=== PATIENT | female | born 1975 | race Asian ===

== ENCOUNTER 2024-10-13 15:16 | Inpatient (IN) | payer OTHER, SELFPAY ==
[2024-10-13] VITALS (9 sets, daily range): BP systolic 80–142; BP diastolic 70–114; BMI 26.6
[2024-10-13 14:15] LABS: Glucose - Point of Care 514 mg/dl (70-99)
--- NOTE | 2024-10-13 14:20 | PTCARENOTE ---
Patient arrived to [facility] recovery area with transport from [facility]. [facility] and placed on bed and tele monitor. Accu chek drawn and ORH, labs sent per order and protocol. Pt. AAO x 3 and tachypnic. Pt. on RA, POX
100%. Patient denies chest pain. Dr. Stevenson and hospitalist at bedside assessing patient and obtaining consent. Dr. Stevenson speaking to patient and about intubating patient prior to procedure and vocalized understanding. Patient to be
transferred to labor commissioner.
[2024-10-13 14:29] LABS: Venous Blood Gas B.E. -27.3 mmol/L (-4 to +4); Venous Blood Gas HCO3 5.2 mmol/L (22-27); Venous Blood Gas O2 Sat % 98.9 %; Venous Blood Gas pCO2 29 mmHg (35-48); Venous Blood Gas pO2 119 mmHg (30-50)
[2024-10-13 14:34] LABS: Venous Blood Gas pH 6.86 (7.32-7.43)
--- NOTE | 2024-10-13 14:37 | HPS.HSE ---
Addendum entered and electronically signed by MALIHA Noonan 10/13/24 22:48:
Consult for GI for severe microcytic anemia work up
Iron, B12 and Folate labs entered for morning
Original Note:
Family Physician
-
Family Physician: Elana Valadez
Chief Complaint
-
flu like symptoms
History of Present Illness
Patient is a 49-year-old female with no significant past medical history. She presented to [facility] ED for evaluation of flu like symptoms since Thursday. She reported that she had some chest pain on Thursday which resolved. She presented
short of breath, complaint of body aches and 2 episodes of bloody emesis. Has been utilizing Tylenol for pain, last dose at 0400. Reports having taken some aspirin. Patient does report drinking red Gatorade prior to emesis, but feels the second
episode of emesis contained clots and that episode she did not ingest any red Gatorade. Patient transferred from [facility] to [facility] for ACS requiring catheterization and DKA management. Patient denies any fever, chills, cough,
constipation, diarrhea or urinary symptoms.
Medical History
Past Medical History
Past Medical History: Reports None
Past Surgical History: Reports Other
Additional Past Surgical History:
x2
Social History
Tobacco: Non-smoker
Alcohol: Occasional
Personal:
Living: With Family
Family History
Family History: Other (Mother: DM)
Allergies / Home Medications
Allergies reflects when Allergies were last updated in [facility].
Home Medications with original date entered in [facility]
Allergy/Medication List:
Allergies
Allergy/AdvReac Type Severity Reaction Status Date / Time
No Known Allergies Allergy Unverified 10/13/24 15:08
Review of Systems
-
History Source: Patient
Constitutional: Reports Fever
EENT: Reports No Symptoms
Respiratory: Reports Cough and Trouble Breathing (shortness of breath)
Cardiac: Reports Chest Pain
Abdomen/GI: Reports Nausea, Vomiting and Other (bloody emesis )
: Reports No Symptoms
Musculoskeletal: Reports No Symptoms
Skin: Reports No Symptoms
Neurological: Reports No Symptoms
Endocrine: Reports No Symptoms
Hematologic/Lymphatic: Reports No Symptoms
Psych: Reports No Symptoms
Physical Exam
Vital Signs
Vital Signs
Temp Pulse Resp BP Pulse Ox
97.7 F 103 26 103/82 99
10/13/24 14:11 10/13/24 14:34 10/13/24 14:34 10/13/24 14:34 10/13/24 14:34
Physical Exam
General: Well Developed, Well Nourished and Appears in Distress
HEENT: NormoCephalic, Moist mucous membranes, Atraumatic, [place]ley Conjunctivae, Nose Appears Normal and Ears Appear Normal
Respiratory: Clear and Accessory Resp Muscle Use
Cardiac: S1/S2, Regular Rhythm and Tachycardia; No Murmur or Rub
Breast: Deferred by me
GI: Soft, Non Tender, Non Distended and Normal Bowel Sounds; No Organomegaly
Rectal: Deferred by Provider
Genito-urinary: Deferred by me
Musculoskeletal: No Clubbing, No Cyanosis and No Edema
Skin: Warm and IV/Catheter Site; No Rash
Neuro: Awake, Alert, AO x 3 and Nonfocal/grossly intact
Psych: Intact Judgment/Insight and Anxious
Data Reviewed
-
Medical Tests (Nuc Med, Echo, EKG etc): Report Reviewed by me
Lab Data: Labs Reviewed by me
Impression/Plan
-
IMPRESSION/PLAN:
#STEMI
EKG: Critical Test Result: STEMI
SINUS TACHYCARDIA
MINIMAL VOLTAGE CRITERIA FOR LVH, MAY BE NORMAL VARIANT ( [place] product )
INFERIOR INFARCT , POSSIBLY ACUTE
ANTEROSEPTAL INFARCT , POSSIBLY ACUTE
LATERAL INJURY PATTERN
PROLONGED QT
ACUTE AK / STEMI
Trop 38.600
- Admit to ICU
- consult cardiology
- consult molder fitting
- NPO
- IVF
- intubation planned prior to cardiac catheterization
#DKA
VBG pH: 6.86; pCO2: 29, pO2: 119, HCO3 5.2
Glucose 508
K+ 4.7
- insulin gtt protocol for DKA
- monitor BMP
- IVF
#acute kidney injury
BUN 28, Creat 1.2
- IVF
#mallor-mishra tear?
hematemesis possible
- Protonix IV BID
- monitor h/h as patient on heparin gtt
Code status: Full code
DVT Prophylaxis: Heparin gtt
--- NOTE | 2024-10-13 14:39 | W.PN.CARDCBS ---
Addendum entered and electronically signed by Beatriz Stevenson MD 10/13/24 18:07:
I saw and examined the patient.
The Etiologist's note was reviewed and I agree with the note.
Comment: Briefly, patient is a 49-year-old female with no known past medical history, last outpatient evaluation more than 11 years ago who presented to [facility] with generalized bodyaches, nausea and vomiting with 1 episode of possible
hematemesis after experiencing a full day of chest pain on Thursday, October 10, 2024 found to have significant in EKG changes concerning for an anterolateral ST elevation MD with Q waves throughout consistent with late presenting MD with presentation
complicated by severe metabolic acidosis secondary to DKA from new type 2 diabetes mellitus, HANNA, microcytic anemia. Of note, bedside urgent echocardiogram was completed at [facility] prior to transfer which showed estimated LVEF of 30 to
35% with wall motion abnormalities in the LAD territory and presence of left ventricular thrombus.
.
Upon presentation to the [facility] patient was immediately evaluated at bedside. She was found to be extremely tachypneic with significant work of breathing. Given concern that with her significant metabolic acidosis, with sedation she
may not be able to maintain her ventilation, we discussed urgent intubation especially in the light of repeat venous blood gas showing a pH of 6.86 (previously 7.03 at [facility] prior to transfer), pCO2 of 29 (20 previously at [place] [facility] prior to transfer) suggesting that she may be tiring out.
Prior to intubation informed consent was obtained reviewing the risk and benefits with patient, her as well as her aunt and uncle for urgent left and right heart catheterization.
Urgent lab work were sent and discussions were also had with admitting hospitalist team as well as ICU team who would be receiving the patient after heart catheterization.
See further recommendations based on heart catheterization report.
Beatriz Stevenson MD, [facility], [facility]
Total critical care time: 72mins
Original Note:
Today's Communication / Plan
-
Admit ICU post cath for DKA treatment
Intubate prior to cath with acute acidosis
[facility] +/- PCI
Impression / Plan
-
This is a summary, see scanned H&P
49 YOF with no known medical hx has not seen MD since her last in 2013, she presented with several days of dyspnea, nausea, fatigue, and body pains. She experienced significant chest pain on Thursday but thought it was gas and it eventually
subsided. After that she continued to feel short of breath and nauseous.
She vomited several times and today noticed some small clots in her emesis.
She came to the ED and EKG showed anterolateral ST elevations with Q waves.
There were also some ST elevations in the inferior leads with WI depression.
Given somewhat atypical presentation and EKG findings, patient was sent for stat CT chest to rule out esophageal tear leading to pericarditis. This was negative.
Labs then returned and showed troponin elevated to 2400, with leukocytosis to 33, thrombocytosis to 700. Then, chemistry results returned and showed DKA with severe hyperglycemia and acidosis to 7.0 on VBG.
Currently patient denies any active chest pain and remains hemodynamically stable aside from mild sinus tachycardia to 100.
She does admit to polyuria and polydipsia for at least the past 2 weeks. No prior known diagnosis of diabetes. But does have family members with diabetes.
Stat echo performed in the emergency department shows moderately depressed LV function with EF around 35%. Anteroseptum, anterior, apical segments appear severely hypokinetic. Contrast echo views show mural apical LV thrombus.
10/13/24: CTA chest
1. No definite CT evidence for esophageal rupture. No evidence of pneumomediastinum.
2. 1.4 cm ovoid structure interposed between the distal esophagus and aorta. This likely represents a paraesophageal lymph node. A small extraluminal collection from the distal esophagus cannot be entirely excluded. If clinical symptoms persist
consider barium swallow /esophagram, as a follow-up
3. Fatty infiltration of the liver
4. Cholelithiasis
Impression:
Late presentation MD
Acute systolic HFrEF 30-35%
Apical mural thrombus of LV
Acute DKA, newly diagnosed diabetes
Lactic acidosis
HANNA Cr 1.6 pre CTA chest
Acute Transaminitis
Plan:
Transferred today for [facility] with EKG showing large anterolateral ST elevations with Q waves.
Tachycardic and tachypneic, VBG acidotic 6.86
denies cp currently
Plan to intubate pre cath with her worsening acidosis
serial troponin to peak
ASA 325mg given at [facility]
DKA start insulin drip now, hospitalist to manage
LV thrombus - will need anticoagulation, will resume heparin drip after cath
Trend LFT's - ALT 64, AST 478, Alk phos 163
WBC 33 and PLT 700. Hemoglobin nearly normal at 10.8.
VB.03/20. Lactic acid 2.7
BMP: Sodium 126, potassium 5.8, chloride 88, CO2 5.7, anion gap 32, BUN 33, creatinine 1.6. Glucose 713.
Troponin 2494. CPK 1591
Progress Note - Creative Services Producer
Subjective
Date of Service: October 13, 2024
denies cp, working to breath, very dry mouth, polyuria
Objective
Labs:
Laboratory Last Values
WBC 33.7 10^3/uL (4.5-11.0) H* 10/13/24 11:54
RBC 5.96 10^6/uL (4.20-5.40) H 10/13/24 11:54
Hgb 10.8 gm/dL (11.3-15.0) L 10/13/24 11:54
Hct 38.7 % (34.0-44.0) 10/13/24 11:54
MCV 65 fl (82-98) L 10/13/24 11:54
RDW 20.9 % (11.0-15.0) H 10/13/24 11:54
Plt Count 701 10^3/uL (150-400) H 10/13/24 11:54
Neut % (Auto) Not Reportable 10/13/24 11:54
Lymph % (Auto) Not Reportable 10/13/24 11:54
[place] % (Auto) Not Reportable 10/13/24 11:54
Eos % (Auto) Not Reportable 10/13/24 11:54
Baso % (Auto) Not Reportable 10/13/24 11:54
Neut # (Auto) 31.5 10^3/uL (2.2-8.0) H 10/13/24 11:54
Lymph # (Auto) 0.7 10^3/uL (1.0-4.0) L 10/13/24 11:54
[place] # (Auto) 1.1 10^3/uL (0.0-1.0) H 10/13/24 11:54
Eos # (Auto) 0.0 10^3/uL (0.0-0.4) 10/13/24 11:54
Baso # (Auto) 0.1 10^3/uL (0.0-0.1) 10/13/24 11:54
Neutrophils % (Manual) 87 % (40-78) H 10/13/24 11:54
Band Neuts % (Manual) 8 % (0-12) 10/13/24 11:54
Lymphocytes % (Manual) 2 % (21-49) L 10/13/24 11:54
Monocytes % (Manual) 3 % (0-10) 10/13/24 11:54
Eosinophils % (Manual) 0 % (0-4) 10/13/24 11:54
Basophils % (Manual) 0 % (0-1) 10/13/24 11:54
Giant Platelets Noted 10/13/24 11:54
Polychromasia Noted 10/13/24 11:54
Poikilocytosis Noted 10/13/24 11:54
Anisocytosis Noted 10/13/24 11:54
PT 16.3 SECONDS (11.5-14.4) H 10/13/24 11:54
INR 1.29 INR 10/13/24 11:54
APTT 27 SECONDS (23-37) 10/13/24 11:54
Specimen Type Venous 10/13/24 12:54
Puncture Site Venous 10/13/24 12:54
Patient Temperature 37.0 C 10/13/24 12:54
Horace Test Venous 10/13/24 12:54
VBG pH at Pat Temp 7.03 (7.32 - 7.42) L* 10/13/24 12:54
VBG pCO2 at Pat Temp 20.0 mmHg (41.0 - 51.0) L 10/13/24 12:54
VBG pO2 at Pat Temp 38.0 mmHg (25.0 - 40.0) 10/13/24 12:54
VBG HCO3 5.3 c)mmol/L (22.0 - 29.0) L 10/13/24 12:54
VBG O2 Saturation 49 % (60.0 - 80.0) L 10/13/24 12:54
VBG O2 Content 7.0 ml/dl 10/13/24 12:54
VBG Base Excess -23.8 (B) mmol (-4.0 - 5.0) L 10/13/24 12:54
VBG Hgb O2 Saturation 48.0 % (60.0 - 80.0) L 10/13/24 12:54
VBG Total Hgb 11.0 g/dL (12.1-17.0) 10/13/24 12:54
VBG Carboxyhemoglobin 1.3 % (0.0 - 9.0) 10/13/24 12:54
VBG Methemoglobin 0.7 % (0.0 - 2.0) 10/13/24 12:54
VBG Sodium 124 mmol/L (136.0 - 145.0) L 10/13/24 12:54
VBG Potassium 5.6 mmol/L (3.5 - 5.1) H 10/13/24 12:54
VBG Chloride 95.00 mmol/L (98.0 - 107.0) L 10/13/24 12:54
VBG Ionized Calcium 5.18 mg/dL (4.6 - 5.32) 10/13/24 12:54
VBG Lactate 2.70 mmol/L (0.5 - 1.4) H 10/13/24 12:54
Sodium 126 mmol/L (136-145) L 10/13/24 11:54
Potassium 5.8 mmol/L (3.5-5.1) H 10/13/24 11:54
Chloride 88 mmol/L (98-107) L 10/13/24 11:54
Carbon Dioxide 5.7 mmol/L (22.0-29.0) L* 10/13/24 11:54
Anion Gap 32 (7-16) H* 10/13/24 11:54
BUN 33 mg/dL (6-20) H 10/13/24 11:54
Creatinine 1.61 mg/dL (0.50-0.90) H 10/13/24 11:54
GFR Calculation 39 (Over 90) L 10/13/24 11:54
BUN/Creatinine Ratio 20.3 (7.0-25.0) 10/13/24 11:54
Random Glucose 715 mg/dL (50-200) H* 10/13/24 11:54
Calcium 9.8 mg/dL (8.6-10.0) 10/13/24 11:54
Total Bilirubin 0.4 mg/dL (0.1-1.2) 10/13/24 11:54
AST 478 U/L (0-32) H 10/13/24 11:54
ALT 64 U/L (0-33) H 10/13/24 11:54
Alkaline Phosphatase 163 U/L (35-105) H 10/13/24 11:54
Total Creatine Kinase 1591 U/L (20-180) H 10/13/24 11:54
CK-MB (CK-2) 78.1 ng/mL (0.0-5.0) H 10/13/24 11:54
CK-MB (CK-2) Rel Index 4.9 ng/100IU (0-2.8) H 10/13/24 11:54
Troponin T 5th Gen ng/L 2494 ng/L (0-14) H* 10/13/24 11:54
Total Protein 8.5 g/dL (6.5-8.3) H 10/13/24 11:54
Albumin 4.5 g/dL (3.5-5.2) 10/13/24 11:54
Globulin 4.0 g/dL (2.3-3.5) H 10/13/24 11:54
Albumin/Globulin Ratio 1.1 (1.1-1.7) 10/13/24 11:54
Influenza A (PCR) Negative (NEGATIVE) 10/13/24 11:42
Influenza B (RT-PCR) Negative (NEGATIVE) 10/13/24 11:42
POC RSV (DOREEN) Negative (NEGATIVE) 10/13/24 11:42
SARS-CoV-2 (PCR) Negative (NEGATIVE) 10/13/24 11:42
Vital Signs and I&O:
Vital Signs
Temp Pulse Resp BP Pulse Ox
97.7 F 103 26 103/82 99
10/13/24 14:11 10/13/24 14:34 10/13/24 14:34 10/13/24 14:34 10/13/24 14:34
Vital Signs
Temp Pulse Resp BP Pulse Ox
97.7 F 103 26 103/82 99
10/13/24 14:11 10/13/24 14:34 10/13/24 14:34 10/13/24 14:34 10/13/24 14:34
Physical Exam
Physical Exam
Mildly distressed with increased WOB, AOx3
S1, S2, RRR
CTAB, labored breathing, no wheeze
SNTND bsx4
No LE edema
--- NOTE | 2024-10-13 14:46 | HPS.HSE ---
Addendum entered and electronically signed by David Pride MD 10/13/24 14:51:
NOTE ENTERED IN WRONG PATIENT. DISREGARD.
Original Note:
Family Physician
-
Family Physician: Elana Valadez
Chief Complaint
-
shortness of breath
History of Present Illness
shortness of breath
Medical History
Past Medical History
Past Medical History: Reports Other (hypertension, Raynaud's)
Past Surgical History: Reports None
Social History
Tobacco: Non-smoker
Alcohol: Occasional
Drug: None
Family History
Family History: Other (His father had esophageal cancer.)
Allergies / Home Medications
Allergies reflects when Allergies were last updated in [facility].
Home Medications with original date entered in [facility]
Allergy/Medication List:
None
Review of Systems
-
History Source: Patient
A 12 point ROS was completed and negative except as noted: Yes
Constitutional: Reports No Symptoms
EENT: Reports No Symptoms
Respiratory: Reports No Symptoms
Cardiac: Reports No Symptoms
Abdomen/GI: Reports No Symptoms
: Reports No Symptoms
Musculoskeletal: Reports No Symptoms
Skin: Reports No Symptoms
Neurological: Reports No Symptoms
Endocrine: Reports No Symptoms
Hematologic/Lymphatic: Reports No Symptoms
Psych: Reports No Symptoms
Physical Exam
Vital Signs
Vital Signs
Temp Pulse Resp BP Pulse Ox
97.7 F 103 26 103/82 99
10/13/24 14:11 10/13/24 14:34 10/13/24 14:34 10/13/24 14:34 10/13/24 14:34
Physical Exam
General: Well Developed, Well Nourished and No Apparent Distress
HEENT: NormoCephalic, Moist mucous membranes and Atraumatic
Respiratory: Clear
Cardiac: S1/S2 and Regular Rhythm; No Murmur or Rub
GI: Soft, Non Tender, Non Distended and Normal Bowel Sounds; No Organomegaly
Rectal: Deferred by Provider
Musculoskeletal: No Clubbing, No Cyanosis and No Edema
Skin: No Rash
Neuro: Nonfocal/grossly intact
Data Reviewed
-
Lab Data: Labs Reviewed by me
Old Records: Reviewed
Impression/Plan
-
IMPRESSION:
PLAN:
# Symptomatic acute blood loss anemia secondary to upper GI bleeding
-Hemoglobin of 8.1
-Type and screen
-Check iron studies, B12 and folate
-Protonix drip
-GI consulted
-Clear liquids, n.p.o. past midnight for EGD tomorrow
Essential hypertension
-Continue losartan
Raynaud's disease
Full code
DVT prophylaxis�SCDs
N.p.o. past midnight
--- NOTE | 2024-10-13 15:08 | W.PN.ANESINT ---
Anesthesia Intubation Note
- Intubation Note
Intubation Note:
Diagnosis: [place], DKA, respiratory insufficiency
Blade: mac 4
Tube Size: 7.0
Depth: 21
Side Taped: right
Drugs Used: propofol 80mg, versed 2mg, fentanyl 100mcg, phenylephrine 400mcg, rocuronium 30mg
Grade View: 1
EtCO2 Present: yes
Atraumatic: yes
Attempts: 1
Insertion Start and Stop Time: 9554-0046
SaO2 Pre: 98
SaO2 Post: 98
Glidescope Used: yes
Other Airway Adjustments:
Pre-Oxygenated: yes
Portable Chest X-Ray: pending
RSI:
Suctioned:
Bilateral Breath Sounds Confirmed: yes
Vent Settings:
Settings per __x_Attending Physician
[2024-10-13 15:18] LABS: ALT (SGPT) 54 U/L (0-35); AST (SGOT) 437 U/L (14-36); Albumin 4.4 g/dl (3.5-5.0); Alkaline Phosphatase 160 U/L (38-126); Blood Urea Nitrogen 28 mg/dl (7-17); Calcium 9.1 mg/dl (8.4-10.2); Carbon Dioxide < 5 mmol/L (22-30); Chloride 103 mmol/L (98-107); Estimated Creatinine Clearance 50 ml/min; Glucose 508 mg/dl (70-99); Potassium 4.7 mmol/L (3.5-5.1); Sodium 133 mmol/L (135-145); Total Bilirubin 0.4 mg/dl (0.2-1.3); Total Protein 7.9 g/dl (6.3-8.2); eGFR 56.19
--- NOTE | 2024-10-13 15:28 | W.PN.UPDATE ---
Update Note
Progress Note Update
This is an addendum to the H&P written by Shania Zambrano on 10/13/2024. Patient seen and examined independently with KENO DEALER.
49-year-old female without past medical history presenting as transfer from [facility] for concern of myocardial infarction.
She started having chest pain 3 days ago which did resolve. She has also been having daily vomiting with blood noticed in the vomit however this was preceded by drinking red Gatorade. She has also been having increased urinary frequency.
She was noted to have blood sugar greater than 500, tachypnea. VBG showed pH of 7. Presentation was consistent with DKA.
EKG showed ST elevations in anterior lateral leads. Troponin of 38. Labs show HANNA with severe anion gap metabolic acidosis. Mild transaminitis.
Echocardiogram reportedly showed EF of 30 to 35% as well as LV thrombus.
NPO. IV fluids with normal saline with 20 of potassium. Insulin drip. Check urinalysis. Check hemoglobin A1c.
Trend troponins. Aspirin, heparin drip. Patient to be intubated prior to cardiac catheterization.
Unclear whether hematemesis is true hematemesis or secondary to Amanda-Meyer tear. 40 IV twice daily Protonix. Carefully monitor as patient will be on heparin drip and continue to monitor hemoglobin.
[2024-10-13 15:57] LABS: ACT-LR - POC 219 Seconds (116-155)
[2024-10-13 16:08] LABS: PCO2 21 mmHg (32-35); PO2 179 mmHg (83-108)
--- NOTE | 2024-10-13 16:10 | CON.INTV ---
Consultation
Consultation Request
Date/Time Consultation Requested: 10/13/2024 - 1539
Date/Time Consultation Performed: 10/13/2024 - 1600
Requesting Provider: MALIHA Noonan
Performing Provider: Dr. Nunez
Reason for Consultation: DKA/STEMI
Medical History
-
Chief Complaint: chest pain
History of Present Illness:
49-year-old F with no known PMHx who presented to OSH at [facility] on 10/13/2024 with several days of SOB, nausea, fatigue and body aches. HPI obtained from medical records as pt is intubated. She had chest pain this past Thursday, but thought it was gas
and it subsided. Her SOB and nausea persisted though. She came to the ER and EKG showed anterolateral ST elevations with Q-waves, with ST elevations in inferior leads with RI-depressions. Ct chest ruled out esophageal tear. Labs showed an
elevated troponin to 2400, WBC 33, platelet 700 and chemistry showed evidence of DKA with acidosis (pH 7 on VBG). She's been having polyuria and polydipsia x 2 weeks as well. She denies a personal or family Hx of diabetes. Of note, she vomited
blood clots on day of ER arrival as well. Stat echo in the ER at [facility] showed depressed LVEF around 35% with severely hypokinetic anteroseptal, anterior, apical segments. Contrast echo showed a mural apical thrombus. She was Dx with a late
presentation anterior ND, and was TRX here to [place] for cardiac intervention. Prior to TRX she was given 325mg ASA and started on heparin gtt. Given a NS bolus and insulin gtt also started.
When I saw the patient she had just returned from the [facility]. There was 100% thrombotic occlusion in the mid LAD we then organized nonocclusive thrombus in the proximal LAD with 95% stenosis. No significant improvement in flow despite multiple
passes of mechanical aspiration thrombectomy balloon angioplasty and vasodilators. The wedge pressure was 25 with a mPAP of 25 mmHg. Also normal left-sided filling pressures with normal cardiac output/index of 4.7/2.9, respectively. PVR was 2.72
Wood units. Patient currently intubated on AC/CMV at: 24/400/5/40%, with PIP: 27 cmH2O, VTe 493 mL and breathing at 24-30 breaths/min. She is sedated on fentanyl gtt at 50mcg/hr and currently on insulin drip at 6 units/hr. Her aunt had come to
bedside and I answered all of her questions.
PMHx: no known PMHx
PSHX: No known
Past Medical History
Past Medical History: Other (above as per HPI)
Past Surgical History: Other (above as per HPI)
Social History
Tobacco: Non-smoker
Alcohol: Other (unable to obtain)
Drug: Other (unable to obtain)
Family History
Family History: CAD (Father), Cancer (Aunt - breast cancer), Diabetes (Mother) and Hypertension (Mother)
Allergies / Home Medications
Allergies
Allergy/AdvReac Type Severity Reaction Status Date / Time
No Known Allergies Allergy Unverified 10/13/24 15:08
Review of Systems
-
Unable to Obtain full review of systems at this time due to: Patient Intubation
Vitals / Labs / Diagnostic Testing
Vital Signs
Temp Pulse Resp BP Pulse Ox
97.7 F 103 26 103/82 99
10/13/24 14:11 10/13/24 14:34 10/13/24 14:34 10/13/24 14:34 10/13/24 14:34
Lab Data
10/13/24 15:55
Laboratory Results
10/13/24
15:55
pH 7.01 L*
pCO2 21 L
pO2 179 H
HCO3 5.3 L*
O2 Delivery Level
Diagnostic Testing:
Physical Exam
-
HEENT: Normocephalic, Anicteric and Other (ETT in place)
Cardiovascular: S1/S2, Rub (n) and Peripheral Edema (n)
Respiratory: Wheeze (n), Rales (n), Rhonchi (n), Non-Labored Respirations and Other (Mechanical breath sounds bilaterally)
GI: Soft, Non Distended, Non Tender and Normal Bowel Sounds
Neurology: Tremors (n) and Other (Sedated)
Skin: Warm and Dry
General: Respiratory Distress (n), Fever (n) and Chills (n)
Assessment
-
Assessment: 49-year-old F with no known PMHx who presented to OSH at [facility] on 10/13/2024 with several days of SOB, nausea, fatigue and body aches. HPI obtained from medical records as pt is intubated. She had chest pain this past Thursday, but thought
it was gas and it subsided. Her SOB and nausea persisted though. She came to the ER and EKG showed anterolateral ST elevations with Q-waves, with ST elevations in inferior leads with RI-depressions. Ct chest ruled out esophageal tear. Labs
showed an elevated troponin to 2400, WBC 33, platelet 700 and chemistry showed evidence of DKA with acidosis (pH 7 on VBG). She's been having polyuria and polydipsia x 2 weeks as well. She denies a personal or family Hx of diabetes. Of note, she
vomited blood clots on day of ER arrival as well. Stat echo in the ER at [facility] showed depressed LVEF around 35% with severely hypokinetic anteroseptal, anterior, apical segments. Contrast echo showed a mural apical thrombus. She was Dx with a late
presentation anterior ND, and was TRX here to [place] for cardiac intervention. Prior to TRX she was given 325mg ASA and started on heparin gtt. Given a NS bolus and insulin gtt also started.
Chronic conditions STEVEDORE HOLD: Non-contributory
Impression:
#ACS with late presentation anterolateral STEMI
#DKA without history of diabetes
#Pseudohyponatremia due to DKA with hyperglycemia
#Severe metabolic acidosis due to above
#Acute respiratory failure with hypercapnia (undercompensation in the setting of metabolic acidosis)
#Apical LV mural thrombus (reported from outside hospital echo)
#Leukocytosis
#Anemia with reported bloody emesis at [facility]
#Thrombocytosis (likely reactive)
#Transaminitis
#Elevated troponin due to ACS as above in the setting of HANNA
#ICM with LVEF: 30-35% without current evidence of left-sided heart failure (PCWP: 12mmHg per [facility] today)
Plan:
- Patient going to [facility] today and I spoke with the pharmacy teacher, Dr. Stevenson, and recommended to intubate the patient prior to performing left heart catheterization given the patient's extremely low pH with risk of worsening respiratory acidosis
if anesthesia is given, which would put her at risk of cardiac arrest
- Patient now returned from the [facility] to the ICU; there was 100% thrombotic occlusion in the mid LAD we then organized nonocclusive thrombus in the proximal LAD with 95% stenosis. No significant improvement in flow despite multiple passes of
mechanical aspiration thrombectomy balloon angioplasty and vasodilators. The wedge pressure was 25 with an mPAP of 25 mmHg. Also normal left-sided filling pressures with normal cardiac output/index of 4.7/2.9, respectively. PVR was 2.72 Wood
units. Her PVR was 2.72, CO/CI: 4.78/2.94 (Franny), RA: 11/9, RV: 41/8
- Follow-up cath report and continue with heparin drip for now (defer antiplatelet medications + statin to cardiology
- Lightly sedate with goal RASS 0 to -2
- Continue to trend blood gas now that she is intubated to assure pH is improving
- Continue with mechanical ventilation with daily SAT/SBT if clinically indicated
- Titrate FiO2 + PEEP to maintain SpO2 >94%
- Maintain plateau pressure <30
- Frequent oropharyngeal + deep ETT suctioning as needed
- Given her leukocytosis, would start empiric antibiotics with Unasyn after cultures obtained (see below)
- Also check CXR as no imaging done since admitted here today
- Check blood and respiratory Cx; check UA with reflex to Cx
- Continue insulin gtt
- Start 1/2-NS with 20mEq KCl at 250cc/hr; add supplemental dextrose once BG <250mg/dL
- Trend electrolytes with q4hr BMP, Mg and PO4; trend VBG q12hr
- Avoid hypokalemia and avoid hypoglycemia
- Check q1hr FS while on insulin gtt
- Start bicarb gtt given the severe acidosis; once pH >7.25 then would stop bicarb gtt at that time
- Check A1C
- Check lipid profile with goal LDL<70
- Maintain MAP>65
- Replete electrolytes with K>4, Mg>2
- Maintain euglycemia with goal BG 140-180
- Trend H/H and transfuse if needed to keep Hb>8g/dL; keep plt>50k
- prn nebulized bronchodilators - not currently bronchospastic
- Stress ulcer ppx: On PPI IV BID currently given reports of UGIB at [facility]
- Consult GI
- Maintain large bore IV x2
- DVT ppx: heparin gtt given her LV thrombus
Critical care statement: A total of 43 minutes of critical care time was provided for this patient today. This includes management of unstable vital signs, evaluation of the patient at bedside, reviewing the patient's pertinent medical records
including radiographs, microbiology, laboratory evaluations, and discussion with primary team, consultants, pharmacy, nutrition, physical therapy, case management, charge nurse, critical care nursing, and respiratory therapy.
Data:
Outside Hospital TTE 10/13/2024:
LVEF: 30-35%; Multiple segmental abnormalities exist. Mild eccentric LVH; moderately decreased LV systolic function; grade II diastolic dysfunction, pseudonormal pattern; Laminated mural thrombus of the LV apex suggested on contrast images; normal
RV size and function; Normal LA by volume index and normal RA by area; Mild MR; RAP is 3mmHg with estimated RVSP: 17mmHg. No prior studies available for comparison.
[2024-10-13 16:12] LABS: HCO3 5.3 mmol/L (21-28); pH 7.01 (7.35-7.45)
[2024-10-13 16:15] LABS: ACT-LR - POC 266 Seconds (116-155)
[2024-10-13 16:16] LABS: Lactic Acid 0.8 mmol/L (0.7-2.0)
[2024-10-13 16:17] LABS: Potassium 3.9 mmol/L (3.5-5.1)
[2024-10-13 16:27] LABS: ACT-LR - POC 250 Seconds (116-155)
[2024-10-13 16:36] LABS: Glucose - Point of Care 411 mg/dl (70-99)
[2024-10-13 16:37] LABS: Hematocrit 31.2 % (37.0-47.0); Hemoglobin 9.1 g/dL (12.0-16.0); Mean Corp Hgb Conc. 29.2 g/dL (33.0-37.0); Mean Platelet Volume 9.8 fL (7.4-10.4); Platelet Count 639 10^3/uL (130-400); Red Cell Dist. Width 20.4 % (11.5-14.5); White Blood Cell Count 37.1 10^3/uL (4.8-10.8)
--- NOTE | 2024-10-13 17:00 | ITS.CL.CATH ---
Director Al[employer] Relations - Catheterization
Cardiac Catheterization
Procedure Report:
LEFT AND RIGHT HEART CATHETERIZATION
Date of Procedure: October 13, 2024
Referring: Hossein Aguirre MD
PROCEDURES:
1. Coronary angiogram.
2. Right heart catheterization.
3. Mechanical aspiration thrombectomy using penumbra CAT RX
4. Plain old balloon angioplasty
5. Ultrasound-guided access
6. Placement of a single-lumen catheter for right radial arterial line
INDICATION: Patient is a 49-year-old female with no known past medical history, last outpatient evaluation more than 11 years ago who presented to [facility] with generalized bodyaches, nausea and vomiting with 1 episode of possible
hematemesis after experiencing a full day of chest pain on Thursday, October 10, 2024 found to have significant in EKG changes concerning for an anterolateral ST elevation CA with Q waves throughout consistent with late presenting CA with presentation
complicated by severe metabolic acidosis secondary to DKA from new type 2 diabetes mellitus, HANNA, microcytic anemia with significant increased work of breathing requiring intubation right upon transfer being referred for urgent left and right heart
catheterization. Of note, bedside urgent echocardiogram was completed at [facility] prior to transfer which showed estimated LVEF of 30 to 35% with wall motion abnormalities in the LAD territory and presence of left ventricular thrombus.
ACCESS: 1. Right radial artery, 6 Swazi sheath, under ultrasound guidance
2. Right common femoral vein, 6 Swazi sheath, under ultrasound guidance using a micropuncture kit
Ultrasound was utilized for vascular access. The radial artery and right femoral vein was visualized under ultrasound, and the vessel was patent. An image was stored permanently in the patient's medical record for each. Under direct ultrasound
guidance, a 6 Swazi sheath was inserted into the artery and vein, respectively, using a micropuncture kit through a modified Seldinger technique.
HEMODYNAMICS : (mmHg)
RA (m) : 8
RV (s/d,m) : 41/8, 11
PA (s/d, m) : 33/18, 25
PCWP (m) : 12
PA saturation: 73.2% on 40% FiO2
AO saturation: 99.5% on 40% FiO2
RA saturation: 75.1% on 40% FiO2
Cardiac Output : 4.70 L/min by Franny calculation
Cardiac Index : 2.94 L/min/m-2 by Franny calculation
Systemic vascular resistance: 1404 dsc^(-5)
Pulmonary vascular resistance: 2.72 burroughs unit
Heart rate: 109 bpm
AO (s/d) : 111/75
LV pressures were not measured with known left ventricular thrombus on echocardiogram at [facility].
CORONARY FINDINGS
DOMINANCE: Right
LEFT MAIN: The left main artery is a large-caliber vessel, short which gives rise to the left anterior descending artery and the left circumflex artery. There is minimal luminal irregularities.
LEFT ANTERIOR DESCENDING: The left into descending artery is a large-caliber vessel which gives rise to multiple small caliber diagonal branches. There is 100% thrombotic occlusion in the mid LAD with PAUL 0 flow. Proximal LAD has a large burden
of what appears to be organized nonocclusive thrombus, with 95% stenosis.
CIRCUMFLEX: The left circumflex artery is a medium to large caliber vessel which gives rise to 2 major obtuse marginal branches, moderately tortuous, there is minimal luminal irregularities.
RIGHT CORONARY ARTERY: The right coronary artery is a large caliber, dominant, moderately tortuous vessel which is rise to the right posterior descending artery and the right posterolateral system. There is minimal luminal irregularities.
SEDATION: 103 minutes of procedural sedation was utilized. An independent medical surgical tech was present to assist with and help manage the patient's level of consciousness and physiologic status.
RADIATION SUMMARY: Fluoro Time (min): 12.1, Dose (mGy): 498.7, DAP (Gy.cm2) : 38.76
Closure Device: 1. Vascular band over right radial artery. Of note right radial arterial line was placed using the same access over a wire exchange using a single-lumen catheter.
2. Venous sheath was sutured in place for access.
CONCLUSIONS
1. Late presenting anterolateral ST elevation CA with There is 100% thrombotic occlusion in the mid LAD with PAUL 0 flow. Proximal LAD has a large burden of what appears to be organized nonocclusive thrombus, with 95% stenosis. No significant
improvement in flow despite multiple passes of mechanical aspiration thrombectomy, balloon angioplasty and vasodilators.
2. Normal right and left-sided filling pressures with normal cardiac output.
RECOMMENDATIONS
1. Wean radial band per protocol.
2. Daily baby aspirin. Hold off for now on adding second antiplatelet agent until microcytic anemia is worked up. IV unfractionated heparin drip in 4 hours if no issues at access sites given left ventricular thrombus.
3. Close monitoring in the ICU for management of DKA.
4. As hemodynamics allow, goal-directed medical therapy for ischemic cardiomyopathy. Continue to trend lab work given HANNA and abnormal LFTs.
5. Discussed with patient's family about her critically ill status.
Copy to: Hossein Aguirre MD and Lisandra García
Beatriz Stevenson MD, [facility], [facility]
[2024-10-13 17:06] LABS: Glucose 397 mg/dl (70-99)
[2024-10-13 17:36] LABS: Glucose - Point of Care 370 mg/dl (70-99)
[2024-10-13] MEDS: NSS 500 VEN SHEATH (17:49)
[2024-10-13] MEDS: NSS with KCL 20 MEQ 1000 IV (17:50)
[2024-10-13 18:22] LABS: PT 18.3 Sec (11.4-14.6)
[2024-10-13] MEDS: SODIUM BICARBONATE 1150 MEQ IV (18:24)
[2024-10-13] MEDS: 0.45% NACL with KCL 20 MEQ 1000 IV ×2 (18:25→22:20)
--- NOTE | 2024-10-13 18:30 | PTCARENOTE ---
#16 F belgica RAE insterted orally. Placement auscultated and brownish aspirated obtained, will get abd film to verify. Pt has her menses. May have been incont on arrival to ICU- but bladder scanned for [address] cathed for 450mls of yellow
urine. Repositioned.
[2024-10-13 18:37] LABS: Glucose - Point of Care 348 mg/dl (70-99)
[2024-10-13 18:43] LABS: APTT > 200 Sec (23.4-35.0)
[2024-10-13 19:00] LABS: Magnesium 2.6 mg/dl (1.6-2.3); Phosphorus 3.2 mg/dl (2.5-4.5); Potassium 4.2 mmol/L (3.5-5.1)
--- NOTE | 2024-10-13 19:32 | PTCARENOTE ---
Rec. patient from [facility] approx 1650.
Pt. Intubated/Sedated.
Sedation managed w/ Fentanyl gtt, see titration flowsheet for details.
Pt. has R radial TR band in place, Narcisa inserted into sheath site underneath TR band, Thumb of hand dusky, cool, ICU attending notified, no new orders.
Started on Bicarb, Insulin, 0.45/K.
Venous sheath intact.
Family bedside, all questions answered.
[2024-10-13] MEDS: PROTONIX IV 40 MG IV (19:34)
[2024-10-13] MEDS: NSS (PRESERVATIVE FREE) 10 ML IV (19:34)
[2024-10-13 19:52] LABS: B.E. -19.8 mmol/L; O2 Saturation % 99.8 % (94-98); PO2 209 mmHg (83-108)
[2024-10-13 19:54] LABS: HCO3 6.3 mmol/L (21-28); PCO2 16 mmHg (32-35)
[2024-10-13 19:56] LABS: Glucose - Point of Care 280 mg/dl (70-99)
[2024-10-13 20:07] LABS: Urine Albumin 1+ (Neg - Trace); Urine Bilirubin Negative (Negative); Urine Character Clear (Clear); Urine Color Yellow; Urine Glucose 3+ (Negative); Urine Ketone 3+ (Negative); Urine Leukocyte Negative (Negative); Urine Nitrite Negative (Negative); Urine Occult Blood 4+ (Negative); Urine Specific Gravity 1.015 (<1.030); Urine Urobilinogen Negative (Neg - 1+)
[2024-10-13 20:16] LABS: Potassium 4.7 mmol/L (3.5-5.1)
[2024-10-13 20:21] LABS: Blood Urea Nitrogen 26 mg/dl (7-17); Calcium 7.8 mg/dl (8.4-10.2); Carbon Dioxide < 5 mmol/L (22-30); Estimated Creatinine Clearance 66 ml/min; Glucose 266 mg/dl (70-99); Magnesium 2.5 mg/dl (1.6-2.3); Phosphorus 1.5 mg/dl (2.5-4.5); eGFR > 60.00
[2024-10-13 20:26] LABS: Chloride 112 mmol/L (98-107); Potassium 4.5 mmol/L (3.5-5.1); Sodium 134 mmol/L (135-145)
[2024-10-13 20:39] LABS: Urine Bacteria Few (Negative); Urine Granular Cast >15 /LPF (0); Urine Squamous Cell 0-2 /LPF (Few); Urine White Cell 0-2 /HPF (0-5)
[2024-10-13 20:44] LABS: Glucose - Point of Care 247 mg/dl (70-99)
--- NOTE | 2024-10-13 20:50 | PTCARENOTE ---
Received pt from previous RN. Pt opens eyes, nods her head appropriately, mouths words. NSR w/ prolonged QT on the monitor, + pedals. ETT #7 22 @ lip. AC 24/400/40%/5, O2 sat 100%. OG tube to low intermittent suction. Right thumb suzanna. TR band in
place, 3 mls removed @ 1949 site c/d/i, another 3 ml removed @ 2019, @ 2044 site was oozing additional 3 mls added (see worklist). Pt with a RASS score of 1, ICU BUTTER MELTER Sai notified Prop gtt added. Insulin, Bicarb, Fent and, 1/2 NS w/ K gtts (see
worklist). Heparin gtt on hold as per Dr. Hooker due to TR band oozing and PTT > 200, repeat PTT @ 0000. Safe environment maintained.
[2024-10-13] MEDS: DIPRIVAN 100 IV (20:52)
[2024-10-13 21:38] LABS: Glucose - Point of Care 230 mg/dl (70-99)
--- NOTE | 2024-10-13 22:36 | PTCARENOTE ---
Glucose of 75 is invalid, recheck was 233.
[2024-10-13 22:46] LABS: Glucose - Point of Care 75 mg/dl (70-99)
[2024-10-13 22:54] LABS: Triglycerides 183 mg/dl (10-149)
--- NOTE | 2024-10-13 23:30 | PTCARENOTE ---
2330 remaining air was removed from the TR band, site intact. Pt bladder scanned for 477 ml. Attempted to straight cath pt, pt voided while being straight cath, bladder scanned after for 0 ml. CHG bath provided. Safe environment maintained.
[2024-10-13 23:45] LABS: Glucose - Point of Care 161 mg/dl (70-99)
[2024-10-13] MEDS: D5/0.45%NSS with KCL 20 MEQ 1000 IV (23:51)
[2024-10-14] VITALS (45 sets, daily range): BP systolic 101–152; BP diastolic 60–100; BMI 27.6
[2024-10-14 00:35] LABS: Glucose - Point of Care 239 mg/dl (70-99)
[2024-10-14 00:48] LABS: APTT 29.8 Sec (23.4-35.0)
[2024-10-14 01:36] LABS: Blood Urea Nitrogen 23 mg/dl (7-17); Calcium 7.5 mg/dl (8.4-10.2); Carbon Dioxide 10 mmol/L (22-30); Chloride 110 mmol/L (98-107); Estimated Creatinine Clearance 74 ml/min; Glucose 215 mg/dl (70-99); Magnesium 2.3 mg/dl (1.6-2.3); Phosphorus 1.1 mg/dl (2.5-4.5); Potassium 4.1 mmol/L (3.5-5.1); Sodium 132 mmol/L (135-145); eGFR > 60.00
[2024-10-14] MEDS: HEPARIN 25000 UNITS/250 ML IV ×2 (01:39→18:11)
[2024-10-14 01:43] LABS: Glucose - Point of Care 280 mg/dl (70-99)
--- NOTE | 2024-10-14 01:57 | PTCARENOTE ---
Around midnight, with TR band removed, no longer able to obtain arterial line reading. No waveform, no blood return, oozing from insertion site with flush. ALEKS Randle at bedside, decision made to remove line. Labs sent and resulted. MD Hooker made
aware of recent PTT result and TR band now off. Order noted to restart Heparin gtt at 800units/hour. Pharmacy notified. Nathaniel joseph. Will repeat PTT at 0740am. Will monitor closely.
[2024-10-14 02:46] LABS: Glucose - Point of Care 284 mg/dl (70-99)
[2024-10-14] MEDS: SODIUM PHOSPHATE 255 MEQ IV (03:17)
[2024-10-14 03:45] LABS: Glucose - Point of Care 328 mg/dl (70-99)
[2024-10-14 03:55] LABS: Venous Blood Gas B.E. -12.4 mmol/L (-4 to +4); Venous Blood Gas HCO3 13.2 mmol/L (22-27); Venous Blood Gas O2 Sat % 98.8 %; Venous Blood Gas pCO2 28 mmHg (35-48); Venous Blood Gas pH 7.28 (7.32-7.43); Venous Blood Gas pO2 136 mmHg (30-50)
--- NOTE | 2024-10-14 04:03 | PTCARENOTE ---
Systems reviewed, no new changes in assessment. AM labs provided. Rate setting changed from 24 to 20. O2 sat 100%. Gtts maintained (see worklist). Safe environment maintained.
[2024-10-14 04:13] LABS: Venous Blood Gas O2 Therapy 50%
[2024-10-14 04:32] LABS: Hematocrit 22.9 % (37.0-47.0); Hemoglobin 6.9 g/dL (12.0-16.0); Mean Corp Hgb Conc. 30.1 g/dL (33.0-37.0); Mean Corpuscular Hgb 18.9 pg (27.0-31.0); Mean Corpuscular Volume 62.6 fL (81.0-99.0); Mean Platelet Volume 9.3 fL (7.4-10.4); Platelet Count 309 10^3/uL (130-400); Red Blood Cell Count 3.66 10^6/uL (4.20-5.40); Red Cell Dist. Width 19.6 % (11.5-14.5); White Blood Cell Count 22.3 10^3/uL (4.8-10.8)
[2024-10-14 04:38] LABS: Blood Urea Nitrogen 22 mg/dl (7-17); Calcium 7.8 mg/dl (8.4-10.2); Carbon Dioxide 11 mmol/L (22-30); Chloride 111 mmol/L (98-107); Estimated Creatinine Clearance 74 ml/min; Glucose 290 mg/dl (70-99); Magnesium 2.3 mg/dl (1.6-2.3); Phosphorus 1.3 mg/dl (2.5-4.5); Potassium 3.7 mmol/L (3.5-5.1); Sodium 133 mmol/L (135-145); eGFR > 60.00
[2024-10-14 04:51] LABS: Glucose - Point of Care 322 mg/dl (70-99)
[2024-10-14 05:01] LABS: Hematocrit 20.4 % (37.0-47.0); Hemoglobin 6.1 g/dL (12.0-16.0)
[2024-10-14] MEDS: NOVOLIN R INSULIN INFUSION 100 IV ×2 (05:27→18:25)
[2024-10-14 05:38] LABS: Glucose - Point of Care 349 mg/dl (70-99)
[2024-10-14] MEDS: D5/0.45%NSS with KCL 20 MEQ 1000 IV ×4 (06:16→23:55)
--- NOTE | 2024-10-14 06:23 | PTCARENOTE ---
1 unit PRBCs hanging, 15 min VS check complete. VSS.
[2024-10-14 06:33] LABS: Glucose - Point of Care 280 mg/dl (70-99)
--- NOTE | 2024-10-14 07:15 | PTCARENOTE ---
Bedside handoff. Intubated and sedated. Bilateral soft wrist restraints intact. Left AC#20g intima with Heparin, fentanyl, propofol, and IVF as charted in work list. Right Upper FA#20g intima with Insulin drip for DKA protocol. Right femoral venous
sheath sutured in place with 0.9nss @30ml/hr. PRBC's infusing via venous sheath. OGT secured 55cm to ETT. #7 ETT secured 22 cm centered, tolerating AC 20/400/.40/+5. Breath sounds CTA anteriorly, diminished posteriorly. Clear oral secretions. Scant
secretions from ETT. Hypoactive BSX4. Incontinent for a large amount of Clear yellow urine. +menses, Small amount of blood noted on sanitary napkin. Sadie care provided.
[2024-10-14 07:16] LABS: HDL Cholesterol 40 mg/dl; Iron < 20 ug/dl (37-170); LDL Cholesterol, Calculated 70 mg/dl; Total Cholesterol 147 mg/dl (50-199); Triglyceride 186 mg/dl (10-149); Very Low Density Lipoprotein 37 mg/dl (0-30)
[2024-10-14 07:56] LABS: Glucose - Point of Care 332 mg/dl (70-99)
[2024-10-14] MEDS: NSS (PRESERVATIVE FREE) IV (08:25)
--- NOTE | 2024-10-14 08:25 | W.PN.INTV ---
Today's Communication / Plan
Recommendations
Trend H&H and hold heparin drip for now, resume later this afternoon if Hb remains stable
EGD today shows esophageal ulcers with no evidence of acute GI bleed
Hold off on starting antiplatelet therapy at least until tomorrow, as per GI
Cardiology on board and recs appreciated
OGT removed and replaced with Dobbhoff tube for tube feeds at PO meds
Continue mechanical ventilation with daily SAT/SBT
Continue insulin drip
Trend [K] and serum HCO3
If bicarb level starts to drop <14 then resume bicarb drip
Patient remains critically ill, continue with ICU level of care
Assessment
-
Assessment: 49-year-old F with no known PMHx who presented to OSH at [facility] on 10/13/2024 with several days of SOB, nausea, fatigue and body aches. HPI obtained from medical records as pt is intubated. She had chest pain this past Thursday, but thought
it was gas and it subsided. Her SOB and nausea persisted though. She came to the ER and EKG showed anterolateral ST elevations with Q-waves, with ST elevations in inferior leads with NE-depressions. Ct chest ruled out esophageal tear. Labs
showed an elevated troponin to 2400, WBC 33, platelet 700 and chemistry showed evidence of DKA with acidosis (pH 7 on VBG). She's been having polyuria and polydipsia x 2 weeks as well. She denies a personal or family Hx of diabetes. Of note, she
vomited blood clots on day of ER arrival as well. Stat echo in the ER at [facility] showed depressed LVEF around 35% with severely hypokinetic anteroseptal, anterior, apical segments. Contrast echo showed a mural apical thrombus. She was Dx with a late
presentation anterior [place], and was TRX here to [place] for cardiac intervention. Prior to TRX she was given 325mg ASA and started on heparin gtt. Given a NS bolus and insulin gtt also started.
Chronic conditions CUPOLA CHARGER: Non-contributory
Impression:
#ACS with late presentation anterolateral STEMI
#DKA without history of diabetes
#Pseudohyponatremia due to DKA with hyperglycemia
#Severe metabolic acidosis due to above
#Acute respiratory failure with hypercapnia (undercompensation in the setting of metabolic acidosis)
#Apical LV mural thrombus (reported from outside hospital echo)
#Leukocytosis
#Anemia with reported bloody emesis at [facility]
#Thrombocytosis (likely reactive) - now resolved
#Transaminitis
#Elevated troponin due to ACS as above in the setting of HANNA � peaked at 38.6 on 10/13/2024
#ICM with LVEF: 30-35% without current evidence of left-sided heart failure (PCWP: 12mmHg per RHC today)
Plan:
- Patient went to [facility] on 10/13 and I spoke with the filament shaper, Dr. Stevenson, and recommended to intubate the patient prior to performing left heart catheterization given the patient's extremely low pH with risk of worsening respiratory acidosis
if anesthesia is given, which would put her at risk of cardiac arrest
- Patient returned from the [facility] to the ICU on 10/13; there was 100% thrombotic occlusion in the mid LAD we then organized nonocclusive thrombus in the proximal LAD with 95% stenosis. No significant in flow despite multiple passes of
mechanical aspiration thrombectomy balloon angioplasty and vasodilators. The wedge pressure was 25 with an mPAP of 25 mmHg. Also normal left-sided filling pressures with normal cardiac output/index of 4.7/2.9, respectively. PVR was 2.72 Wood
units. Her PVR was 2.72, CO/CI: 4.78/2.94 (Franny), RA: 11/9, RV: 41/8
- Hold heparin drip given her acute drop in Hb; resume once able to given her LV thrombus (defer antiplatelet medications + statin to cardiology); pending EGD today
- No benefit to try to reopen her LAD lesion - I discussed this case today with Dr. Weber
- Lightly sedate with goal RASS 0 to -2
- Continue to trend blood gas now that she is intubated to assure pH is improving
- Continue with mechanical ventilation with daily SAT/SBT if clinically indicated
- Titrate FiO2 + PEEP to maintain SpO2 >94%
- Maintain plateau pressure <30
- Frequent oropharyngeal + deep ETT suctioning as needed
- Trend her leukocytosis
- No signs of pneumonia on imaging and her urinalysis is clear with no signs of UTI
- Continue to observe off antibiotics
-Follow-up blood culture + sputum culture (collected 10/14/2024)
- Continue insulin gtt
- Continue D5-1/2NS with 20mEq KCl at 250cc/hr
- Trend electrolytes with q4hr BMP, Mg and PO4; trend VBG q12hr
- Avoid hypokalemia and avoid hypoglycemia
- Check q1hr FS while on insulin gtt
- A1C: 13.3 on 10/13/2024
- Goal LDL<70 (currently it is 70 oin 10/14/2024)
- Maintain MAP>65
- Replete electrolytes with K>4, Mg>2
- Maintain euglycemia with goal BG 140-180
- Trend H/H and transfuse if needed to keep Hb>8g/dL; keep plt>50k
- prn nebulized bronchodilators - not currently bronchospastic
- Stress ulcer ppx: On PPI IV BID currently given reports of UGIB at [facility]
- GI consulted and EGD performed today (10/14/2024) showing LA grade C esophagitis with esophageal ulcers with no bleeding or stigmata of recent bleeding normal stomach, and normal examined duodenum; recommend to remove OGT. We will replace with
Dobbhoff tube for tube feeds and PO medications
- Maintain large bore IV x2
- DVT ppx: heparin gtt currently held but will resume later today if H&H remained stable given her LV thrombus
Critical care statement: A total of 38 minutes of critical care time was provided for this patient today. This includes management of unstable vital signs, evaluation of the patient at bedside, reviewing the patient's pertinent medical records
including radiographs, microbiology, laboratory evaluations, and discussion with primary team, consultants, pharmacy, nutrition, physical therapy, case management, charge nurse, critical care nursing, and respiratory therapy.
Data:
Outside Hospital TTE 10/13/2024:
LVEF: 30-35%; Multiple segmental abnormalities exist. Mild eccentric LVH; moderately decreased LV systolic function; grade II diastolic dysfunction, pseudonormal pattern; Laminated mural thrombus of the LV apex suggested on contrast images; normal
RV size and function; Normal LA by volume index and normal RA by area; Mild MR; RAP is 3mmHg with estimated RVSP: 17mmHg. No prior studies available for comparison.
CXR 10/13/2024:
1. Endotracheal tube terminating 1.2 cm proximal to the ramin.
2. Nasogastric tube terminating in the stomach.
3. No radiographic evidence for acute pulmonary edema or pleural effusion.
Subjective Dataa
Subjective Data
Date of Service:
Date of Service: October 14, 2024
Chief Complaint: Coper Hand Follow Up
Subjective:
Patient was seen and evaluated today at bedside. Remains intubated on AC/CMV: 20/400/40/5 with PIP: 22 cmH2O, VTe 332mL and breathing at 20 breaths/minute.. No hematemesis seen this AM. Having pale red stool. She has an OGT. Being planned for
EGD today. Currently sedated on propofol at 10mcg/kg/min, fentanyl at 50mcg/hr, also on insulin drip at 4 units/h and PPI drip.
Review of Systems
General: Unobtainable - Sedation
Objective Data
Data Reviewed
Vital Signs / I&O / Oxygen:
Vital Signs
Temp Pulse Resp BP Pulse Ox
99.5 F 96 20 121/68 99
10/14/24 08:43 10/14/24 09:00 10/14/24 09:00 10/14/24 09:00 10/14/24 09:00
Intake and Output
10/13/24 10/14/24 10/15/24
06:59 06:59 06:59
Intake Total 4273.05 / 4442.95 793.5 / 793.5
Output Total 1450 / 1450
Balance 2823.05 / 2992.95 793.5 / 793.5
SaO2 [A/C] 100
SaO2 99
Physical Exam
General: Respiratory Distress (negative), Comfortable, Chills (negative) and Sweats (negative)
HEENT: Normocephalic and Anicteric
Cardiovascular: S1-S2 and Peripheral Edema (negative)
Respiratory: Wheeze (negative), Crackles (negative), Rhonchi (negative), Non-Labored Respirations, Stridor (negative) and ET Tube (Mechanical breath sounds heard bilaterally)
GI: Soft, Non Distended, Non Tender and Normal Bowel Sounds
Neurology: Tremors (negative) and Other (Sedated)
Skin: Warm, Dry, Cyanosis (negative) and Jaundice (negative)
Labs/Micro/Reports
Lab Data
10/14/24 04:39
10/14/24 08:23
Laboratory Results
10/13/24 10/13/24 10/13/24
15:55 17:53 19:37
PT 18.3 H
INR 1.50
APTT > 200 H*
pH 7.01 L* 7.20 L
pCO2 21 L 16 L*
pO2 179 H 209 H
HCO3 5.3 L* 6.3 L*
O2 Delivery Level
10/14/24 10/14/24 10/14/24
00:17 06:00 08:23
PT
INR
APTT 29.8 64.5 H
pH Cancelled
pCO2 Cancelled
pO2 Cancelled
HCO3 Cancelled
O2 Delivery Level Cancelled
[2024-10-14] MEDS: SUBLIMAZE 50 MCG IV ×3 (08:26→14:53)
[2024-10-14] MEDS: PROTONIX IV IV (08:26)
[2024-10-14] MEDS: MIRALAX TUBE (08:26)
[2024-10-14 08:28] LABS: Folate 6.5 ng/ml (2.76-20); Vitamin B12 856 pg/ml (239-931)
--- NOTE | 2024-10-14 08:31 | CON.GI ---
Addendum entered and electronically signed by David Huitron DO 10/14/24 14:34:
I saw and examined the patient.
The HEEL SCORER's note was reviewed and I agree with the note.
Comment: Agree with the detailed note as below. Given concern for reported hematemesis (reported blood clots) prior to arrival, will proceed with a diagnostic EGD for further evaluation. However, endoscopic therapy will be limited given her recent
anticoagulation for her LV thrombus. Suspect erosive esophagitis secondary to DKA and/or karla-mishra tear as likely source of her UGIB. No concern for variceal GIB. Has risk factors for PUD as well given previous reported NSAIDs. Doubt brisk UGIB
as without any melena or obvious blood from OG tubing since her admission. Has responded appropriately to recent blood transfusions as well. Given the need for ongoing anticoagulation and previous concern for hematemesis, will proceed with a
diagnostic EGD for further evaluation in ICU while patient is intubated/sedated. Again, endoscopic therapeutics will be limited but could potentially hemoclip and/or use hemospray if therapy were to be performed. Continue IV PPI gtt x 72 hrs. See
same day EGD report for additional findings and recommendations.
Addendum entered and electronically signed by MALIHA Khanna 10/14/24 09:27:
Discussed with Cardiology, Pulm Crit Care. Ok to hold Hep gtt for 4 hrs prior to EGD. They will place orders to hold.
Original Note:
Consultation
-
Date/Time Consultation Requested: 10/13/24 8961
Date/Time Consultation Performed: 10/14/24 3750
Requesting Provider: MALIHA Noonan
Performing Provider: Dr. Huitron/MALIHA Browne
Reason for Consultation: UGIB
Medical History
Chief Complaint / HPI
Chief Complaint: CP/TRF from [place] for ACS
History of Present Illness:
49-year-old female (currently intubated however, she was awake and able to communicate with me for some time. Also able to speak to her Jaiden [phone] who was able to provide past medical history and information gathered from the chart)
with no significant past medical history initially presented to [facility] emergency room for evaluation of flulike symptoms since Thursday. She was using Aleve 3 to 4 pills at home. She was having aches. She was drinking some red Gatorade
apparently. She did speak to her and called him because she started having vomiting. Initially she thought it was a Gatorade however then started vomiting red blood with some clots. She then proceeded to the emergency room at [place].
She was having chest discomfort. She was found to be in acute coronary syndrome and was transferred to [facility] for further management requiring cardiac catheterization and DKA management. The patient was given aspirin 325 mg and
started on heparin drip. She had 100% thrombotic occlusion of the mid LAD and nonocclusive thrombus in the proximal LAD with 95% stenosis. No significant improvement in flow despite multiple passes mechanical aspiration thrombectomy, balloon
angioplasty and vasodilators. We are asked to evaluate for upper GI bleed. Currently OG tube is in place with coffee-ground emesis which is approximately 50 to 60 cc. Hemoglobin is currently 6.1 down from 9.1. She is also having vaginal
bleeding. She remains on a heparin drip. She is receiving her first unit of packed red blood cells. She continues on a bicarb and insulin drip. She has had no rectal bleeding or melena from below. No bowel movement since arrival. I discussed
with pulmonary critical care as well as cardiology. Patient will need to remain on anticoagulation for at least 3 months. Discussed with patient was not having any prior abdominal discomfort. No history of upper or lower GI complaints
prior to this event. She does not smoke. She does not drink any alcohol.
Past Medical History
Past Medical History: None
Past Surgical History: (X 2)
Social History
Tobacco: Non-Smoker
Alcohol: None
Drug: None
Personal:
Living: With Family
Family History
Family History: Other (No family history gastrointestinal malignancy or IBD)
Allergies / Home Medications
Allergy/AdvReac Type Severity Reaction Status Date / Time
No Known Allergies Allergy Unverified 10/13/24 15:08
�Medication �Instructions �Recorded
cyclobenzaprine 10 mg tablet 10 mg PO HS 10/13/24
ibuprofen 600 mg tablet 600 mg PO TID PRN pain 10/13/24
norgestimate 0.18 mg/0.215 mg/0.25 1 tab PO DAILY 10/13/24
mg-ethinyl estradiol 25 mcg tablet
Review of Systems
-
Unable to obtain full review of systems at this time due to: Patient Intubation
Vital Signs
Temp Pulse Resp BP Pulse Ox
99.4 F 95 20 122/79 99
10/14/24 07:55 10/14/24 06:23 10/14/24 06:23 10/14/24 06:23 10/14/24 08:22
Physical Exam
Exam
General: Intubated
HEENT: Anicteric and Other (OG tube in place with approximately 60 cc of coffee-ground material removed)
Respiratory: Clear (Anterior)
Cardiac: Regular Rhythm (Tachycardic)
GI: Soft, Non Tender, Non Distended and Normal Bowel Sounds
Musculoskeletal: No Edema
Skin: Warm and Dry
Neuro: Sedated (There was a period of time that patient came up from a sedation vacation was able to communicate)
Results
WBC 22.3 10^3/uL (4.8-10.8) H 10/14/24 03:34
Hgb 6.1 g/dL (12.0-16.0) L* 10/14/24 04:39
Hct 20.4 % (37.0-47.0) L* 10/14/24 04:39
MCV 62.6 fL (81.0-99.0) L 10/14/24 03:34
Plt Count 309 10^3/uL (130-400) D 10/14/24 03:34
PT 18.3 Sec (11.4-14.6) H 10/13/24 17:53
INR 1.50 10/13/24 17:53
APTT 29.8 Sec (23.4-35.0) 10/14/24 00:17
Sodium 133 mmol/L (135-145) L 10/14/24 03:34
Potassium Cancelled 10/14/24 06:00
Chloride 111 mmol/L (98-107) H 10/14/24 03:34
Carbon Dioxide 11 mmol/L (22-30) L* 10/14/24 03:34
BUN 22 mg/dl (7-17) H 10/14/24 03:34
Creatinine 0.8 mg/dL (0.6-1.0) 10/14/24 03:34
Calcium 7.8 mg/dl (8.4-10.2) L 10/14/24 03:34
Total Bilirubin 0.4 mg/dl (0.2-1.3) 10/13/24 14:10
AST 437 U/L (14-36) H 10/13/24 14:10
ALT 54 U/L (0-35) H 10/13/24 14:10
Alkaline Phosphatase 160 U/L (38-126) H 10/13/24 14:10
Diagnostic Image Results:
Chest x-ray:
1. Endotracheal tube terminating 1.2 cm proximal to the ramin.
2. Nasogastric tube terminating in the stomach.
3. No radiographic evidence for acute pulmonary edema or pleural effusion.
Prior GI Procedures:
EGD: Never
Colonoscopy: Never
Assessment / Plan
-
She continues on a bicarb and insulin drip. 49-year-old female with no significant past medical history presented to [facility] with vomiting bright red blood, chest pain. Found to be in acute coronary syndrome. Transferred to [place]
hospital where she had cardiac catheterization The patient was given aspirin 325 mg and started on heparin drip. She had 100% thrombotic occlusion of the mid LAD and nonocclusive thrombus in the proximal LAD with 95% stenosis. No significant
improvement in flow despite multiple passes mechanical aspiration thrombectomy, balloon angioplasty and vasodilators. We are asked to evaluate for upper GI bleed. Currently OG tube is in place with coffee-ground emesis which is approximately 50 to
60 cc. Hemoglobin is currently 6.1 down from 9.1. She will receive her second unit of packed red blood cells at this time. She will need to remain on anticoagulation for her thrombus for at least 3 months after discussion with cardiology. After
discussion with cardiology, pulmonary critical care and with will proceed with diagnostic endoscopy on heparin in ICU at bedside.
Impression:
Hematemesis in the setting of DKA and anterior lateral ST [place]
Left ventricular thrombus requiring anticoagulation
Transaminitis-> likely secondary to shock
Microcytic anemia
Plan:
-Diagnostic EGD at bedside in ICU
-Continue pantoprazole drip
-Transfuse second unit of packed red blood cells
-Trend CBC, LFTs
-Will need further workup for microcytic anemia. Will require colonoscopy after off anticoagulation.
-Further recommendations to be forthcoming
-
-
Thank you for consultation and allowing me to participate in the patient's care. Please call the combination machine tool setter GI physician during the after hours with any questions or concerns.
[2024-10-14 08:32] LABS: Glucose - Point of Care 233 mg/dl (70-99)
[2024-10-14 08:48] LABS: Glucose - Point of Care 335 mg/dl (70-99)
[2024-10-14 08:48] LABS: APTT 64.5 Sec (23.4-35.0)
[2024-10-14 09:06] LABS: Blood Urea Nitrogen 17 mg/dl (7-17); Calcium 7.4 mg/dl (8.4-10.2); Carbon Dioxide 11 mmol/L (22-30); Chloride 109 mmol/L (98-107); Estimated Creatinine Clearance 76 ml/min; Glucose 328 mg/dl (70-99); Magnesium 2.1 mg/dl (1.6-2.3); Phosphorus 1.8 mg/dl (2.5-4.5); Potassium 3.6 mmol/L (3.5-5.1); Sodium 133 mmol/L (135-145); eGFR > 60.00
[2024-10-14 09:45] LABS: Glycohemoglobin (HgbA1c) 13.3 % (4.0-5.6)
[2024-10-14 09:48] LABS: Glucose - Point of Care 300 mg/dl (70-99)
[2024-10-14] MEDS: PROTONIX IV 80 MG IV (09:58)
[2024-10-14] MEDS: NSS (PRESERVATIVE FREE) 10 ML IV (09:58)
--- NOTE | 2024-10-14 10:07 | W.PN.CARDCBS ---
Today's Communication / Plan
-
Start ASA/statin/BB/ARB for STEMI/ICM
Heparin gtt for LV thrombus, ok to hold for EGD
Impression / Plan
-
Nursing Consultant: None, seen initially at [facility]
Impression:
Late presentation anterior [place]
Ischemic cardiomopathy LVEF 30-35%
Apical mural thrombus of LV
Acute DKA, newly diagnosed diabetes
Lactic acidosis
Acute on chronic microcytic anemia
HANNA
Acute Transaminitis
Stat echo performed in the emergency department showed moderately depressed LV function with EF around 35%. Anteroseptum, anterior, apical segments appear severely hypokinetic. Contrast echo views show mural apical LV thrombus.
10/13/24: CTA chest
1. No definite CT evidence for esophageal rupture. No evidence of pneumomediastinum.
2. 1.4 cm ovoid structure interposed between the distal esophagus and aorta. This likely represents a paraesophageal lymph node. A small extraluminal collection from the distal esophagus cannot be entirely excluded. If clinical symptoms persist
consider barium swallow /esophagram, as a follow-up
3. Fatty infiltration of the liver
4. Cholelithiasis
Plan:
-Transferred from [facility] as late presentation anterior STEMI, LVEF 30-35% with LAD territory wall motion abnormality and LV thrombus
-R/LHC 10/13/24 with 95% pLAD and 100% mLAD and attempts to restore coronary flow were unsuccessful
-Plan for medical management of CAD:
Start [id number] daily, hold on additional anti-platelet agent given transfusion dependent anemia
Start high intensity statin
Add BB and monitor for signs of acute HF
-Ischemic cardiomyopathy
Warm and well perfusion on exam, appears euvolemic
PCWP was 12 mmHg at time of R/LHC
Will likely require IV lasix in the event she receives additional blood products
Start BB as above
Start Low dose ARB with consideration to transition to Entresto
-LV apical thrombus:
Continue heparin gtt for now - ok to hold for EGD
Eventual transition to OAC when stable
-Transfusion depend anemia
Appreciate GI input, tentative plan for EGD today
Care coordinated with supervisor metalizing, interventionalist, GI and nursing
CC: 52 minutes
Progress Note - Nursing Consultant
Subjective
Date of Service: October 14, 2024
NAOE. Remains intubated and sedated in the MICU. Troponin is flat, ECG without significant changes.
Objective
Labs:
10/14/24 04:39
10/14/24 08:23
Labs
Hgb 6.1 g/dL (12.0-16.0) L* 10/14/24 04:39
Hct 20.4 % (37.0-47.0) L* 10/14/24 04:39
Plt Count 309 10^3/uL (130-400) D 10/14/24 03:34
PT 18.3 Sec (11.4-14.6) H 10/13/24 17:53
INR 1.50 10/13/24 17:53
APTT 64.5 Sec (23.4-35.0) H 10/14/24 08:23
Sodium 133 mmol/L (135-145) L 10/14/24 08:23
Potassium 3.6 mmol/L (3.5-5.1) 10/14/24 08:23
BUN 17 mg/dl (7-17) 10/14/24 08:23
Creatinine 0.8 mg/dL (0.6-1.0) 10/14/24 08:23
Glucose 328 mg/dl (70-99) H 10/14/24 08:23
Troponins
10/13/24 10/14/24
14:10 06:36
Troponin I 38.600 H* 37.800 H*
Vital Signs and I&O:
Vital Signs
Temp Pulse Resp BP Pulse Ox
100.3 F 99 20 123/76 100
10/14/24 09:58 10/14/24 09:58 10/14/24 09:58 10/14/24 09:58 10/14/24 09:58
Vital Signs
Temp Pulse Resp BP Pulse Ox
100.3 F 99 20 123/76 100
10/14/24 09:58 10/14/24 09:58 10/14/24 09:58 10/14/24 09:58 10/14/24 09:58
Intake & Output
10/12/24 10/13/24 10/14/24 10/15/24
06:59 06:59 06:59 06:59
Intake Total 4273.05 / 4442.95 793.5 / 793.5
Output Total 1450 / 1450
Balance 2823.05 / 2992.95 793.5 / 793.5
Physical Exam
Physical Exam
Gen: NAD
HEENT: NC/AT, sclera anicteric
Neck: No JVD
CV: RRR, NL s1/s2, no M/R/G
Lungs: Mechanically ventilated, clear lung cervantes
Abd: S/ND
Ext: No LE edema
Skin: Warm, dry.
Neuro: Sedated
[2024-10-14 10:45] LABS: Glucose - Point of Care 302 mg/dl (70-99)
[2024-10-14] MEDS: SUBLIMAZE 100 IV ×2 (10:46→18:03)
--- NOTE | 2024-10-14 11:49 | PTCARENOTE ---
Clarified with Automation And Controls Instructor to hold Heparin drip for EGD. Heparin drip now on hold as ordered.
--- NOTE | 2024-10-14 11:59 | CM ---
CM following re: discharge planning.
Reviewed pt's chart, met with pt and spoke to pt's Jaiden.
Pt is a 49 year old female, admitted with primary dx of ACS with late presentation anterolateral STEMI
Per Rounds meeting, pt remains intubated, continue supportive care.
Pt lives with and 3 children in a 2SH, 2 steps to enter. Pt's described the pt as independent in all areas [employer].
PCP: Elana Valadez
D/C plan: uncertain at this time and will depend on pt's progress.
CM will follow with discharge plan updates as hospitalization progresses
--- NOTE | 2024-10-14 11:59 | W.PN.HOSP.TC ---
Today's Communication/Plan
-
see plan
Assessment / Plan
Assessment / Plan
Gen: NAD, NCAT
CV: RRR, +S1/S2, no m/r/g.
Resp: CTAB, no rales, wheezes, or rhonchi.
Abd: +BS, soft, NT, ND
Skin: No rashes.
Neuro: sedated
Psych: calm
[facility] 10/13/24:
1. Late presenting anterolateral ST elevation GA with 100% thrombotic occlusion in the mid LAD with PAUL 0 flow. Proximal LAD has a large burden of what appears to be organized nonocclusive thrombus, with 95% stenosis. No significant improvement
in flow despite multiple passes of mechanical aspiration thrombectomy, balloon angioplasty and vasodilators.
2. Normal right and left-sided filling pressures with normal cardiac output.
Acute anterolateral STEMI:
-transfer from [facility]
-[facility] 10/13/24 as above, 95% prox LAD occlusion, 100% mid LAD occlusion, unable to restore flow
-cont heparin gtt
-cont ASA/statin/BB
-trop 38.6, trend
-cards following
-currently intubated/sedated with propofol
ICM/Acute HFrEF:
-Echo: LVEF 30-35% with LAD territory wall motion abnormality and LV thrombus
-cont BB/ARB
-may need lasix after pRBCs
Acute DKA:
-cont insulin gtt/IVFs
-trend AG until it closes
Acute blood loss anemia:
-GI following
-cont PPI gtt
-transfuse 2U pRBCs
-trend Hb
-bedside EGD
HANNA:
-resolved with IVFs
FULL/Heparin gtt
Total critical care time spent = 35 min
Anticipated Discharge: > 48 hours
Subjective/Interval History
-
Date of Service: October 14, 2024
Intubated/sedated.
Objective Data
-
Labs:
Laboratory Results
10/13/24 10/14/24 10/14/24
15:55 00:17 02:00
WBC
Hgb
Hct
Plt Count
APTT 29.8
HCO3 5.3 L*
Sodium 132 L
Potassium 4.1 Cancelled
Chloride 110 H
Carbon Dioxide 10 L*
BUN 23 H
Creatinine 0.8
Glucose 215 H
Calcium 7.5 L
10/14/24 10/14/24 10/14/24
03:34 04:39 06:00
WBC 22.3 H
Hgb 6.9 L* D 6.1 L*
Hct 22.9 L 20.4 L*
Plt Count 309 D
APTT
HCO3 Cancelled
Sodium 133 L
Potassium 3.7 Cancelled
Chloride 111 H
Carbon Dioxide 11 L*
BUN 22 H
Creatinine 0.8
Glucose 290 H
Calcium 7.8 L
10/14/24 10/14/24 10/14/24
08:23 12:30 16:30
WBC Pending
Hgb Pending
Hct Pending
Plt Count Pending
APTT 64.5 H Pending
HCO3
Sodium 133 L Pending
Potassium 3.6 Pending
Chloride 109 H Pending
Carbon Dioxide 11 L* Pending
BUN 17 Pending
Creatinine 0.8 Pending
Glucose 328 H Pending
Calcium 7.4 L Pending
10/14/24
18:30
WBC
Hgb
Hct
Plt Count
APTT
HCO3
Sodium Pending
Potassium Pending
Chloride Pending
Carbon Dioxide Pending
BUN Pending
Creatinine Pending
Glucose Pending
Calcium Pending
Vital Signs:
Vital Signs
Temp Pulse Resp BP Pulse Ox
100.3 F 95 20 123/76 100
10/14/24 10:00 10/14/24 10:00 10/14/24 09:58 10/14/24 10:00 10/14/24 11:12
I&O
10/13/24 10/14/24 10/15/24
06:59 06:59 06:59
Intake Total 4273.05 / 4442.95 986.1 / 986.1
Output Total 1450 / 1450
Balance 2823.05 / 2992.95 986.1 / 986.1
[2024-10-14] MEDS: PROTONIX 100 IV ×2 (12:10→18:24)
[2024-10-14] MEDS: NEUTRA-PHOS POWDER PACKET 500 MG PO (12:13)
[2024-10-14 12:37] LABS: COVID-19 Antigen Negative (Negative)
[2024-10-14 12:47] LABS: Glucose - Point of Care 250 mg/dl (70-99)
--- NOTE | 2024-10-14 12:52 | CARDSERVDEF ---
Echocardiogram with Definity completed after protocol screening completed. Allergies verified.
Patent IV site: left accessory 20 g PC
IV site flushed with 0.9% NaCl pre and post administration.
Diluted bolus method utilized to enhance visualization of ventricular short.
Total volume given: ___3_ mL
Patient tolerated all procedures well without complications.
[2024-10-14 13:10] LABS: Hematocrit 31.1 % (37.0-47.0); Hemoglobin 9.7 g/dL (12.0-16.0); Mean Corp Hgb Conc. 31.2 g/dL (33.0-37.0); Mean Corpuscular Volume 67.5 fL (81.0-99.0); Mean Platelet Volume 9.3 fL (7.4-10.4); Platelet Count 259 10^3/uL (130-400); Red Blood Cell Count 4.61 10^6/uL (4.20-5.40); White Blood Cell Count 19.8 10^3/uL (4.8-10.8)
[2024-10-14 13:17] LABS: Lactic Acid 1.1 mmol/L (0.7-2.0)
[2024-10-14 13:20] LABS: Venous Blood Gas HCO3 14.9 mmol/L (22-27); Venous Blood Gas O2 Sat % 99.1 %; Venous Blood Gas pCO2 29 mmHg (35-48); Venous Blood Gas pH 7.32 (7.32-7.43); Venous Blood Gas pO2 98 mmHg (30-50)
[2024-10-14 13:48] LABS: Blood Urea Nitrogen 15 mg/dl (7-17); Calcium 7.9 mg/dl (8.4-10.2); Carbon Dioxide 14 mmol/L (22-30); Chloride 110 mmol/L (98-107); Estimated Creatinine Clearance 76 ml/min; Glucose 270 mg/dl (70-99); Magnesium 2.2 mg/dl (1.6-2.3); Phosphorus 1.4 mg/dl (2.5-4.5); Potassium 3.4 mmol/L (3.5-5.1); Sodium 131 mmol/L (135-145); eGFR > 60.00
[2024-10-14 13:54] LABS: B-Hydroxybutyrate 0.32 mmol/L (0.02-0.27)
[2024-10-14] MEDS: LOW STRENGTH ASPIRIN 81 MG TUBE (14:15)
[2024-10-14 14:24] LABS: Glucose - Point of Care 294 mg/dl (70-99)
--- NOTE | 2024-10-14 14:30 | PTCARENOTE ---
GI laborer wrecking and salvaging's setting up for bedside EGD. Report given.
[2024-10-14] MEDS: NSS 500 VEN SHEATH (15:00)
[2024-10-14] MEDS: SUBLIMAZE 100 MCG IV (15:14)
[2024-10-14] MEDS: VERSED 4 MG IV (15:14)
--- NOTE | 2024-10-14 15:28 | PTCARENOTE ---
Dr. Nunez notified via TT that her OGT was removed for EGD. [place] kassiep no longer required from Dr. Arriaza's standpoint. Will insert DHT as ordered for medication administration and feedings when able.
[2024-10-14 15:41] LABS: Glucose - Point of Care 281 mg/dl (70-99)
--- NOTE | 2024-10-14 15:44 | PTCARENOTE ---
Dr. Arriaza removed oral [place] sump tube. He no longer needs it to wall suction. Dr. Nunez notified. Will place [facility] for medication administration and feedings.
--- NOTE | 2024-10-14 16:12 | PTCARENOTE ---
Pt with new pleural rub throughout on posteriorly. Also aware ASA was administered prior to EGD.
[2024-10-14 16:45] LABS: Glucose - Point of Care 280 mg/dl (70-99)
[2024-10-14 17:51] LABS: Glucose - Point of Care 277 mg/dl (70-99)
--- NOTE | 2024-10-14 18:00 | PTCARENOTE ---
Right TL PICC ok to use. All IV drips now infusing via PICC with new bags and tubing. Right #20g intima removed.
[2024-10-14] MEDS: DIPRIVAN 100 IV (18:10)
[2024-10-14] MEDS: CRESTOR 20 MG TUBE (18:16)
[2024-10-14] MEDS: POTASSIUM PHOSPHATE 259.0909 MEQ IV (18:24)
[2024-10-14 18:44] LABS: Glucose - Point of Care 221 mg/dl (70-99)
[2024-10-14 19:45] LABS: Glucose - Point of Care 239 mg/dl (70-99)
[2024-10-14] MEDS: LOPRESSOR 12.5 MG TUBE (19:48)
[2024-10-14] MEDS: DIOVAN 20 MG TUBE (19:48)
[2024-10-14 20:05] LABS: Blood Urea Nitrogen 11 mg/dl (7-17); Calcium 7.5 mg/dl (8.4-10.2); Carbon Dioxide 14 mmol/L (22-30); Chloride 110 mmol/L (98-107); Estimated Creatinine Clearance 87 ml/min; Glucose 235 mg/dl (70-99); Magnesium 2.2 mg/dl (1.6-2.3); Phosphorus 1.9 mg/dl (2.5-4.5); Potassium 3.6 mmol/L (3.5-5.1); Sodium 132 mmol/L (135-145); eGFR > 60.00
[2024-10-14 20:43] LABS: Glucose - Point of Care 264 mg/dl (70-99)
[2024-10-14 22:39] LABS: Glucose - Point of Care 281 mg/dl (70-99)
[2024-10-14 22:39] LABS: Glucose - Point of Care 237 mg/dl (70-99)
[2024-10-14 23:41] LABS: Glucose - Point of Care 241 mg/dl (70-99)
[2024-10-14] MEDS: TYLENOL ORAL SOLUTION 650 MG PO (23:54)
[2024-10-15] VITALS (24 sets, daily range): BP systolic 99–136; BP diastolic 53–87; BMI 30.4
[2024-10-15] LABS: Hematocrit 27.6 % (37.0-47.0); Hemoglobin 8.7 g/dL (12.0-16.0)
[2024-10-15 00:15] LABS: APTT 104.3 Sec (23.4-35.0)
--- NOTE | 2024-10-15 00:44 | PTCARENOTE ---
Temp 101, QUALITY CONTROL ANALYST Saundra made aware. Tylenol elixir given. Scheduled labs sent and resulted. No change in previous assessment. Will monitor closely.
[2024-10-15 00:50] LABS: Blood Urea Nitrogen 9 mg/dl (7-17); Calcium 7.4 mg/dl (8.4-10.2); Carbon Dioxide 14 mmol/L (22-30); Chloride 112 mmol/L (98-107); Estimated Creatinine Clearance 87 ml/min; Glucose 229 mg/dl (70-99); Potassium 3.6 mmol/L (3.5-5.1); Sodium 133 mmol/L (135-145); eGFR > 60.00
[2024-10-15 01:39] LABS: Glucose - Point of Care 330 mg/dl (70-99)
[2024-10-15 02:53] LABS: Glucose - Point of Care 249 mg/dl (70-99)
[2024-10-15 03:41] LABS: Glucose - Point of Care 223 mg/dl (70-99)
[2024-10-15] MEDS: PROTONIX 100 IV ×3 (03:41→21:41)
[2024-10-15] MEDS: DIPRIVAN 100 IV ×2 (03:42→15:44)
--- NOTE | 2024-10-15 04:00 | PTCARENOTE ---
No change in previous assessment. Pt remains intubated/sedated. AM labs sent and resulted. Will monitor.
[2024-10-15 04:45] LABS: Glucose - Point of Care 212 mg/dl (70-99)
[2024-10-15 05:38] LABS: APTT 118.7 Sec (23.4-35.0)
[2024-10-15 05:40] LABS: Hematocrit 28.8 % (37.0-47.0); Hemoglobin 8.9 g/dL (12.0-16.0); Mean Corp Hgb Conc. 30.9 g/dL (33.0-37.0); Mean Corpuscular Hgb 21.5 pg (27.0-31.0); Mean Corpuscular Volume 69.6 fL (81.0-99.0); Mean Platelet Volume 10.2 fL (7.4-10.4); Platelet Count 248 10^3/uL (130-400); Red Blood Cell Count 4.14 10^6/uL (4.20-5.40); Red Cell Dist. Width 23.9 % (11.5-14.5); White Blood Cell Count 15.3 10^3/uL (4.8-10.8)
[2024-10-15 05:53] LABS: ALT (SGPT) 29 U/L (0-35); AST (SGOT) 133 U/L (14-36); Albumin 2.5 g/dl (3.5-5.0); Alkaline Phosphatase 104 U/L (38-126); Direct Bilirubin 0.1 mg/dl (0.0-0.4); Phosphorus 1.9 mg/dl (2.5-4.5); Total Bilirubin 0.5 mg/dl (0.2-1.3); Total Protein 5.3 g/dl (6.3-8.2)
[2024-10-15 05:54] LABS: Glucose - Point of Care 252 mg/dl (70-99)
[2024-10-15 05:55] LABS: Blood Urea Nitrogen 8 mg/dl (7-17); Calcium 7.1 mg/dl (8.4-10.2); Carbon Dioxide 13 mmol/L (22-30); Chloride 114 mmol/L (98-107); Estimated Creatinine Clearance 87 ml/min; Glucose 219 mg/dl (70-99); Potassium 3.3 mmol/L (3.5-5.1); Sodium 135 mmol/L (135-145); eGFR > 60.00
--- NOTE | 2024-10-15 06:37 | W.PN.GI.CBS2 ---
Today's Communication / Plan
-
S/p recent EGD 10/14 with LA Grade C esophagitis and few shallow, small, well-healed esophageal ulcers (FC III). No signs to suggest recurrent GI bleeding and stable H/h while on a/c. Continue IV PPI gtt x 72 hrs. Monitor serial Hgb and transfuse for
goal Hgb > 8.0. No plans for repeat EGD or colonoscopy at this time. See rest of care as outlined below. GI will sign-off, please recontact with any questions or concerns.
Assessment / Plan
-
Ms Osborn is a 49 y.o female with was transferred from an OSH ([facility]) with an anterior STEMI, LVEF 30-35% along with LV thrombus. Eventual R/LHC on 10/13/24 with 5% pLAD and 100% mLAD and attempts to restore coronary flow were unsuccessful.
Underwent an EGD given her anemia and previous concern for hematemesis at her OSH. She was reportedly taking NSAIDs as well but was without any melena or maroon colored stools during her admission at . Although, had a scant amount of coffee ground
emesis within the OG tubing. Suspicious for esophagitis given her DKA and/or possible PUD but her presentation was not concern for a brisk UGIB and no other concern for portal-hypertensive mediated bleeding. She received a total of 2 uPRBCs for Hgb
6s with over-correction and fortunately her Hgb have remained stable while in the ICU.
#LA Grade C Esophagitis
#Well-healed, small, shallow linear Esophageal Ulcers (FC III)
#Acute Blood Loss Anemia #Microcytic Anemia
#STEMI #LV Apical Thrombus (requiring a/c)
#Ischemic Cardiomyopathy
S/p EGD on 10/14/24 with LA Grade C esophagitis in the mid/distal esophagus along with few, shallow linear clean-based esophageal ulcers in the distal esophagus; otherwise, no other bleeding lesions or old/fresh blood throughout the examined upper GI
tract with grossly unremarkable stomach and duodenum.
No signs to suggest recurrent GI bleeding along with stable H/h.
Recommendations:
- Okay to start CLD once extubated. Favor continuing CLD for 24 hrs, then may ADAT
- Trend Hgb with CBC q 12 hrs, transfuse for goal Hgb > 8.0
- Anemia w/u: folate 6.5, B12 wnl (856), iron low < 20. Ordered TIBC to calculate iron sat and ferritin
- IV PPI gtt x 72 hrs, then IV PPI 40 mg BiD while inpatient
- Will need Pantoprazole 40 mg BiD x 8 weeks and then once daily indefinitely given her severe esophagitis
- No signs to suggest recurrent GI bleeding and stable H/h
- Favor continuing IV heparin gtt (versus lovenox) for at least an additional 24-48 hrs prior to transitioning to a DOAC in case of rebleeding
- No plans to pursue a repeat EGD at this time. Patient would need a repeat EGD in 8-12 weeks to ensure healing of both esophagitis and esophageal ulcers
- She would benefit from a colonoscopy as well given her microcytic anemia and suspected ANGELES. However as without any overt bloody stools and overall clinical condition would defer this at this time. Again, would defer this to outpatient setting and
could be performed at the same time of her EGD
- Strict avoidance of all NSAIDs
- Monitor fever curve, defer to primary team
- Rest of ICU care as per primary medical / ICU teams
Discussed with primary medicine teams. GI will sign-off. Please recontact with any questions or concerns.
Subjective
Subjective
Date of Service: October 15, 2024
- S/p EGD on 10/14/24 with LA Grade C esophagitis in the mid/distal esophagus along with few, shallow linear clean-based esophageal ulcers in the distal esophagus; otherwise, no other bleeding lesions or old/fresh blood throughout the examined upper
GI tract with grossly unremarkable stomach and duodenum
- Hgb stable 6s s/p 2 uPRBCs (w/ over-correction) with Hgb 9.7 -> 8.7 -> 8.9
- No signs of recurrent GI bleeding
- Febrile of 101 overnight, otherwise no evidence of tachycardia
Remains intubated/sedated. No melena or maroon colored stools in discussing with nursing at bedside.
Objective
Data Reviewed
Laboratory Data:
Laboratory Results
10/15/24 04:56
Laboratory Results
PT 18.3 Sec (11.4-14.6) H 10/13/24 17:53
INR 1.50 10/13/24 17:53
APTT 118.7 Sec (23.4-35.0) H 10/15/24 04:56
Phosphorus 1.9 mg/dl (2.5-4.5) L 10/15/24 04:56
Magnesium Cancelled 10/15/24 00:30
Total Bilirubin 0.5 mg/dl (0.2-1.3) 10/15/24 04:56
AST 133 U/L (14-36) H 10/15/24 04:56
ALT 29 U/L (0-35) 10/15/24 04:56
Alkaline Phosphatase 104 U/L (38-126) 10/15/24 04:56
Vital Signs and I&O:
Vital Signs
Temp Pulse Resp BP Pulse Ox
99.7 F 90 20 124/72 100
10/15/24 03:26 10/15/24 06:00 10/15/24 06:00 10/15/24 06:00 10/15/24 06:00
I&O
10/13/24 10/14/24 10/15/24
06:59 06:59 06:59
Intake Total 4273.05 / 4442.95 5542.3 / 5542.3
Output Total 1450 / 1450 856 / 856
Balance 2823.05 / 2992.95 4686.3 / 4686.3
Physical Exam
Physical Exam
HEENT: Anicteric and Moist mucous membranes
Cardiology: Other (RR on tele)
Pulmonary: Other (Intubated on ventilator)
GI: Soft, Distended and Non Tender
Extremities: No Edema
Neuro: Other (Sedated)
[2024-10-15 06:58] LABS: Glucose - Point of Care 223 mg/dl (70-99)
[2024-10-15 07:42] LABS: Glucose - Point of Care 209 mg/dl (70-99)
--- NOTE | 2024-10-15 08:10 | W.PN.INTV ---
Today's Communication / Plan
Recommendations
Suspected new pneumonia with worsening rhonchorous breath sounds and febrile overnight
Broad-spectrum antibiotics started
Send off new sputum culture from ETT
Continue to trend H&H while on heparin drip
EGD on 10/14/2024 showed esophageal ulcers with no evidence of acute GI bleed
Continue ASA
Cardiology on board and recs appreciated
OGT removed and replaced with Dobbhoff tube for tube feeds at PO meds
Continue mechanical ventilation with daily SAT/SBT
Continue insulin drip changed to hyperglycemia protocol since I feel that DKA has been resolved given beta-hydroxybutyrate is now WNL
Start bicarb drip
Trend [K] and serum HCO3
Patient remains critically ill - continue ICU level of care
Assessment
-
Assessment: 49-year-old F with no known PMHx who presented to OSH at [facility] on 10/13/2024 with several days of SOB, nausea, fatigue and body aches. HPI obtained from medical records as pt is intubated. She had chest pain this past Thursday, but thought
it was gas and it subsided. Her SOB and nausea persisted though. She came to the ER and EKG showed anterolateral ST elevations with Q-waves, with ST elevations in inferior leads with UT-depressions. Ct chest ruled out esophageal tear. Labs
showed an elevated troponin to 2400, WBC 33, platelet 700 and chemistry showed evidence of DKA with acidosis (pH 7 on VBG). She's been having polyuria and polydipsia x 2 weeks as well. She denies a personal or family Hx of diabetes. Of note, she
vomited blood clots on day of ER arrival as well. Stat echo in the ER at [facility] showed depressed LVEF around 35% with severely hypokinetic anteroseptal, anterior, apical segments. Contrast echo showed a mural apical thrombus. She was Dx with a late
presentation anterior [place], and was TRX here to [place] for cardiac intervention. Prior to TRX she was given 325mg ASA and started on heparin gtt. Given a NS bolus and insulin gtt also started.
Chronic conditions VISUAL STYLIST: Non-contributory
Impression:
#ACS with late presentation anterolateral STEMI
#DKA without history of diabetes
#Pseudohyponatremia due to DKA with hyperglycemia
#Severe metabolic acidosis due to above
#Acute respiratory failure with hypercapnia (undercompensation in the setting of metabolic acidosis) now on mechanical ventilation (intubated for left heart cath on 10/13/2024)
#Apical LV mural thrombus (reported from outside hospital echo)
#Leukocytosis
#Anemia with reported bloody emesis at [facility]
#Thrombocytosis (likely reactive) - resolved
#Transaminitis
#Elevated troponin due to ACS as above in the setting of HANNA � peaked at 38.6 on 10/13/2024
#ICM with LVEF: 30-35% without current evidence of left-sided heart failure (PCWP: 12mmHg per RHC today)
Plan:
- Patient went to [facility] on 10/13 and I spoke with the accountant cost, Dr. Stevenson, and recommended to intubate the patient prior to performing left heart catheterization given the patient's extremely low pH with risk of worsening respiratory acidosis
if anesthesia is given, which would put her at risk of cardiac arrest
- Patient returned from the [facility] to the ICU on 10/13: there was 100% thrombotic occlusion in the mid LAD we then organized nonocclusive thrombus in the proximal LAD with 95% stenosis. No significant in flow despite multiple passes of
mechanical aspiration thrombectomy balloon angioplasty and vasodilators. The wedge pressure was 25 with an mPAP of 25 mmHg. Also normal left-sided filling pressures with normal cardiac output/index of 4.7/2.9, respectively. PVR was 2.72 Wood
units. Her PVR was 2.72, CO/CI: 4.78/2.94 (Franny), RA: 11/9, RV: 41/8
- Heparin drip initially held due to acute anemia, she underwent EGD on 10/14/2024 showing LA grade C erosive esophagitis with few, small linear and superficial well-healed esophageal ulcers.
- Heparin drip resumed on the evening of 10/10/2024 after the EGD
- No benefit to try to reopen her LAD lesion - I discussed this case with Dr. Weber on 10/14/2024
- Lightly sedate with goal RASS 0 to -2
- Continue to trend blood gas now that she is intubated to assure pH is improving/stable
- Continue with mechanical ventilation with daily SAT/SBT if clinically indicated
- Titrate FiO2 + PEEP to maintain SpO2 >94%
- Maintain plateau pressure <30
- Frequent oropharyngeal + deep ETT suctioning as needed
- Trend her leukocytosis
- As of today (10/15/2024), she has worsening retrocardiac opacification, and she sounds rhonchorous on exam and is febrile
- Start broad-spectrum antibiotics with IV vancomycin + cefepime
- Check a new set of sputum cultures
-Follow-up blood culture + sputum culture (collected 10/14/2024)
- Continue insulin gtt but changed to hyperglycemia protocol given her beta hydroxybutyrate is now normal as of this morning (0.26)
- Start bicarb drip and trend sHCO3
- Avoid hypokalemia and avoid hypoglycemia
- Check q1hr FS while on insulin gtt
- A1C: 13.3 on 10/13/2024
- Goal LDL<70 (was 70 on 10/14/2024)
- Maintain MAP>65
- Replete electrolytes with K>4, Mg>2
- Maintain euglycemia with goal BG 140-180
- Trend H/H and transfuse if needed to keep Hb>8g/dL; keep plt>50k
- prn nebulized bronchodilators - not currently bronchospastic
- Stress ulcer ppx: On PPI IV BID currently given reports of UGIB at [facility]
- GI consulted and EGD performed on 10/14/2024 showing LA grade C esophagitis with esophageal ulcer with no bleeding or stigmata of recent bleeding normal stomach, and normal examined duodenum; recommend to remove OGT. We replaced her OGT with
Dobbhoff tube for tube feeds and PO medications
- Maintain large bore IV x2
- Heparin gtt resumed 10/14/2024 s/p EGD - continue to monitor H/H as above
- DVT ppx: heparin gtt
Critical care statement: A total of 41 minutes of critical care time was provided for this patient today. This includes management of unstable vital signs, evaluation of the patient at bedside, reviewing the patient's pertinent medical records
including radiographs, microbiology, laboratory evaluations, and discussion with primary team, consultants, pharmacy, nutrition, physical therapy, case management, charge nurse, critical care nursing, and respiratory therapy.
Data:
Outside Hospital TTE 10/13/2024:
LVEF: 30-35%; Multiple segmental abnormalities exist. Mild eccentric LVH; moderately decreased LV systolic function; grade II diastolic dysfunction, pseudonormal pattern; Laminated mural thrombus of the LV apex suggested on contrast images; normal
RV size and function; Normal LA by volume index and normal RA by area; Mild MR; RAP is 3mmHg with estimated RVSP: 17mmHg. No prior studies available for comparison.
CXR 10/13/2024:
1. Endotracheal tube terminating 1.2 cm proximal to the ramin.
2. Nasogastric tube terminating in the stomach.
3. No radiographic evidence for acute pulmonary edema or pleural effusion.
CXR 10/15/2024: Cannot exclude some left basilar opacification such as subsegmental atelectasis and/or pneumonia.
Subjective Dataa
Subjective Data
Date of Service:
Date of Service: October 15, 2024
Chief Complaint: Rotoformer Backtender Follow Up
Subjective:
Patient seen and evaluated today at bedside. Having thick ibrahim secretions from ETT. Also sounds more rhonchorous today. Currently sedated on fentanyl at 25mcg/hr and propofol at 10mcg/kg/min. Remains on insulin drip currently at 9 units/h. Also
on PPI drip. Currently intubated on AC/CMV at 20/400/40%/5 with PIP: 33 cmH2O, VTe 285cc and breathing at 24 breaths/min. Current heart rate 100, saturating 100% and end-tidal CO2: 19. She is less responsive today when sedation is lowered.
Spiked a fever overnight to 101 �F.
Review of Systems
General: Unobtainable - Sedation
Objective Data
Data Reviewed
Vital Signs / I&O / Oxygen:
Vital Signs
Temp Pulse Resp BP Pulse Ox
100 F 97 22 124/65 100
10/15/24 13:42 10/15/24 16:00 10/15/24 16:00 10/15/24 16:00 10/15/24 16:00
Intake and Output
10/14/24 10/15/24 10/16/24
06:59 06:59 06:59
Intake Total 4273.05 / 4442.95 5542.3 / 5752.1 2109.0 / 2109.0
Output Total 1450 / 1450 856 / 856 1030 / 1030
Balance 2823.05 / 2992.95 4686.3 / 4896.1 1079.0 / 1079.0
SaO2 [A/C] 100
SaO2 100
Physical Exam
General: Respiratory Distress (negative), Comfortable, Chills (negative) and Sweats (negative)
HEENT: Normocephalic, Anicteric and Other (ETT in place)
Cardiovascular: S1-S2 and Peripheral Edema (negative)
Respiratory: Wheeze (negative), Crackles (Bilateral), Rhonchi (Bilateral), Non-Labored Respirations, Stridor (negative) and ET Tube (Mechanical breath sounds heard bilaterally)
GI: Soft, Non Distended, Non Tender and Normal Bowel Sounds
Neurology: Tremors (negative) and Unresponsive (Sedated)
Skin: Warm, Dry, Cyanosis (negative) and Jaundice (negative)
Labs/Micro/Reports
Lab Data
10/15/24 08:24
Laboratory Results
10/14/24 10/15/24 10/15/24
23:50 04:56 12:30
APTT 104.3 H 118.7 H Cancelled
Microbiology
10/14/24 13:22 Endotracheal Respiratory Culture - Preliminary
10/14/24 13:22 Endotracheal Gram Stain - Preliminary
10/14/24 00:17 Blood/Venous Blood Culture - Preliminary
No Growth in 24 hours- Final report to follow
10/14/24 12:07 Nasal Swab Influenza Types A & B (DOREEN) - Final
Negative for Influenza A & B, NAAT
Negative results must be combined with clinical observations
and patient history.
Nucleic Acid Amplification test (NAAT)performed on the
[employer] platform.
--- NOTE | 2024-10-15 08:14 | W.PN.CARDCBS ---
Today's Communication / Plan
-
-Plan for medical management of CAD:
Cont ASA 81mg daily, hold on additional anti-platelet agent given transfusion dependent anemia
Cont high intensity statin, Crestor
Cont Lopressor and monitor for signs of acute HF
Cont Diovan
-Ischemic cardiomyopathy
Appears euvolemic, monitor wts closely.
PCWP was 12 mmHg at time of R/LHC
Will likely require IV lasix in the event she receives additional blood products
Cont Lopressor and Diovan and eventual consideration to transition to Entresto
-LV apical thrombus:
Continue heparin gtt for now - ok to hold for femoral line removal
Eventual transition to OAC when stable
-Transfusion depend anemia
Appreciate GI input
Received 2 units since admit
Monitor H/H
Impression / Plan
-
.
Logistics Engineer: None, seen initially at [facility]
Impression:
Late presentation anterior LA
Ischemic cardiomopathy LVEF 30-35%
Apical mural thrombus of LV
Acute DKA, newly diagnosed diabetes
Gastritis
Lactic acidosis
Acute on chronic microcytic anemia
HANNA
Acute Transaminitis
Stat echo performed in the emergency department showed moderately depressed LV function with EF around 35-40%. Anteroseptum, anterior, apical segments appear severely hypokinetic. Contrast echo views show mural apical LV thrombus. Mild TR
10/13/24: CTA chest
1. No definite CT evidence for esophageal rupture. No evidence of pneumomediastinum.
2. 1.4 cm ovoid structure interposed between the distal esophagus and aorta. This likely represents a paraesophageal lymph node. A small extraluminal collection from the distal esophagus cannot be entirely excluded. If clinical symptoms persist
consider barium swallow /esophagram, as a follow-up
3. Fatty infiltration of the liver
4. Cholelithiasis
Plan:
-Transferred from [facility] as late presentation anterior STEMI, LVEF 30-35% with LAD territory wall motion abnormality and LV thrombus
-R/LHC 10/13/24 with 95% pLAD and 100% mLAD and attempts to restore coronary flow were unsuccessful
-Remains in sinus rhythm.
-BP stable, not on any pressors for support
-Plan for medical management of CAD:
Cont ASA 81mg daily, hold on additional anti-platelet agent given transfusion dependent anemia
Cont high intensity statin, Crestor
Cont Lopressor and monitor for signs of acute HF
Cont Diovan
-Ischemic cardiomyopathy
Appears euvolemic, monitor wts closely.
PCWP was 12 mmHg at time of R/LHC
Will likely require IV lasix in the event she receives additional blood products
Cont Lopressor and Diovan and eventual consideration to transition to Entresto
-LV apical thrombus:
Continue heparin gtt for now - ok to hold for femoral line removal
Eventual transition to OAC when stable
-Transfusion depend anemia
Appreciate GI input
Received 2 units since admit
Monitor H/H
-DKA
HbA1c elevated
Tx as per primary service
-VDRF
Wean vent as per photoradio operator
Cont pulm toilet
Discussed with nursing
CCT: 40 minutes
Progress Note - Logistics Engineer
Subjective
Date of Service: October 15, 2024
Patient seen and examined. Sedated on vent
Objective
Labs:
Labs
Hgb 8.9 g/dL (12.0-16.0) L 10/15/24 04:56
Hct 28.8 % (37.0-47.0) L 10/15/24 04:56
Plt Count 248 10^3/uL (130-400) 10/15/24 04:56
PT 18.3 Sec (11.4-14.6) H 10/13/24 17:53
INR 1.50 10/13/24 17:53
APTT 118.7 Sec (23.4-35.0) H 10/15/24 04:56
Sodium 135 mmol/L (135-145) 10/15/24 04:56
Potassium 3.3 mmol/L (3.5-5.1) L 10/15/24 04:56
BUN 8 mg/dl (7-17) 10/15/24 04:56
Creatinine 0.7 mg/dL (0.6-1.0) 10/15/24 04:56
Glucose 219 mg/dl (70-99) H 10/15/24 04:56
Troponins
10/13/24 10/14/24 10/14/24
14:10 06:36 12:45
Troponin I 38.600 H* 37.800 H* 32.700 H*
10/14/24
19:36
Troponin I 27.800 H*
Vital Signs and I&O:
Vital Signs
Temp Pulse Resp BP Pulse Ox
100.4 F H 90 20 124/72 100
10/15/24 07:00 10/15/24 06:00 10/15/24 06:00 10/15/24 06:00 10/15/24 06:00
Vital Signs
Temp Pulse Resp BP Pulse Ox
100.4 F H 90 20 124/72 100
10/15/24 07:00 10/15/24 06:00 10/15/24 06:00 10/15/24 06:00 10/15/24 06:00
Intake & Output
10/13/24 10/14/24 10/15/24 10/16/24
06:59 06:59 06:59 06:59
Intake Total 4273.05 / 4442.95 5542.3 / 5542.3
Output Total 1450 / 1450 856 / 856
Balance 2823.05 / 2992.95 4686.3 / 4686.3
Physical Exam
Physical Exam
General: Sedated on vent
Neck: Negative JVD
Heart: Regular, Negative S3 positive S1/S2, Negative S4, No murmur
Lungs: CTA b/l, negative wheezes/rales/rhonchi
Abd: Positive BS, NT/ND, neg rebound/rigidity/guarding
Ext: Negative cyanosis/clubbing/edema
Neuro: nonfocal
[2024-10-15 08:37] LABS: Glucose - Point of Care 253 mg/dl (70-99)
--- NOTE | 2024-10-15 08:40 | PTCARENOTE ---
Dr. Melendrez aware we now have a TL PICC. Right femoral venous sheath no longer necessary.CT PA notified by Dr. Melendrez via TT.
[2024-10-15 08:48] LABS: Lactic Acid 1.1 mmol/L (0.7-2.0)
[2024-10-15 09:21] LABS: B-Hydroxybutyrate 0.26 mmol/L (0.02-0.27); Blood Urea Nitrogen 7 mg/dl (7-17); Calcium 7.3 mg/dl (8.4-10.2); Carbon Dioxide 13 mmol/L (22-30); Chloride 111 mmol/L (98-107); Estimated Creatinine Clearance 91 ml/min; Glucose 240 mg/dl (70-99); Phosphorus 1.5 mg/dl (2.5-4.5); Potassium 3.4 mmol/L (3.5-5.1); Sodium 134 mmol/L (135-145); eGFR > 60.00
[2024-10-15 09:50] LABS: Glucose - Point of Care 255 mg/dl (70-99)
[2024-10-15] MEDS: SUBLIMAZE 100 IV (10:17)
[2024-10-15] MEDS: DIOVAN 20 MG TUBE ×2 (10:20→19:56)
[2024-10-15] MEDS: MIRALAX 17 GRAMS TUBE (10:20)
[2024-10-15] MEDS: LOW STRENGTH ASPIRIN 81 MG TUBE (10:22)
[2024-10-15] MEDS: LOPRESSOR 12.5 MG TUBE ×2 (10:22→20:01)
[2024-10-15] MEDS: SUBLIMAZE 50 MCG IV (10:33)
--- NOTE | 2024-10-15 10:37 | PHA.VAN.IN ---
Assessment
- Assessment
Renal Function: Appears similar to baseline
Renal Function may be Overestimated due to: bmi=30.4
Maximum Temperature: 101F
Concomitant Antimicrobials: cefepime
AUC Dosing Plan
- Dosing Variables
Dosing Weight (kg): 72.9
Dosing CrCl (ml/min): 91
Vd coefficient (L/kg): 0.6
- Empiric Dosing
Initial / Loading Dose: 750mg
Maintenance Regimen: 750mg q12h
Estimated AUC (mcg*h/mL): 446
Estimated Peak (mcg*h/mL): 27.8
Estimated Trough (mcg/ml): 11.5
Estimated Half Life (H): 8.7
- Monitoring
No levels ordered at this time: consider at steady state
Pharmacokinetics Vancomycin I
- -
Patient Age: 49
Patient Sex: Female
Vancomycin Day #: 1
Indication: Pulmonary/Respiratory
Requesting Provider: Dr. Nunez
Pertinent Antimicrobial Allergies:
nkda
Height / Weight:
Height 5 ft 1 in
Actual Weight 72.9 kg
IBW in k.8
- Vital Signs / Lab Results
Temp Pulse Resp BP Pulse Ox
100.4 F H 100 20 133/74 100
10/15/24 07:00 10/15/24 10:22 10/15/24 08:00 10/15/24 10:22 10/15/24 08:17
Lab Results - Hematology
10/13/24 10/14/24 10/14/24
15:55 03:34 12:45
WBC 37.1 H 22.3 H 19.8 H
10/15/24
04:56
WBC 15.3 H
Lab Results - Chemistry
10/13/24 10/13/24 10/14/24
14:10 19:37 00:17
BUN 28 H 26 H 23 H
Creatinine 1.2 H 0.9 0.8
Estimated Creat Clear 50 66 74
Albumin 4.4
10/14/24 10/14/24 10/14/24
03:34 04:00 08:00
BUN 22 H Cancelled Cancelled
Creatinine 0.8 Cancelled Cancelled
Estimated Creat Clear 74 Cancelled Cancelled
Albumin
10/14/24 10/14/24 10/14/24
08:23 12:00 12:45
BUN 17 Cancelled 15
Creatinine 0.8 Cancelled 0.8
Estimated Creat Clear 76 Cancelled 76
Albumin
10/14/24 10/14/24 10/14/24
16:00 19:36 20:00
BUN Cancelled 11 Cancelled
Creatinine Cancelled 0.7 Cancelled
Estimated Creat Clear Cancelled 87 Cancelled
Albumin
10/14/24 10/15/24 10/15/24
23:50 00:00 00:30
BUN 9 Cancelled Cancelled
Creatinine 0.7 Cancelled Cancelled
Estimated Creat Clear 87 Cancelled Cancelled
Albumin
10/15/24 10/15/24
04:56 08:24
BUN 8 7
Creatinine 0.7 0.7
Estimated Creat Clear 87 91
Albumin 2.5 L D
10/13/24 10/14/24 10/15/24
15:55 12:45 08:24
Lactic Acid 0.8 1.1 1.1
Lab Results - Urine
10/13/24 10/13/24
18:00 19:37
Urine Nitrite (Reflex) Cancelled Negative
Leukocyte Esterase Rfl Cancelled Negative
Urine WBC (Reflex) 0-2
Ur Squamous Epith Cells 0-2
Urine Bacteria (Reflex) Few A
Microbiology Results
10/14/24 00:17 Blood Culture - Preliminary
Blood/Venous No Growth in 24 hours- Final report to follow
10/14/24 13:22 Gram Stain - Preliminary
Endotracheal
10/14/24 12:07 Influenza Types A & B (DOREEN) - Final
Nasal Swab Negative for Influenza A & B, NAAT
Negative results must be combined with clinical observations
and patient history.
Nucleic Acid Amplification test (NAAT)performed on the
[employer] platform.
[2024-10-15 10:40] LABS: Glucose - Point of Care 250 mg/dl (70-99)
[2024-10-15] MEDS: NSS VEN SHEATH (11:08)
[2024-10-15] MEDS: D5/0.45%NSS with KCL 20 MEQ IV (11:09)
[2024-10-15] MEDS: SODIUM BICARBONATE 1150 MEQ IV ×2 (11:18→21:41)
[2024-10-15] MEDS: MAXIPIME 2000 MG IV ×2 (11:29→18:10)
[2024-10-15] MEDS: STERILE WATER FOR INJECTION 10 ML IV ×2 (11:30→18:10)
[2024-10-15] MEDS: VANCOCIN 150 IV ×2 (11:30→18:09)
[2024-10-15] MEDS: KCL ELIXIR 40 MEQ TUBE (11:30)
[2024-10-15] MEDS: NEUTRA-PHOS POWDER PACKET 500 MG PO ×2 (11:31→15:38)
[2024-10-15 11:45] LABS: Glucose - Point of Care 246 mg/dl (70-99)
[2024-10-15 12:52] LABS: Glucose - Point of Care 181 mg/dl (70-99)
--- NOTE | 2024-10-15 12:59 | PTCARENOTE ---
Dr. Nunez notified. Will insert indwelling bladder catheter as ordered.
[2024-10-15] MEDS: NOVOLIN R INSULIN INFUSION 100 IV (13:12)
[2024-10-15] MEDS: XOPENEX 1.25 MG INHALANT SOLUTION INH ×2 (13:32→21:33)
[2024-10-15] MEDS: ATROVENT NEBULES 0.5 MG INH ×2 (13:33→21:33)
[2024-10-15 13:44] LABS: Glucose - Point of Care 144 mg/dl (70-99)
--- NOTE | 2024-10-15 13:44 | W.PN.HOSP.TC ---
Today's Communication/Plan
-
Please see plan in it's entirety
Assessment / Plan
Assessment / Plan
Gen: NAD, NCAT
CV: remains RRR, +S1/S2, no m/r/g.
Resp: CTAB anteriorly, no rales, wheezes, or rhonchi.
Abd: remains +BS, soft, NT, ND
Skin: No rashes.
Neuro: sedated
Psych: calm
10/14/24 13:22 Endotracheal Respiratory Culture - Preliminary
10/14/24 13:22 Endotracheal Gram Stain - Preliminary
10/14/24 00:17 Blood/Venous Blood Culture - Preliminary
No Growth in 24 hours- Final report to follow
10/14/24 12:07 Nasal Swab Influenza Types A & B (DOREEN) - Final
Negative for Influenza A & B, NAAT
Negative results must be combined with clinical observations
and patient history.
Nucleic Acid Amplification test (NAAT)performed on the
[employer] [facility] [employer] platform.
RHC/C 10/13/24:
1. Late presenting anterolateral ST elevation [place] with 100% thrombotic occlusion in the mid LAD with PAUL 0 flow. Proximal LAD has a large burden of what appears to be organized nonocclusive thrombus, with 95% stenosis. No significant improvement
in flow despite multiple passes of mechanical aspiration thrombectomy, balloon angioplasty and vasodilators.
2. Normal right and left-sided filling pressures with normal cardiac output.
Bedside EGD 10/14/24: LA Grade C erosive esophagitis in the mid and distal
esophagus with no bleeding.
- Few, small linear and superficial, well-healed
esophageal ulcers with no bleeding and no stigmata of
recent bleeding found in the distal esophagus.
- Otherwise normal proximal esophagus.
- Mild amount of nasogastric tube trauma present in
stomach.
- Otherwise, normal stomach on direct and retroflexion
views
- Normal examined duodenum up to the third portion
- The examination was otherwise normal without any old
or fresh blood or other bleeding lesions throughout
the examined upper GI tract.
- No specimens collected.
Acute anterolateral STEMI:
-transfer from [facility]
-RHC/LHC 10/13/24 as above, 95% prox LAD occlusion, 100% mid LAD occlusion, unable to restore flow
-cont heparin gtt
-cont ASA/statin/BB
-trop 38.6, trending down
-cards following
-currently intubated/sedated with propofol
ICM/Acute HFrEF:
-Echo: LVEF 30-35% with LAD territory wall motion abnormality and LV thrombus
-cont BB/ARB
Fever:
-Cefepime started
-Flu/COVID NEG
-follow Cxs
-CXR pending
Acute DKA:
-cont insulin gtt/IVFs
-AG now closed
-note, lactic acid normal
-start bicarb infusion for non-AG met acidosis
Acute blood loss anemia:
-GI following
-cont PPI gtt x 72 hours
-s/p 2U pRBCs
-trend Hb
-bedside EGD above and notable for erosive esophagitis, well-healed esophageal ulcers without bleeding or stigmata of recent bleeding
-appreciate GI who has signed off
Other problems:
HANNA: resolved with IVFs
Hypokalemia, replete
Hypophosphatemia, replete
Obesity due to excess calories
FULL/Heparin gtt
Total critical care time spent = 35 min
Anticipated Discharge: > 48 hours
Subjective/Interval History
-
Date of Service: October 15, 2024
Intubated/sedated.
Objective Data
-
Labs:
Laboratory Results
10/15/24 10/15/24 10/15/24
00:00 00:30 04:56
WBC 15.3 H
Hgb 8.9 L
Hct 28.8 L
Plt Count 248
APTT 118.7 H
Sodium Cancelled Cancelled 135
Potassium Cancelled Cancelled 3.3 L
Chloride Cancelled Cancelled 114 H
Carbon Dioxide Cancelled Cancelled 13 L*
BUN Cancelled Cancelled 8
Creatinine Cancelled Cancelled 0.7
Glucose Cancelled Cancelled 219 H
Calcium Cancelled Cancelled 7.1 L
Total Bilirubin 0.5
AST 133 H
ALT 29
Alkaline Phosphatase 104
10/15/24 10/15/24 10/15/24
08:24 12:30 18:00
WBC
Hgb Pending
Hct Pending
Plt Count
APTT Cancelled
Sodium 134 L
Potassium 3.4 L
Chloride 111 H
Carbon Dioxide 13 L*
BUN 7
Creatinine 0.7
Glucose 240 H
Calcium 7.3 L
Total Bilirubin
AST
ALT
Alkaline Phosphatase
10/15/24
19:00
WBC
Hgb
Hct
Plt Count
APTT Pending
Sodium
Potassium
Chloride
Carbon Dioxide
BUN
Creatinine
Glucose
Calcium
Total Bilirubin
AST
ALT
Alkaline Phosphatase
Vital Signs:
Vital Signs
Temp Pulse Resp BP Pulse Ox
100 F 100 22 133/74 100
10/15/24 13:42 10/15/24 13:33 10/15/24 13:33 10/15/24 10:22 10/15/24 13:42
I&O
10/14/24 10/15/24 10/16/24
06:59 06:59 06:59
Intake Total 4273.05 / 4442.95 5542.3 / 5752.1 1323.6 / 1323.6
Output Total 1450 / 1450 856 / 856 675 / 675
Balance 2823.05 / 2992.95 4686.3 / 4896.1 648.6 / 648.6
--- NOTE | 2024-10-15 14:30 | PTCARENOTE ---
and 2 daughters at the bedside. He was informed she is having fevers, antibiotics started, will attempt SBT tomorrow. No other questions at this time. He retained all her belonging from the room.
[2024-10-15 15:40] LABS: Glucose - Point of Care 132 mg/dl (70-99)
[2024-10-15] MEDS: TYLENOL ORAL SOLUTION 650 MG PO ×2 (15:44→20:24)
--- NOTE | 2024-10-15 15:51 | PTCARENOTE ---
Core temp 102.5, tylenol administered. Continues to have copious ibrahim secretion from ETT. [employer] Roaster notified
[2024-10-15 17:42] LABS: Glucose - Point of Care 149 mg/dl (70-99)
[2024-10-15] MEDS: CRESTOR 20 MG TUBE (18:09)
[2024-10-15 18:45] LABS: Hematocrit 25.8 % (37.0-47.0); Hemoglobin 8.5 g/dL (12.0-16.0)
[2024-10-15 18:58] LABS: APTT 69.2 Sec (23.4-35.0)
[2024-10-15 19:54] LABS: Glucose - Point of Care 126 mg/dl (70-99)
--- NOTE | 2024-10-15 20:00 | PTCARENOTE ---
Received pt intubated and sedated on propofol and fentanyl gtts. Pt. fluttered eyes when RN doing cares but no sustained opening or tracking. No commands followed. + corneals, pupils 3mm sluggish B/L. Weak gag, + cough. Restraints in place for
safety. #7.0 ETT 22 cm in the center. Tolerating A/C 20/400/+5/40%. Spo2 100%. Lungs coarse with rhonchi. Suctioned for large amount thick ibrahim secretions via ETT. Hypoactive bowel sounds. R nare DH tube in place, no feeds at this time. Temp sensing
pradhan draining yellow urine. R radial dsg removed, R groin dsg c/d/i. R upper lip with scab after ETT was moved from that spot. Mouth care provided. R TL PICC with heparin gtt, fentanyl and propofol, bicarb gtt, insulin, and protonix gtts. See
worklist for all titrations. L H and L AC PIVs patent and capped. Turning q2
[2024-10-15 20:38] LABS: Glucose - Point of Care 121 mg/dl (70-99)
--- NOTE | 2024-10-15 20:44 | PTCARENOTE ---
Received pt intubated and sedated on propofol and fentanyl gtts. Pt. fluttered eyes when RN doing cares but no sustained opening or tracking. No commands followed. + corneals, pupils 3mm sluggish B/L. Weak gag, + cough. Restraints in place for
safety. #7.0 ETT 22 cm in the center. Tolerating A/C 20/400/+5/40%. Spo2 100%. Lungs coarse with rhonchi. Suctioned for large amount thick ibrahim secretions via ETT. NSR on tele, HR 80s. BP 100s/70s. +1 generalized anasarca. Temp 101.3 - tylenol given.
+ DP and radial pulses. Hypoactive bowel sounds. R nare DH tube in place, no feeds at this time. Temp sensing pradhan draining yellow urine. R radial dsg removed, R groin dsg c/d/i. R upper lip with scab after ETT was moved from that spot. Mouth care
provided. R TL PICC with heparin gtt, fentanyl and propofol, bicarb gtt, insulin, and protonix gtts. See worklist for all titrations. L H and L AC PIVs patent and capped. Turning q2
[2024-10-15 21:42] LABS: Glucose - Point of Care 105 mg/dl (70-99)
[2024-10-15 22:44] LABS: Glucose - Point of Care 100 mg/dl (70-99)
[2024-10-15] MEDS: HEPARIN 25000 UNITS/250 ML IV (23:26)
[2024-10-15 23:40] LABS: Glucose - Point of Care 123 mg/dl (70-99)
--- NOTE | 2024-10-15 23:46 | PTCARENOTE ---
Pt. reassessed. Continues with copious amounts thick ibrahim secretions, requiring frequent suctioning via ETT. Propofol turned off- will monitor. Remains on 25mcg/hr fentanyl. Restraints in place. Temp down to 100.4. Glycemic protocol ongoing. Next PTT
due 0100
[2024-10-16] VITALS (34 sets, daily range): BP systolic 104–139; BP diastolic 63–89; BMI 30.5
[2024-10-16 00:43] LABS: Glucose - Point of Care 112 mg/dl (70-99)
[2024-10-16] MEDS: SUBLIMAZE 50 MCG IV ×2 (00:50→17:07)
[2024-10-16 01:16] LABS: APTT 88.4 Sec (23.4-35.0)
[2024-10-16] MEDS: STERILE WATER FOR INJECTION 10 ML IV ×3 (01:57→17:07)
[2024-10-16] MEDS: MAXIPIME 2000 MG IV ×3 (01:57→17:07)
[2024-10-16] MEDS: DIPRIVAN 100 IV (02:39)
--- NOTE | 2024-10-16 02:43 | PTCARENOTE ---
Pt. more restless, gently pulling up at restraints, coughing, stacking breaths on vent. Was off propofol for about 5 hrs- Propofol restarted at 10mcg now. Pt. not following commands, opening eyes/tracking.
Bathed with CHG. Continues to need frequent suctioning. Occasional blood tinged sputum now.
[2024-10-16 02:52] LABS: Glucose - Point of Care 73 mg/dl (70-99)
[2024-10-16 03:53] LABS: Glucose - Point of Care 126 mg/dl (70-99)
[2024-10-16 04:31] LABS: Glucose - Point of Care 135 mg/dl (70-99)
[2024-10-16 04:32] LABS: Hematocrit 23.5 % (37.0-47.0); Hemoglobin 7.7 g/dL (12.0-16.0); Mean Corp Hgb Conc. 32.8 g/dL (33.0-37.0); Mean Corpuscular Hgb 21.6 pg (27.0-31.0); Mean Corpuscular Volume 65.8 fL (81.0-99.0); Mean Platelet Volume 9.6 fL (7.4-10.4); Platelet Count 219 10^3/uL (130-400); Red Blood Cell Count 3.57 10^6/uL (4.20-5.40); Red Cell Dist. Width 23.8 % (11.5-14.5)
[2024-10-16] MEDS: TYLENOL ORAL SOLUTION 650 MG PO ×3 (04:35→22:52)
--- NOTE | 2024-10-16 04:42 | PTCARENOTE ---
Hgb 7.7 this AM - GENERAL ROAD SUPERVISOR notified. 1 unit PRBCs ordered. No active s/s bleeding.
Temp back up to 101 - tylenol given.
[2024-10-16] MEDS: VANCOCIN 150 IV ×2 (05:03→17:07)
[2024-10-16 05:13] LABS: HCO3 20.3 mmol/L (21-28); O2 Saturation % 99.3 % (94-98); PCO2 26 mmHg (32-35); PO2 164 mmHg (83-108)
[2024-10-16 05:42] LABS: Blood Urea Nitrogen 6 mg/dl (7-17); Calcium 6.4 mg/dl (8.4-10.2); Carbon Dioxide 30 mmol/L (22-30); Chloride 96 mmol/L (98-107); Estimated Creatinine Clearance 106 ml/min; Glucose 120 mg/dl (70-99); Iron 37 ug/dl (37-170); Magnesium 1.6 mg/dl (1.6-2.3); Potassium 2.6 mmol/L (3.5-5.1); Sodium 133 mmol/L (135-145); Triglycerides 243 mg/dl (10-149); eGFR > 60.00
[2024-10-16 05:49] LABS: Percent Saturation 17 % (20-50); Total Iron Binding Capacity 207 ug/dl (265-497)
[2024-10-16 05:57] LABS: Glucose - Point of Care 181 mg/dl (70-99)
[2024-10-16 06:12] LABS: Ferritin 31.4 ng/ml (6.24-137)
[2024-10-16] MEDS: NSS 1000 IV (06:18)
[2024-10-16] MEDS: KCL ELIXIR 40 MEQ TUBE (06:18)
[2024-10-16] MEDS: KCL 270 MEQ IV (06:40)
[2024-10-16 06:53] LABS: Glucose - Point of Care 174 mg/dl (70-99)
--- NOTE | 2024-10-16 07:25 | W.PN.CARDCBS ---
Today's Communication / Plan
-
-Remains in sinus rhythm.
-BP remains stable, not on any pressors for support
-Plan for medical management of CAD:
Cont ASA 81mg daily, hold on additional anti-platelet agent given transfusion dependent anemia
Cont high intensity statin, Crestor
Cont Lopressor and monitor for signs of acute HF
Cont Diovan
-Ischemic cardiomyopathy
Appears euvolemic, monitor wts closely.
PCWP was 12 mmHg at time of R/LHC
Will likely require IV lasix in the event she receives additional blood products
Cont Lopressor and Diovan and eventual consideration to transition to Entresto
-LV apical thrombus:
Continue heparin gtt for now
Eventual transition to OAC when stable
Impression / Plan
-
.
Physician Asst: None, seen initially at [facility]
Impression:
Late presentation anterior [place]
Ischemic cardiomopathy LVEF 30-35%
Failed PCI attempt proximal LAD occlusion
Apical mural thrombus of LV
Acute DKA, newly diagnosed diabetes
Erosive esophagitis mid and distal esophagus
Acute on chronic microcytic anemia
HANNA
Acute Transaminitis
Stat echo performed in the emergency department showed moderately depressed LV function with EF around 35-40%. Anteroseptum, anterior, apical segments appear severely hypokinetic. Contrast echo views show mural apical LV thrombus. Mild TR
10/13/24: CTA chest
1. No definite CT evidence for esophageal rupture. No evidence of pneumomediastinum.
2. 1.4 cm ovoid structure interposed between the distal esophagus and aorta. This likely represents a paraesophageal lymph node. A small extraluminal collection from the distal esophagus cannot be entirely excluded. If clinical symptoms persist
consider barium swallow /esophagram, as a follow-up
3. Fatty infiltration of the liver
4. Cholelithiasis
Left and right Cath Oct 13 2024:
HEMODYNAMICS : (mmHg)
RA (m) : 8
RV (s/d,m) : 41/8, 11
PA (s/d, m) : 33/18, 25
PCWP (m) : 12
PA saturation: 73.2% on 40% FiO2
AO saturation: 99.5% on 40% FiO2
RA saturation: 75.1% on 40% FiO2
Cardiac Output : 4.70 L/min by Franny calculation
Cardiac Index : 2.94 L/min/m-2 by Franny calculation
Systemic vascular resistance: 1404 dsc^(-5)
Pulmonary vascular resistance: 2.72 burroughs unit
Heart rate: 109 bpm
AO (s/d) : 111/75
LV pressures were not measured with known left ventricular thrombus on echocardiogram at [facility].
CORONARY FINDINGS
DOMINANCE: Right
LEFT MAIN: The left main artery is a large-caliber vessel, short which gives rise to the left anterior descending artery and the left circumflex artery. There is minimal luminal irregularities.
LEFT ANTERIOR DESCENDING: The left into descending artery is a large-caliber vessel which gives rise to multiple small caliber diagonal branches. There is 100% thrombotic occlusion in the mid LAD with PAUL 0 flow. Proximal LAD has a large burden
of what appears to be organized nonocclusive thrombus, with 95% stenosis.
CIRCUMFLEX: The left circumflex artery is a medium to large caliber vessel which gives rise to 2 major obtuse marginal branches, moderately tortuous, there is minimal luminal irregularities.
RIGHT CORONARY ARTERY: The right coronary artery is a large caliber, dominant, moderately tortuous vessel which is rise to the right posterior descending artery and the right posterolateral system. There is minimal luminal irregularities.
CONCLUSIONS
1. Late presenting anterolateral ST elevation [place] with There is 100% thrombotic occlusion in the mid LAD with PAUL 0 flow. Proximal LAD has a large burden of what appears to be organized nonocclusive thrombus, with 95% stenosis. No significant
improvement in flow despite multiple passes of mechanical aspiration thrombectomy, balloon angioplasty and vasodilators.
2. Normal right and left-sided filling pressures with normal cardiac output.
Plan:
-Transferred from [facility] as late presentation anterior STEMI, LVEF 30-35% with LAD territory wall motion abnormality and LV thrombus
-R/LHC 10/13/24 with 95% pLAD and 100% mLAD and attempts to restore coronary flow were unsuccessful
-Remains in sinus rhythm.
-BP remains stable, not on any pressors for support
-Plan for medical management of CAD:
Cont ASA 81mg daily, hold on additional anti-platelet agent given transfusion dependent anemia
Cont high intensity statin, Crestor
Cont Lopressor and monitor for signs of acute HF
Cont Diovan
-Ischemic cardiomyopathy
Appears euvolemic, monitor wts closely.
PCWP was 12 mmHg at time of R/LHC
Will likely require IV lasix in the event she receives additional blood products
Cont Lopressor and Diovan and eventual consideration to transition to Entresto
-LV apical thrombus:
Continue heparin gtt for now
Eventual transition to OAC when stable
-Transfusion depend anemia
Appreciate GI input
Received 2 units since admit
Monitor H/H
-DKA
HbA1c elevated
Tx as per primary service
-VDRF
Wean vent as per welding manager
Cont pulm toilet
Discussed with nursing
CCT: 33 minutes
Progress Note - Physician Asst
Subjective
Date of Service: October 16, 2024
Patient seen and examined. Sedated on vent.
Objective
Labs:
Labs
Hgb 7.7 g/dL (12.0-16.0) L 10/16/24 03:56
Hct 23.5 % (37.0-47.0) L 10/16/24 03:56
Plt Count 219 10^3/uL (130-400) 10/16/24 03:56
PT 18.3 Sec (11.4-14.6) H 10/13/24 17:53
INR 1.50 10/13/24 17:53
APTT 88.4 Sec (23.4-35.0) H 10/16/24 00:53
Sodium 133 mmol/L (135-145) L 10/16/24 03:56
Potassium 2.6 mmol/L (3.5-5.1) L* 10/16/24 03:56
BUN 6 mg/dl (7-17) L 10/16/24 03:56
Creatinine 0.5 mg/dL (0.6-1.0) L 10/16/24 03:56
Glucose 120 mg/dl (70-99) H 10/16/24 03:56
Troponins
10/13/24 10/14/24 10/14/24
14:10 06:36 12:45
Troponin I 38.600 H* 37.800 H* 32.700 H*
10/14/24
19:36
Troponin I 27.800 H*
Vital Signs and I&O:
Vital Signs
Temp Pulse Resp BP Pulse Ox
100.0 F 91 14 104/71 100
10/16/24 07:00 10/16/24 07:00 10/16/24 07:00 10/16/24 07:00 10/16/24 07:00
Vital Signs
Temp Pulse Resp BP Pulse Ox
100.0 F 91 14 104/71 100
10/16/24 07:00 10/16/24 07:00 10/16/24 07:00 10/16/24 07:00 10/16/24 07:00
Intake & Output
10/14/24 10/15/24 10/16/24 10/17/24
06:59 06:59 06:59 06:59
Intake Total 4273.05 / 4442.95 5542.3 / 5752.1 3978.3 / 4088.7 110.4 / 110.4
Output Total 1450 / 1450 856 / 856 2470 / 2470 275 / 275
Balance 2823.05 / 2992.95 4686.3 / 4896.1 1508.3 / 1618.7 -164.6 / -164.6
Physical Exam
Physical Exam
General: No acute distress, sedated on vent
Neck: Negative JVD
Heart: Regular, Negative S3 positive S1/S2, Negative S4, No murmur
Lungs: CTA b/l, negative wheezes/rales/rhonchi
Abd: Positive BS, NT/ND, neg rebound/rigidity/guarding
Ext: Negative cyanosis/clubbing/edema
Neuro: nonfocal
[2024-10-16] MEDS: ATROVENT NEBULES 0.5 MG INH ×3 (07:54→20:41)
[2024-10-16] MEDS: XOPENEX 1.25 MG INHALANT SOLUTION INH ×3 (07:54→20:42)
--- NOTE | 2024-10-16 08:07 | W.PN.INTV ---
Today's Communication / Plan
Recommendations
Started ABx on 10/15 for LLL pneumonia with worsening rhonchorous breath sounds and febrile overnight
Follow up repeat sputum culture from ETT from 10/15
Continue to trend H&H while on heparin drip
EGD on 10/14/2024 showed esophageal ulcers with no evidence of acute GI bleed
Continue ASA
Cardiology on board and recs appreciated
OGT removed and replaced with Dobbhoff tube for tube feeds at PO meds
Continue mechanical ventilation with daily SAT/SBT --> hopefully can extubate today
Bridge off insulin drip today and then start ISS q6hr with lantus 20 units BID
DC bicarb drip now that she no longer acidotic
Trend [K] and serum HCO3
Patient remains critically ill - continue ICU level of care
Assessment
-
Assessment: 49-year-old F with no known PMHx who presented to OSH at [facility] on 10/13/2024 with several days of SOB, nausea, fatigue and body aches. HPI obtained from medical records as pt is intubated. She had chest pain this past Thursday, but thought
it was gas and it subsided. Her SOB and nausea persisted though. She came to the ER and EKG showed anterolateral ST elevations with Q-waves, with ST elevations in inferior leads with AK-depressions. Ct chest ruled out esophageal tear. Labs
showed an elevated troponin to 2400, WBC 33, platelet 700 and chemistry showed evidence of DKA with acidosis (pH 7 on VBG). She's been having polyuria and polydipsia x 2 weeks as well. She denies a personal or family Hx of diabetes. Of note, she
vomited blood clots on day of ER arrival as well. Stat echo in the ER at [facility] showed depressed LVEF around 35% with severely hypokinetic anteroseptal, anterior, apical segments. Contrast echo showed a mural apical thrombus. She was Dx with a late
presentation anterior AR, and was TRX here to [place] for cardiac intervention. Prior to TRX she was given 325mg ASA and started on heparin gtt. Given a NS bolus and insulin gtt also started.
Chronic conditions NETWORK SUPPORT: Non-contributory
Impression:
#ACS with late presentation anterolateral STEMI
#DKA without history of diabetes -DKA now resolved
#Pseudohyponatremia due to DKA with hyperglycemia - pseudohyponatremia now resolved
#Severe metabolic acidosis -now resolved s/p bicarb drip
#Acute respiratory failure with hypercapnia (undercompensation in the setting of metabolic acidosis) now on mechanical ventilation (intubated for left heart cath on 10/13/2024)
#Left lower lobe pneumonia
#Apical LV mural thrombus (reported from outside hospital echo)
#Leukocytosis
#Anemia with reported bloody emesis at [facility]
#Thrombocytosis (likely reactive) - resolved
#Transaminitis
#Elevated troponin due to ACS as above in the setting of HANNA � peaked at 38.6 on 10/13/2024
#ICM with LVEF: 30-35% without current evidence of left-sided heart failure (PCWP: 12mmHg per RHC today)
Plan:
- Patient went to [facility] on 10/13 and I spoke with the ground instructor advanced, Dr. Stevenson, and recommended to intubate the patient prior to performing left heart catheterization given the patient's extremely low pH with risk of worsening respiratory acidosis
if anesthesia is given, which would put her at risk of cardiac arrest
- Patient returned from the [facility] to the ICU on 10/13: there was 100% thrombotic occlusion in the mid LAD we then organized nonocclusive thrombus in the proximal LAD with 95% stenosis. No significant in flow despite multiple passes of
mechanical aspiration thrombectomy balloon angioplasty and vasodilators. The wedge pressure was 25 with an mPAP of 25 mmHg. Also normal left-sided filling pressures with normal cardiac output/index of 4.7/2.9, respectively. PVR was 2.72 Wood
units. Her PVR was 2.72, CO/CI: 4.78/2.94 (Franny), RA: 11/9, RV: 41/8
- Heparin drip initially held due to acute anemia, she underwent EGD on 10/14/2024 showing LA grade C erosive esophagitis with few, small linear and superficial well-healed esophageal ulcers.
- Heparin drip resumed on the evening of 10/10/2024 after the EGD
- No benefit to try to reopen her LAD lesion - I discussed this case with Dr. Weber on 10/14/2024
- Lightly sedate with goal RASS 0 to -2
- Continue to trend blood gas now that she is intubated to assure pH is improving/stable
- Continue with mechanical ventilation with daily SAT/SBT if clinically indicated
- Titrate FiO2 + PEEP to maintain SpO2 >94%
- Maintain plateau pressure <30
- Frequent oropharyngeal + deep ETT suctioning as needed
- Trend her leukocytosis
- As of 10/15/2024, she has worsening retrocardiac opacification, and she sounds rhonchorous on exam and is febrile
- Continue broad-spectrum antibiotics with IV vancomycin + cefepime (started 10/15/2024)
- Check a new set of sputum cultures
- Follow-up blood culture (collected 10/14/2024 - NGTD); sputum culture from 10/14/2024 grew MSSA; continue Vanco for now until MRSA swab returns as she worsened on 10/15
- Bridge off insulin gtt today --> she has been on 112 units last 24 hrs --> will give 40 units lantus now then start 20 units BID
- Once off insulin gtt then start ISS q6hr
- Turn off insulin gtt 2 hours after lantus 40 units is given
- DC bicarb gtt now that acidosis resolved
- Avoid hypokalemia and avoid hypoglycemia
- Check q1hr FS while on insulin gtt
- A1C: 13.3 on 10/13/2024
- Goal LDL<70 (was 70 on 10/14/2024)
- Maintain MAP>65
- Replete electrolytes with K>4, Mg>2
- Maintain euglycemia with goal BG 140-180
- Trend H/H and transfuse if needed to keep Hb>8g/dL; keep plt>50k
- prn nebulized bronchodilators - not currently bronchospastic
- Stress ulcer ppx: On PPI gtt s/p EGD; also there was reports of UGIB at [facility]
- GI consulted and EGD performed on 10/14/2024 showing LA grade C esophagitis with esophageal ulcer with no bleeding or stigmata of recent bleeding normal stomach, and normal examined duodenum; recommend to remove OGT. We replaced her OGT with
Dobbhoff tube for tube feeds and PO medications
- Maintain large bore IV x2
- Heparin gtt resumed 10/14/2024 s/p EGD - continue to monitor H/H as above
- DVT ppx: heparin gtt
Critical care statement: A total of 38 minutes of critical care time was provided for this patient today. This includes management of unstable vital signs, evaluation of the patient at bedside, reviewing the patient's pertinent medical records
including radiographs, microbiology, laboratory evaluations, and discussion with primary team, consultants, pharmacy, nutrition, physical therapy, case management, charge nurse, critical care nursing, and respiratory therapy.
Data:
Outside Hospital TTE 10/13/2024:
LVEF: 30-35%; Multiple segmental abnormalities exist. Mild eccentric LVH; moderately decreased LV systolic function; grade II diastolic dysfunction, pseudonormal pattern; Laminated mural thrombus of the LV apex suggested on contrast images; normal
RV size and function; Normal LA by volume index and normal RA by area; Mild MR; RAP is 3mmHg with estimated RVSP: 17mmHg. No prior studies available for comparison.
CXR 10/13/2024:
1. Endotracheal tube terminating 1.2 cm proximal to the ramin.
2. Nasogastric tube terminating in the stomach.
3. No radiographic evidence for acute pulmonary edema or pleural effusion.
CXR 10/15/2024: Cannot exclude some left basilar opacification such as subsegmental atelectasis and/or pneumonia.
CXR 10/16/2024: Worsening left basilar pneumonia
Subjective Dataa
Subjective Data
Date of Service:
Date of Service: October 16, 2024
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
Subjective:
Patient seen and evaluated today at bedside. Febrile overnight with Tmax 102.5 �F yesterday afternoon. This morning she is following commands. Currently intubated on AC/CMV at 18/400/35%/5, with PIP: 18unO3Y, VTe 541cc and breathing at 22
breaths/min. End-tidal CO2: 25. Heart rate 97, BP 108/76 and SpO2 100%. Currently sedated on fentanyl at 25mcg/hr and propofol at 10mcg/kg/min. Also on insulin at 0.4 units/h and PPI drip.
Review of Systems
General: Unobtainable - Sedation
Objective Data
Data Reviewed
Vital Signs / I&O / Oxygen:
Vital Signs
Temp Pulse Resp BP Pulse Ox
99.8 F 93 20 116/76 100
10/16/24 08:58 10/16/24 09:00 10/16/24 09:00 10/16/24 09:00 10/16/24 09:55
Intake and Output
10/15/24 10/16/24 10/17/24
06:59 06:59 06:59
Intake Total 5542.3 / 5752.1 3978.3 / 4088.7 887.1 / 887.1
Output Total 856 / 856 2470 / 2470 350 / 350
Balance 4686.3 / 4896.1 1508.3 / 1618.7 537.1 / 537.1
SaO2 [A/C] 100
SaO2 100
Physical Exam
General: Respiratory Distress (negative), Comfortable, Chills (negative) and Sweats (negative)
HEENT: Normocephalic, Anicteric and Other (ETT in place)
Cardiovascular: S1-S2 and Peripheral Edema (negative)
Respiratory: Wheeze (negative), Crackles (Bilateral), Rhonchi (Bilateral), Non-Labored Respirations, Stridor (negative) and ET Tube (Mechanical breath sounds heard bilaterally)
GI: Soft, Non Distended, Non Tender and Normal Bowel Sounds
Neurology: Tremors (negative) and Other (Sedated but easily arousable and following all commands)
Skin: Warm, Dry, Cyanosis (negative) and Jaundice (negative)
Labs/Micro/Reports
Laboratory Results
10/13/24 10/15/24 10/15/24
15:55 12:30 18:35
APTT Cancelled 69.2 H
pH 7.01 L*
pCO2 21 L
pO2 179 H
HCO3 5.3 L*
O2 Delivery Level
10/16/24 10/16/24 10/16/24
00:53 04:41 06:44
APTT 88.4 H 171.6 H*
pH 7.50 H
pCO2 26 L
pO2 164 H
HCO3 20.3 L
O2 Delivery Level
Microbiology
10/14/24 13:22 Endotracheal Respiratory Culture - Final
S aureus-Methicillin Sensitive
10/14/24 13:22 Endotracheal Gram Stain - Final
10/14/24 00:17 Blood/Venous Blood Culture - Preliminary
No Growth in 48 hours- Final report to follow
10/14/24 12:07 Nasal Swab Influenza Types A & B (DOREEN) - Final
Negative for Influenza A & B, NAAT
Negative results must be combined with clinical observations
and patient history.
Nucleic Acid Amplification test (NAAT)performed on the
[employer] platform.
[2024-10-16 08:19] LABS: APTT 171.6 Sec (23.4-35.0)
--- NOTE | 2024-10-16 08:33 | PHA.VAN.FU ---
Vancomycin Assessment / Plan
- Assessment
Renal Function: Stable
WBC's are: Trending Down
In the past 24 hrs, patient has been: Febrile (102.5F)
Concomitant Antimicrobials: CEFEPIME
- Dosing Plan
Continue: 750MG Q12H
- Monitoring Plan
Peak Level: 10/17 @2030
Trough Level: 10/18 @0530
- Follow Up
Pharmacy will continue to follow.
Vancomycin Follow UP
- -
Patient Age: 49
Patient Sex: Female
Vancomycin Day #: 2
Indication: Pulmonary/Respiratory
Requesting Provider: Dr. Nunez
Pertinent Antimicrobial Allergies:
nkda
Height / Weight:
Height 5 ft 1 in
Actual Weight 73.3 kg
IBW in k.8
- Vital Signs / Lab Results
Temp Pulse Resp BP Pulse Ox
100.0 F 89 20 104/71 100
10/16/24 07:00 10/16/24 07:55 10/16/24 07:55 10/16/24 07:00 10/16/24 07:00
Lab Results - Hematology
10/13/24 10/14/24 10/14/24
15:55 03:34 12:45
WBC 37.1 H 22.3 H 19.8 H
10/15/24 10/16/24
04:56 03:56
WBC 15.3 H 12.0 H
Lab Results - Chemistry
10/13/24 10/13/24 10/14/24
14:10 19:37 00:17
BUN 28 H 26 H 23 H
Creatinine 1.2 H 0.9 0.8
Estimated Creat Clear 50 66 74
Albumin 4.4
10/14/24 10/14/24 10/14/24
03:34 04:00 08:00
BUN 22 H Cancelled Cancelled
Creatinine 0.8 Cancelled Cancelled
Estimated Creat Clear 74 Cancelled Cancelled
Albumin
10/14/24 10/14/24 10/14/24
08:23 12:00 12:45
BUN 17 Cancelled 15
Creatinine 0.8 Cancelled 0.8
Estimated Creat Clear 76 Cancelled 76
Albumin
10/14/24 10/14/24 10/14/24
16:00 19:36 20:00
BUN Cancelled 11 Cancelled
Creatinine Cancelled 0.7 Cancelled
Estimated Creat Clear Cancelled 87 Cancelled
Albumin
10/14/24 10/15/24 10/15/24
23:50 00:00 00:30
BUN 9 Cancelled Cancelled
Creatinine 0.7 Cancelled Cancelled
Estimated Creat Clear 87 Cancelled Cancelled
Albumin
10/15/24 10/15/24 10/16/24
04:56 08:24 03:56
BUN 8 7 6 L
Creatinine 0.7 0.7 0.5 L
Estimated Creat Clear 87 91 106
Albumin 2.5 L D
10/13/24 10/14/24 10/15/24
15:55 12:45 08:24
Lactic Acid 0.8 1.1 1.1
Microbiology Results
10/14/24 13:22 Respiratory Culture - Preliminary
Endotracheal Gram Stain - Preliminary
10/14/24 00:17 Blood Culture - Preliminary
Blood/Venous No Growth in 48 hours- Final report to follow
10/14/24 12:07 Influenza Types A & B (DOREEN) - Final
Nasal Swab Negative for Influenza A & B, NAAT
Negative results must be combined with clinical observations
and patient history.
Nucleic Acid Amplification test (NAAT)performed on the
[employer] platform.
[2024-10-16 08:43] LABS: Glucose - Point of Care 97 mg/dl (70-99)
[2024-10-16] MEDS: DIOVAN 20 MG TUBE ×2 (09:29→20:02)
[2024-10-16] MEDS: LOPRESSOR 12.5 MG TUBE ×2 (09:30→20:02)
[2024-10-16] MEDS: CALCIUM GLUCONATE 100 IV (09:30)
[2024-10-16] MEDS: LOW STRENGTH ASPIRIN 81 MG TUBE (09:30)
[2024-10-16] MEDS: MIRALAX TUBE (09:30)
--- NOTE | 2024-10-16 09:50 | W.PN.HOSP.TC ---
Today's Communication/Plan
-
see plan in it's entirety
Assessment / Plan
Assessment / Plan
Gen: NAD, NCAT
CV: continues to remain RRR, +S1/S2, no m/r/g.
Resp: remains CTAB anteriorly, no rales, wheezes, or rhonchi.
Abd: continues to remain +BS, soft, NT, ND
Skin: No rashes.
Neuro: sedated
Psych: calm
10/14/24 13:22 Endotracheal Respiratory Culture - Final
S aureus-Methicillin Sensitive
10/14/24 13:22 Endotracheal Gram Stain - Final
10/14/24 00:17 Blood/Venous Blood Culture - Preliminary
No Growth in 48 hours- Final report to follow
10/14/24 12:07 Nasal Swab Influenza Types A & B (DOREEN) - Final
Negative for Influenza A & B, NAAT
Negative results must be combined with clinical observations
and patient history.
Nucleic Acid Amplification test (NAAT)performed on the
[employer] platform.
RHC/C 10/13/24:
1. Late presenting anterolateral ST elevation AR with 100% thrombotic occlusion in the mid LAD with PAUL 0 flow. Proximal LAD has a large burden of what appears to be organized nonocclusive thrombus, with 95% stenosis. No significant improvement
in flow despite multiple passes of mechanical aspiration thrombectomy, balloon angioplasty and vasodilators.
2. Normal right and left-sided filling pressures with normal cardiac output.
Bedside EGD 10/14/24: LA Grade C erosive esophagitis in the mid and distal
esophagus with no bleeding.
- Few, small linear and superficial, well-healed
esophageal ulcers with no bleeding and no stigmata of
recent bleeding found in the distal esophagus.
- Otherwise normal proximal esophagus.
- Mild amount of nasogastric tube trauma present in
stomach.
- Otherwise, normal stomach on direct and retroflexion
views
- Normal examined duodenum up to the third portion
- The examination was otherwise normal without any old
or fresh blood or other bleeding lesions throughout
the examined upper GI tract.
- No specimens collected.
Acute anterolateral STEMI:
-transfer from [facility]
-RHC/LHC 10/13/24 as above, 95% prox LAD occlusion, 100% mid LAD occlusion, unable to restore flow
-cont heparin gtt
-cont ASA/statin/BB
-trop 38.6, trended down
-cards following
-currently intubated (ACMV 400/18/5/35%) sedated with propofol/fentanyl
ICM/Acute HFrEF:
-Echo: LVEF 30-35% with LAD territory wall motion abnormality and LV thrombus
-on heparin gtt
-cont BB/ARB
Fever:
-currently on Cefepime/Vanco
-Flu/COVID NEG
-follow Cxs, as above, resp Cx with MSSA
-CXR 10/15/24: Cannot exclude some left basilar opacification such as subsegmental atelectasis and/or pneumonia.
-fever is possibly due to PNA (CXR is equivocal) and therefore this would qualify as sepsis due to LLL PNA
Acute DKA:
-currently on insulin gtt with plan to transition off insulin gtt later today
-AG now closed
-note, lactic acid normal
-non-AG met acidosis now resolved with bicarb infusion
Acute blood loss anemia:
-bedside EGD above and notable for erosive esophagitis, well-healed esophageal ulcers without bleeding or stigmata of recent bleeding
-cont PPI gtt x 72 hours
-s/p 3U pRBCs
-trend Hb
-appreciate GI who has signed off
Other problems:
HANNA: resolved with IVFs
Hypokalemia, replete
Hypophosphatemia, replete
Hypocalcemia, replete
Obesity due to excess calories
FULL/Heparin gtt
Total critical care time spent = 33 min
Anticipated Discharge: > 48 hours
Subjective/Interval History
-
Date of Service: October 16, 2024
Objective Data
-
Labs:
Laboratory Results
10/13/24 10/16/24 10/16/24
15:55 00:53 03:56
WBC 12.0 H
Hgb 7.7 L
Hct 23.5 L
Plt Count 219
APTT 88.4 H
HCO3 5.3 L*
Sodium 133 L
Potassium 2.6 L*
Chloride 96 L
Carbon Dioxide 30
BUN 6 L
Creatinine 0.5 L
Glucose 120 H
Calcium 6.4 L*
10/16/24 10/16/24 10/16/24
04:41 06:44 10:00
WBC
Hgb Pending
Hct Pending
Plt Count
APTT 171.6 H*
HCO3 20.3 L
Sodium Pending
Potassium Pending
Chloride Pending
Carbon Dioxide Pending
BUN Pending
Creatinine Pending
Glucose Pending
Calcium Pending
10/16/24
16:00
WBC
Hgb
Hct
Plt Count
APTT Pending
HCO3
Sodium
Potassium
Chloride
Carbon Dioxide
BUN
Creatinine
Glucose
Calcium
Vital Signs:
Vital Signs
Temp Pulse Resp BP Pulse Ox
99.8 F 93 20 116/76 100
10/16/24 08:58 10/16/24 09:00 10/16/24 09:00 10/16/24 09:00 10/16/24 09:47
I&O
10/15/24 10/16/24 10/17/24
06:59 06:59 06:59
Intake Total 5542.3 / 5752.1 3978.3 / 4088.7 887.1 / 887.1
Output Total 856 / 856 2470 / 2470 350 / 350
Balance 4686.3 / 4896.1 1508.3 / 1618.7 537.1 / 537.1
[2024-10-16] MEDS: PROTONIX 100 IV ×2 (10:16→20:03)
[2024-10-16] MEDS: DIAMOX 250 MG PO (10:16)
[2024-10-16 10:33] LABS: Glucose - Point of Care 86 mg/dl (70-99)
[2024-10-16 11:00] LABS: Phosphorus 2.5 mg/dl (2.5-4.5)
[2024-10-16] MEDS: LANTUS 0.4 UNITS SC (11:15)
[2024-10-16 11:38] LABS: Hematocrit 32.6 % (37.0-47.0); Hemoglobin 10.4 g/dL (12.0-16.0)
[2024-10-16 11:42] LABS: Blood Urea Nitrogen 6 mg/dl (7-17); Calcium 7.7 mg/dl (8.4-10.2); Carbon Dioxide 24 mmol/L (22-30); Chloride 108 mmol/L (98-107); Estimated Creatinine Clearance 91 ml/min; Glucose 116 mg/dl (70-99); Potassium 3.5 mmol/L (3.5-5.1); Sodium 137 mmol/L (135-145); eGFR > 60.00
[2024-10-16] MEDS: NOVOLOG FLEXPEN-MODERATE RESISTANCE SC (11:56)
[2024-10-16] MEDS: MAGNESIUM OXIDE 500 MG TUBE (11:56)
[2024-10-16 12:03] LABS: Glucose - Point of Care 111 mg/dl (70-99)
--- NOTE | 2024-10-16 14:10 | PTCARENOTE ---
Pt drowsy. Sedation off. Sinus rhythm. Heparin gtt per protocol. +2 general edema. On SBT. Copious secretions via ETT today. Now blood tinged. Rhonchi noted bilaterally. IVF d/c'd. Insulin gtt off. New order for tube feeds. Protonix gtt
infusing per order. Loose brown BMs. Rectal trumpet placed. Ria urine via pradhan with core temp. PRN tylenol given per temps. All other assessments per charting.
[2024-10-16 15:38] LABS: B.E. -5.2 mmol/L; HCO3 17.9 mmol/L (21-28); O2 Saturation % 99.4 % (94-98); PCO2 27 mmHg (32-35); PO2 134 mmHg (83-108); pH 7.43 (7.35-7.45)
[2024-10-16 16:56] LABS: APTT 64.1 Sec (23.4-35.0)
--- NOTE | 2024-10-16 17:00 | PTCARENOTE ---
SBT x2hrs. HR increased to 120s. Copious secretions. ABG on 01/23 40%. Placed back on A/C. To wean again in am. All other assessments unchanged.
[2024-10-16] MEDS: CRESTOR 20 MG TUBE (17:06)
[2024-10-16 17:46] LABS: Glucose - Point of Care 168 mg/dl (70-99)
[2024-10-16] MEDS: NOVOLOG FLEXPEN-MODERATE RESISTANCE 1 UNITS SC (19:06)
--- NOTE | 2024-10-16 20:00 | PTCARENOTE ---
Received pt intubated and sedated on fentanyl gtt at 25mcg. Responds to verbal, followed simple commands, shook head 'no' when asked if she had pain. Pupils 3mm sluggish B/L. Weak gag, + cough. Restraints in place for safety. #7.0 ETT 22 cm in the
center. Tolerating A/C 18/400/+5/35%. Spo2 100%. Lungs coarse with rhonchi. Suctioned for large amount thick ibrahim/blood tinged secretions via ETT. NSR on tele, HR 80s-90s. BP 120s/70-80s. +2 generalized anasarca. + DP and radial pulses. + bowel
sounds. R nare DH tube in place with jevity 1.5 at 20ml/hr with 25ml h20 flush. Will increase to ordered goal per protocol as tolerated. Temp sensing pradhan draining yellow urine. Previous R upper lip scab/sore no longer present. Lip and mouth care
provided. R TL PICC with heparin gtt, fentanyl and protonix gtts. L H and L AC PIVs patent and capped. Turning q2
--- NOTE | 2024-10-16 23:14 | PTCARENOTE ---
Pt. reassessed. Tylenol given for temp 101. Resting calmly when undisturbed.
[2024-10-17] VITALS (24 sets, daily range): BP systolic 111–137; BP diastolic 66–87; BMI 30.6
[2024-10-17 00:03] LABS: Glucose - Point of Care 289 mg/dl (70-99)
[2024-10-17] MEDS: LANTUS 0.2 UNITS SC (00:08)
[2024-10-17] MEDS: NOVOLOG FLEXPEN-MODERATE RESISTANCE 5 UNITS SC ×3 (00:09→17:58)
[2024-10-17 00:53] LABS: APTT 191.5 Sec (23.4-35.0)
[2024-10-17] MEDS: MAXIPIME 2000 MG IV ×3 (01:56→17:22)
[2024-10-17] MEDS: STERILE WATER FOR INJECTION 10 ML IV ×3 (01:56→17:22)
[2024-10-17 04:04] LABS: % Basophils 0.4 % (0-2); % Eosinophils 0.9 % (0-6); % Immature Granulocytes 0.8 % (0-0.5); % Lymphocytes 5.4 % (20.5-51.1); % Monocytes 10.9 % (1.7-9.3); % Neutrophils 81.6 % (42.2-75.2); Absolute Basophils 0.1 10^3/uL (0-0.2); Absolute Eosinophils 0.1 10^3/uL (0-0.7); Absolute Immature Granulocytes 0.1 10^3/uL (0-0.05); Absolute Lymphocytes 0.8 10^3/uL (1.2-3.4); Absolute Monocytes 1.7 10^3/uL (0.1-0.6); Absolute Neutrophils 12.5 10^3/uL (1.4-6.5); Hematocrit 32.4 % (37.0-47.0); Hemoglobin 10.5 g/dL (12.0-16.0); Mean Corp Hgb Conc. 32.4 g/dL (33.0-37.0); Mean Corpuscular Hgb 22.6 pg (27.0-31.0); Mean Corpuscular Volume 69.7 fL (81.0-99.0); Mean Platelet Volume 9.8 fL (7.4-10.4); Nucleated Red Blood Cells % 0 %; Platelet Count 256 10^3/uL (130-400); Red Blood Cell Count 4.65 10^6/uL (4.20-5.40); Red Cell Dist. Width 24.2 % (11.5-14.5); White Blood Cell Count 15.3 10^3/uL (4.8-10.8)
[2024-10-17 04:06] LABS: B.E. -3.6 mmol/L; HCO3 19.2 mmol/L (21-28); O2 Saturation % 99.7 % (94-98); PCO2 27 mmHg (32-35); PO2 137 mmHg (83-108); pH 7.46 (7.35-7.45)
[2024-10-17 04:29] LABS: ALT (SGPT) 42 U/L (0-35); AST (SGOT) 61 U/L (14-36); Albumin 2.4 g/dl (3.5-5.0); Alkaline Phosphatase 160 U/L (38-126); Blood Urea Nitrogen 12 mg/dl (7-17); Carbon Dioxide 20 mmol/L (22-30); Chloride 108 mmol/L (98-107); Estimated Creatinine Clearance 80 ml/min; Glucose 276 mg/dl (70-99); Magnesium 2.1 mg/dl (1.6-2.3); NT-proBNP 3640 pg/ml; Phosphorus 2.1 mg/dl (2.5-4.5); Potassium 3.3 mmol/L (3.5-5.1); Sodium 136 mmol/L (135-145); Total Bilirubin 0.7 mg/dl (0.2-1.3); Total Protein 5.2 g/dl (6.3-8.2); eGFR > 60.00
--- NOTE | 2024-10-17 04:57 | PTCARENOTE ---
Pt. reassessed. Continues to interact appropriately, nodding yes and no, easily arousable. Remains on fentanyl gtt at 25mcg. AM labs drawn. Bathed with CHG. Rectal trumpet remains- small amt output overnight. Heparin was held x1 hr then decreased to
600units per protocol. Repeat PTT due 0700.
[2024-10-17] MEDS: PROTONIX 100 IV ×2 (06:07→17:21)
[2024-10-17] MEDS: VANCOCIN 150 IV (06:07)
[2024-10-17 06:17] LABS: Glucose - Point of Care 287 mg/dl (70-99)
[2024-10-17] MEDS: KCL 270 MEQ IV (06:22)
[2024-10-17 06:53] LABS: APTT 57.2 Sec (23.4-35.0)
[2024-10-17] MEDS: XOPENEX 1.25 MG INHALANT SOLUTION INH ×3 (07:33→20:22)
[2024-10-17] MEDS: ATROVENT NEBULES 0.5 MG INH ×4 (07:33→20:22)
--- NOTE | 2024-10-17 07:52 | PN.DE.MGMTRT ---
Insulin Management
- -
10/17/2024: Diabetes Management Consult.
49 year old female with no PMH, presented to OSH at [facility] on 10/13/2024 with several days of SOB, nausea, fatigue and body aches.
Pt is intubated and sedated, information obtained from medical records. EKG in the ER showed anterolateral ST elevations with Q-waves, with ST elevations in inferior leads with SD-depressions. Contrast echo showed a mural apical thrombus and pt was
Dx with a late presentation anterior DC, and was TRX to for cardiac intervention. BMP showed evidence of DKA and pt was started on DKA protocol, later transitioned to glycemic protocol when GAP closed.
Of note, pt denied personal and/or family Hx of diabetes. A1C was 13.3% on admission. Cr 0.8 eGFR >60.
Pt intubated, lightly sedated, unable to interview at this time. and Mom at bedside.
She was transitioned off insulin infusion to SQ insulin yesterday.
Pt is NPO on Tube feeds @20cc/hr with incremental increase to goal. Noted for Hyperglycemia since transitioning off the drip.
Glucose has remained >200, was 289 @ 11pm, received Lantus 20 units, 3AM glucose was 289(V), FBG 287 POC this AM.
Will start NovoLog 5 units Q 6 hrs and increase Lantus to 25 units BID. Cont moderate corrective Q6 hrs.
Pt is newly dx with T2DM. Will provide glucose monitor and Insulin instructions when medically stable and ready for education.
Diabetes History
- -
Type of Diabetes: 2 requiring insulin
Pre-Admission Diabetes Regimen
10/16/24 10/17/24
11:07 03:40
Creatinine 0.7 0.8
Lab Results
Hemoglobin A1c 13.3 % (4.0-5.6) H 10/13/24 15:55
Insulin Pump Settings
IP Diabetes Regimen
10/16/24 10/16/24 10/16/24
08:32 10:22 11:07
Glucose 116 H
POC Glucose 97 86
10/16/24 10/16/24 10/16/24
11:51 17:34 23:52
Glucose
POC Glucose 111 H 168 H 289 H
10/17/24 10/17/24
03:40 06:06
Glucose 276 H
POC Glucose 287 H
Patient Education
--- NOTE | 2024-10-17 07:55 | W.PN.INTV ---
Addendum entered and electronically signed by Angeles King MD 10/17/24 13:12:
Reexamined patient with fentanyl off. She is following commands, moving all extremities, nodding appropriately
maintain off fentanyl drip
Discontinue propofol
Fentanyl as needed
Maintain ASV, consider transition to CPAP once more awake
Updated and mother at bedside
Original Note:
Today's Communication / Plan
Recommendations
Continue heparin drip
Follow hemoglobin
Continue cefepime, vancomycin
Increase Atrovent nebs to 4 times a day, add Flovent
Follow blood sugars
Continue with vent wean as able, changed to ASV
Assessment
-
Assessment: 49-year-old F with no known PMHx who presented to OSH at [facility] on 10/13/2024 with several days of SOB, nausea, fatigue and body aches. HPI obtained from medical records as pt is intubated. She had chest pain this past Thursday, but thought
it was gas and it subsided. Her SOB and nausea persisted though. She came to the ER and EKG showed anterolateral ST elevations with Q-waves, with ST elevations in inferior leads with MD-depressions. Ct chest ruled out esophageal tear. Labs
showed an elevated troponin to 2400, WBC 33, platelet 700 and chemistry showed evidence of DKA with acidosis (pH 7 on VBG). She's been having polyuria and polydipsia x 2 weeks as well. She denies a personal or family Hx of diabetes. Of note, she
vomited blood clots on day of ER arrival as well. Stat echo in the ER at [facility] showed depressed LVEF around 35% with severely hypokinetic anteroseptal, anterior, apical segments. Contrast echo showed a mural apical thrombus. She was Dx with a late
presentation anterior SD, and was TRX here to [place] for cardiac intervention. Prior to TRX she was given 325mg ASA and started on heparin gtt. Given a NS bolus and insulin gtt also started.
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
Impression:
#ACS with late presentation anterolateral STEMI
#DKA without history of diabetes -DKA now resolved
#Pseudohyponatremia due to DKA with hyperglycemia - pseudohyponatremia now resolved
#Severe metabolic acidosis -now resolved s/p bicarb drip
#Acute respiratory failure with hypercapnia (undercompensation in the setting of metabolic acidosis) now on mechanical ventilation (intubated for left heart cath on 10/13/2024)
#Left lower lobe pneumonia
#Apical LV mural thrombus (reported from outside hospital echo)
#Leukocytosis
#Anemia with reported bloody emesis at [facility]
#Thrombocytosis (likely reactive) - resolved
#Transaminitis
#Elevated troponin due to ACS as above in the setting of HANNA � peaked at 38.6 on 10/13/2024
#ICM with LVEF: 30-35% without current evidence of left-sided heart failure (PCWP: 12mmHg per RHC today)
Plan/recommendations:
At this time, patient remains critically ill, mechanical ventilation, ventilator dependent
Secretions seem to be improved over last 24 hours
Wheezing persists on exam
Elevated blood sugars noted
Remains on minimal fentanyl, 25 mcg
Remains on cefepime/vancomycin
Moving forward
Continue with volume-cycled ventilation, transition to ASV
Airway pressures adequate
We will assess later today for SBT
Wheezing is somewhat concerning
Continue Xopenex, increase Atrovent to every 6 hours, add Flovent
Hope for extubation in the next 24 hours
Reviewed cardiology correspondence
Plan to continue heparin drip for now
Patient received 3 units of blood, presently stable
Remains on aspirin, statin, metoprolol
[employer] Product Consultant 10/13/2024 reviewed. 100% thrombotic occlusion in mid LAD.
No benefit in opening up LAD lesion
Echo 10/14/2024 EF 35%, apical thrombus present, PA pressure 35
Maintained on Protonix drip
Hemoglobin stable
Transition to twice daily per GI recommendations
Presented with bloody emesis, EGD report reviewed
Trend her leukocytosis
Wheezing on exam noted
Chest x-ray per my review with mild patchy infiltrate bilaterally
Difficult to differentiate between heart failure and pneumonia
Sputum culture positive for MSSA
Remains on cefepime, vancomycin
Adjust as able
Blood sugars noted
Off insulin drip at this time
Continue with moderate resistance dosing, diabetes nurse practitioner following, appreciate input
Hemoglobin A1c 13.3 on admission
Follow electrolytes
Follow blood sugars
GI prophylaxis: Remains on Protonix drip, transition to twice daily per GI
DVT prophylaxis: Remains on heparin drip
Critical care statement: A total of 37 minutes of critical care time was provided for this patient today. This includes management of unstable vital signs, evaluation of the patient at bedside, reviewing the patient's pertinent medical records
including radiographs, microbiology, laboratory evaluations, and discussion with primary team, consultants, pharmacy, nutrition, physical therapy, case management, charge nurse, critical care nursing, and respiratory therapy.
Data:
Outside Hospital TTE 10/13/2024:
LVEF: 30-35%; Multiple segmental abnormalities exist. Mild eccentric LVH; moderately decreased LV systolic function; grade II diastolic dysfunction, pseudonormal pattern; Laminated mural thrombus of the LV apex suggested on contrast images; normal
RV size and function; Normal LA by volume index and normal RA by area; Mild MR; RAP is 3mmHg with estimated RVSP: 17mmHg. No prior studies available for comparison.
CXR 10/13/2024:
1. Endotracheal tube terminating 1.2 cm proximal to the ramin.
2. Nasogastric tube terminating in the stomach.
3. No radiographic evidence for acute pulmonary edema or pleural effusion.
CXR 10/15/2024: Cannot exclude some left basilar opacification such as subsegmental atelectasis and/or pneumonia.
CXR 10/16/2024: Worsening left basilar pneumonia
Subjective Dataa
Subjective Data
Date of Service:
Date of Service: October 17, 2024
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
Subjective:
Patient remains critically ill, on mechanical ventilation. Secretions continue but seem to have improved. Patient is awake at times and follows commands per nursing. Remains on antibiotics. Wheezing continues otherwise
Objective Data
Data Reviewed
Vital Signs / I&O / Oxygen:
Vital Signs
Temp Pulse Resp BP Pulse Ox
100.0 F 97 15 124/81 100
10/17/24 03:30 10/17/24 07:34 10/17/24 07:34 10/17/24 06:00 10/17/24 07:34
Intake and Output
10/16/24 10/17/24 10/18/24
06:59 06:59 06:59
Intake Total 3978.3 / 4088.7 2352.7 / 2352.7
Output Total 2470 / 2470 2360 / 2360
Balance 1508.3 / 1618.7 -7.3 / -7.3
SaO2 [A/C] 100
SaO2 100
Physical Exam
General: Comfortable
HEENT: Normocephalic, Anicteric and Other (ETT in place)
Cardiovascular: S1-S2, Regular Rhythm, Murmur (n), Rub (n) and Peripheral Edema (negative)
Respiratory: Wheeze (Scattered), Crackles (few), Rhonchi (few), Non-Labored Respirations, Stridor (negative) and ET Tube (Mechanical breath sounds heard bilaterally)
GI: Soft, Non Distended, Non Tender and Normal Bowel Sounds
Neurology: Lethargic (Sedated but follows commands and easily awoken)
Skin: Warm, Dry, Cyanosis (negative) and Jaundice (negative)
Labs/Micro/Reports
Lab Data
10/17/24 03:40
10/17/24 03:40
Laboratory Results
10/16/24 10/16/24 10/16/24
06:44 15:29 16:33
APTT 171.6 H* 64.1 H
pH 7.43
pCO2 27 L
pO2 134 H
HCO3 17.9 L
O2 Delivery Level
10/17/24 10/17/24 10/17/24
00:08 03:52 06:29
APTT 191.5 H* 57.2 H
pH 7.46 H
pCO2 27 L
pO2 137 H
HCO3 19.2 L
O2 Delivery Level
Microbiology
10/14/24 00:17 Blood/Venous Blood Culture - Preliminary
No Growth in 72 hours- Final report to follow
10/15/24 13:48 Nose MRSA Screen - Final
No Methicillin Resistant Staphylococcus aureus isolated.
10/15/24 16:09 Endotracheal Gram Stain - Preliminary
10/14/24 13:22 Endotracheal Respiratory Culture - Final
S aureus-Methicillin Sensitive
10/14/24 13:22 Endotracheal Gram Stain - Final
10/14/24 12:07 Nasal Swab Influenza Types A & B (DOREEN) - Final
Negative for Influenza A & B, NAAT
Negative results must be combined with clinical observations
and patient history.
Nucleic Acid Amplification test (NAAT)performed on the
[employer] platform.
[2024-10-17 08:23] LABS: Anisocytosis 1+; Hypochromasia 1+; Normal RBC Morphology No; Polychromasia 1+
[2024-10-17 08:24] LABS: Ovalocytes 1+
[2024-10-17] MEDS: LOW STRENGTH ASPIRIN 81 MG TUBE (08:25)
[2024-10-17] MEDS: DIOVAN 20 MG TUBE ×2 (08:25→19:37)
[2024-10-17] MEDS: LOPRESSOR 12.5 MG TUBE ×2 (08:25→19:38)
[2024-10-17] MEDS: MIRALAX TUBE (08:26)
[2024-10-17] MEDS: LANTUS SC (08:34)
--- NOTE | 2024-10-17 09:45 | W.PN.CARDCBS ---
Today's Communication / Plan
-
cont med tx of CAD
Cont IV heparin
Vent wean
HR and bp stable
Monitor wts
Impression / Plan
-
.
Strategic Marketing Associate: None, seen initially at [facility]
Impression:
Late presentation anterior NV
Ischemic cardiomopathy LVEF 30-35%
Failed PCI attempt proximal LAD occlusion
Apical mural thrombus of LV
Acute DKA, newly diagnosed diabetes
Erosive esophagitis mid and distal esophagus
Acute on chronic microcytic anemia
HANNA
Acute Transaminitis
Stat echo performed in the emergency department showed moderately depressed LV function with EF around 35-40%. Anteroseptum, anterior, apical segments appear severely hypokinetic. Contrast echo views show mural apical LV thrombus. Mild TR
10/13/24: CTA chest
1. No definite CT evidence for esophageal rupture. No evidence of pneumomediastinum.
2. 1.4 cm ovoid structure interposed between the distal esophagus and aorta. This likely represents a paraesophageal lymph node. A small extraluminal collection from the distal esophagus cannot be entirely excluded. If clinical symptoms persist
consider barium swallow /esophagram, as a follow-up
3. Fatty infiltration of the liver
4. Cholelithiasis
Left and right Cath Oct 13 2024:
HEMODYNAMICS : (mmHg)
RA (m) : 8
RV (s/d,m) : 41/8, 11
PA (s/d, m) : 33/18, 25
PCWP (m) : 12
PA saturation: 73.2% on 40% FiO2
AO saturation: 99.5% on 40% FiO2
RA saturation: 75.1% on 40% FiO2
Cardiac Output : 4.70 L/min by Franny calculation
Cardiac Index : 2.94 L/min/m-2 by Franny calculation
Systemic vascular resistance: 1404 dsc^(-5)
Pulmonary vascular resistance: 2.72 burroughs unit
Heart rate: 109 bpm
AO (s/d) : 111/75
LV pressures were not measured with known left ventricular thrombus on echocardiogram at [facility].
CORONARY FINDINGS
DOMINANCE: Right
LEFT MAIN: The left main artery is a large-caliber vessel, short which gives rise to the left anterior descending artery and the left circumflex artery. There is minimal luminal irregularities.
LEFT ANTERIOR DESCENDING: The left into descending artery is a large-caliber vessel which gives rise to multiple small caliber diagonal branches. There is 100% thrombotic occlusion in the mid LAD with PAUL 0 flow. Proximal LAD has a large burden
of what appears to be organized nonocclusive thrombus, with 95% stenosis.
CIRCUMFLEX: The left circumflex artery is a medium to large caliber vessel which gives rise to 2 major obtuse marginal branches, moderately tortuous, there is minimal luminal irregularities.
RIGHT CORONARY ARTERY: The right coronary artery is a large caliber, dominant, moderately tortuous vessel which is rise to the right posterior descending artery and the right posterolateral system. There is minimal luminal irregularities.
CONCLUSIONS
1. Late presenting anterolateral ST elevation NV with There is 100% thrombotic occlusion in the mid LAD with PAUL 0 flow. Proximal LAD has a large burden of what appears to be organized nonocclusive thrombus, with 95% stenosis. No significant
improvement in flow despite multiple passes of mechanical aspiration thrombectomy, balloon angioplasty and vasodilators.
2. Normal right and left-sided filling pressures with normal cardiac output.
Plan:
-Transferred from [facility] as late presentation anterior STEMI, LVEF 30-35% with LAD territory wall motion abnormality and LV thrombus
-R/LHC 10/13/24 with 95% pLAD and 100% mLAD and attempts to restore coronary flow were unsuccessful
-Remains in sinus rhythm.
-BP remains stable, not on any pressors for support
-Continue medical management of CAD:
Cont ASA 81mg daily, hold on additional anti-platelet agent given transfusion dependent anemia
Cont high intensity statin, Crestor
Cont Lopressor and monitor for signs of acute HF
Cont Diovan
-Ischemic cardiomyopathy
Remains euvolemic, monitor wts closely.
PCWP was 12 mmHg at time of R/LHC
Will likely require IV lasix in the event she receives additional blood products
Cont Lopressor and Diovan and eventual consideration to transition to Entresto
Cont to monitor wt which is slowly rising.
-LV apical thrombus:
Continue heparin gtt
Eventual transition to OAC when able
-Transfusion depend anemia
Appreciate GI input
Received 2 units since admit
Monitor H/H
-DKA
HbA1c elevated on admit
Tx as per primary service
-VDRF
Wean vent as per title abstractor
Cont pulm toilet
Discussed with nursing, and family at bedside including mother and .
CCT: 31 minutes
Progress Note - Strategic Marketing Associate
Subjective
Date of Service: October 17, 2024
Pt seen and examined. Sedated on vent
Objective
Labs:
10/17/24 03:40
10/17/24 03:40
Labs
Hgb 10.5 g/dL (12.0-16.0) L 10/17/24 03:40
Hct 32.4 % (37.0-47.0) L 10/17/24 03:40
Plt Count 256 10^3/uL (130-400) 10/17/24 03:40
PT 18.3 Sec (11.4-14.6) H 10/13/24 17:53
INR 1.50 10/13/24 17:53
APTT 57.2 Sec (23.4-35.0) H 10/17/24 06:29
Sodium 136 mmol/L (135-145) 10/17/24 03:40
Potassium 3.3 mmol/L (3.5-5.1) L 10/17/24 03:40
BUN 12 mg/dl (7-17) 10/17/24 03:40
Creatinine 0.8 mg/dL (0.6-1.0) 10/17/24 03:40
Glucose 276 mg/dl (70-99) H 10/17/24 03:40
Troponins
10/14/24 10/14/24
12:45 19:36
Troponin I 32.700 H* 27.800 H*
Vital Signs and I&O:
Vital Signs
Temp Pulse Resp BP Pulse Ox
100.5 F H 84 16 115/87 100
10/17/24 09:41 10/17/24 09:00 10/17/24 09:00 10/17/24 09:00 10/17/24 09:00
Vital Signs
Temp Pulse Resp BP Pulse Ox
100.5 F H 84 16 115/87 100
10/17/24 09:41 10/17/24 09:00 10/17/24 09:00 10/17/24 09:00 10/17/24 09:00
Intake & Output
10/15/24 10/16/24 10/17/24 10/18/24
06:59 06:59 06:59 06:59
Intake Total 5542.3 / 5752.1 3978.3 / 4088.7 2352.7 / 2426.2 220.5 / 220.5
Output Total 856 / 856 2470 / 2470 2360 / 2360 235 / 235
Balance 4686.3 / 4896.1 1508.3 / 1618.7 -7.3 / 66.2 -14.5 / -14.5
Physical Exam
Physical Exam
General: No acute distress, sedated on vent
Neck: Negative JVD
Heart: Regular, Negative S3 positive S1/S2, Negative S4, No murmur
Lungs: CTA b/l, negative wheezes/rales/rhonchi
Abd: Positive BS, NT/ND, neg rebound/rigidity/guarding
Ext: Negative cyanosis/clubbing/edema
Neuro: nonfocal
[2024-10-17] MEDS: LANTUS 0.25 UNITS SC ×2 (09:58→22:25)
[2024-10-17] MEDS: HEPARIN 25000 UNITS/250 ML IV (10:15)
[2024-10-17] MEDS: NOVOLOG FLEXPEN 5 UNITS SC (11:55)
[2024-10-17] MEDS: NOVOLOG FLEXPEN-MODERATE RESISTANCE 3 UNITS SC (11:55)
[2024-10-17 12:06] LABS: Glucose - Point of Care 239 mg/dl (70-99)
--- NOTE | 2024-10-17 12:41 | PTCARENOTE ---
Pt drowsy. Nods appropriately, follows commands. Fentanyl gtt off.
Sinus rhythm +2 general edema.
Moderate thick, blood tinged secretions. Strong cough. Rhonchi noted bilaterally.
Tube feeds at 30ml/hr 25 FWF. Elevated BS. Adjustments made to insulin. Loose brown stools via RT.
Good urine output via pradhan (see I&Os)
Currently on heparin and protonix gtts.
All other assessments unchanged.
Family at bedside.
[2024-10-17] MEDS: TYLENOL ORAL SOLUTION 650 MG PO ×2 (12:57→19:37)
[2024-10-17] MEDS: FLOVENT 110 MCG INHALER 4 PUFF INH ×2 (13:26→20:20)
[2024-10-17 13:27] LABS: APTT 58.4 Sec (23.4-35.0)
--- NOTE | 2024-10-17 15:14 | W.PN.HOSP.TC ---
Today's Communication/Plan
-
weaned off sedation, fentanyl prn
ACVC for today, PS trial once more awake
DC Vanc, f/u cultures
RUQ Sono
Assessment / Plan
Assessment / Plan
Gen: NAD, NCAT
CV: continues to remain RRR, +S1/S2, no m/r/g.
Resp: remains CTAB anteriorly, no rales, wheezes, or rhonchi.
Abd: continues to remain +BS, soft, NT, ND
Skin: No rashes.
Neuro: sedated
Psych: calm
10/14/24 13:22 Endotracheal Respiratory Culture - Final
S aureus-Methicillin Sensitive
10/14/24 13:22 Endotracheal Gram Stain - Final
10/14/24 00:17 Blood/Venous Blood Culture - Preliminary
No Growth in 48 hours- Final report to follow
10/14/24 12:07 Nasal Swab Influenza Types A & B (DOREEN) - Final
Negative for Influenza A & B, NAAT
Negative results must be combined with clinical observations
and patient history.
Nucleic Acid Amplification test (NAAT)performed on the
[employer] platform.
[facility] 10/13/24:
1. Late presenting anterolateral ST elevation DC with 100% thrombotic occlusion in the mid LAD with PAUL 0 flow. Proximal LAD has a large burden of what appears to be organized nonocclusive thrombus, with 95% stenosis. No significant improvement
in flow despite multiple passes of mechanical aspiration thrombectomy, balloon angioplasty and vasodilators.
2. Normal right and left-sided filling pressures with normal cardiac output.
Bedside EGD 10/14/24: LA Grade C erosive esophagitis in the mid and distal
esophagus with no bleeding.
- Few, small linear and superficial, well-healed
esophageal ulcers with no bleeding and no stigmata of
recent bleeding found in the distal esophagus.
- Otherwise normal proximal esophagus.
- Mild amount of nasogastric tube trauma present in
stomach.
- Otherwise, normal stomach on direct and retroflexion
views
- Normal examined duodenum up to the third portion
- The examination was otherwise normal without any old
or fresh blood or other bleeding lesions throughout
the examined upper GI tract.
- No specimens collected.
#Acute hypoxic respiratory failure
� Secondary to left lower lobe pneumonia
� Weaned off sedation
� Maintain ASV, pressure support once more awake
-Will likely attempt pressure support tomorrow
Acute anterolateral STEMI:
-transfer from [facility]
-RHC/C 10/13/24 as above, 95% prox LAD occlusion, 100% mid LAD occlusion, unable to restore flow
-cont heparin gtt, transition to OAC once extubated and tolerating PO
-cont ASA/statin/BB
-trop 38.6, trended down
-cards following
-currently intubated (ACMV 400/18/5/35%) sedated with propofol/fentanyl
ICM/Acute HFrEF:
-Echo: LVEF 30-35% with LAD territory wall motion abnormality and LV thrombus
-on heparin gtt
-cont BB/ARB
#LV apical thrombus:
Continue heparin gtt for now
Eventual transition to OAC when stable
#Sepsis
#LLL Pneumonia
-currently on Cefepime/Vanco
-Flu/COVID NEG
-follow Cxs, as above, resp Cx with MSSA
-CXR 10/15/24: Cannot exclude some left basilar opacification such as subsegmental atelectasis and/or pneumonia.
-fever is possibly due to PNA (CXR is equivocal) and therefore this would qualify as sepsis due to LLL PNA
Acute DKA:
-Switch to subcutaneous insulin
-note, lactic acid normal
Acute blood loss anemia:
-bedside EGD above and notable for erosive esophagitis, well-healed esophageal ulcers without bleeding or stigmata of recent bleeding
-cont PPI gtt x 72 hours
-s/p 3U pRBCs
-trend Hb
-appreciate GI who has signed off
#Transaminitis
� I suspect secondary to antibiotics versus congestive hepatopathy
� Continue to monitor trend
� Complete abdominal ultrasound
Other problems:
HANNA: resolved with IVFs
Hypokalemia, replete
Hypophosphatemia, replete
Hypocalcemia, replete
Obesity due to excess calories
FULL/Heparin gtt
Total critical care time spent = 35 min
Anticipated Discharge: > 48 hours
Subjective/Interval History
-
Date of Service: October 17, 2024
Off sedation, responding appropriately. AC/VC, blood tinged secretions -moderate amount although good cough. Still febrile
Objective Data
-
Labs:
Laboratory Results
10/17/24 10/17/24 10/17/24
03:40 03:52 06:29
WBC 15.3 H
Hgb 10.5 L
Hct 32.4 L
Plt Count 256
APTT 57.2 H
HCO3 19.2 L
Sodium 136
Potassium 3.3 L
Chloride 108 H
Carbon Dioxide 20 L
BUN 12
Creatinine 0.8
Glucose 276 H
Calcium 8.0 L
Total Bilirubin 0.7
AST 61 H
ALT 42 H
Alkaline Phosphatase 160 H
10/17/24 10/17/24
12:57 20:00
WBC
Hgb
Hct
Plt Count
APTT 58.4 H Pending
HCO3
Sodium
Potassium
Chloride
Carbon Dioxide
BUN
Creatinine
Glucose
Calcium
Total Bilirubin
AST
ALT
Alkaline Phosphatase
Vital Signs:
Vital Signs
Temp Pulse Resp BP Pulse Ox
101 F H 91 15 131/81 100
10/17/24 12:57 10/17/24 13:35 10/17/24 13:35 10/17/24 12:00 10/17/24 13:36
I&O
10/16/24 10/17/24 10/18/24
06:59 06:59 06:59
Intake Total 3978.3 / 4088.7 2352.7 / 2493.7 615.5 / 615.5
Output Total 2470 / 2470 2360 / 2360 855 / 855
Balance 1508.3 / 1618.7 -7.3 / 133.7 -239.5 / -239.5
Review of Systems
-
History Source: Patient
All other systems: Not reviewed unless documented
Data Reviewed
-
Diagnostic Radiology: Report Reviewed by me
Labs: Labs Reviewed by me
--- NOTE | 2024-10-17 15:43 | CM ---
CM following re: discharge planning.
Reviewed pt's chart, met with pt.
Per Rounds meeting, pt remains intubated, continue supportive care.
Pt lives with and 3 children in a 2SH, 2 steps to enter, independent in all areas [employer]AN[employer].
D/C plan: uncertain at this time and will depend on pt's progress.
CM will follow with discharge plan updates as hospitalization progresses
--- NOTE | 2024-10-17 17:00 | PTCARENOTE ---
Pt drowsy. Fentanyl gtt off. Tolerated SBT today.
Tylenol given for temp 101.
All other assessments unchanged.
[2024-10-17] MEDS: CRESTOR 20 MG TUBE (17:22)
[2024-10-17 17:43] LABS: Glucose - Point of Care 250 mg/dl (70-99)
[2024-10-17] MEDS: NOVOLOG FLEXPEN 10 UNITS SC ×2 (17:58→23:50)
--- NOTE | 2024-10-17 18:30 | PTCARENOTE ---
Notified diabetes management and Dr King of elevated blood sugar. Adjustments made to insulin dose.
[2024-10-17] MEDS: SUBLIMAZE 50 MCG IV ×2 (19:38→22:25)
[2024-10-17 20:13] LABS: APTT 83.1 Sec (23.4-35.0)
[2024-10-17] MEDS: NOVOLOG FLEXPEN-HIGH RESISTANCE 7 UNITS SC (23:51)
[2024-10-17 23:54] LABS: Glucose - Point of Care 270 mg/dl (70-99)
[2024-10-18] VITALS (24 sets, daily range): BP systolic 114–149; BP diastolic 67–97; BMI 30.2
--- NOTE | 2024-10-18 00:22 | PTCARENOTE ---
Pt remains intubated with copious amount of thick ibrahim/blood tinged secretions. PRN sedation as needed. All sedative drips off. Opens eyes to voice, follow simple commands, drifts back to sleep. Temp 100.3 core, Tylenol given. NSR on monitor, BP
stable. Heparin and Protonix gtts as ordered, PTT therapeutic, will recheck at 0200. #7ETT, vent settings as ordered. Rhonchi throughout bilaterally. NPO at midnight for ultrasound of ABD in AM. Piedra draining clear yellow urine. Will monitor.
[2024-10-18] MEDS: SUBLIMAZE 50 MCG IV ×3 (01:07→05:04)
[2024-10-18] MEDS: TYLENOL ORAL SOLUTION 650 MG PO (01:08)
[2024-10-18] MEDS: STERILE WATER FOR INJECTION 10 ML IV ×3 (01:08→17:24)
[2024-10-18] MEDS: MAXIPIME 2000 MG IV ×3 (01:08→17:23)
[2024-10-18] MEDS: PROTONIX 100 IV ×2 (01:25→08:40)
[2024-10-18 03:40] LABS: Hemoglobin 10.2 g/dL (12.0-16.0); Mean Corp Hgb Conc. 31.9 g/dL (33.0-37.0); Mean Corpuscular Hgb 22.7 pg (27.0-31.0); Mean Corpuscular Volume 71.1 fL (81.0-99.0); Mean Platelet Volume 9.9 fL (7.4-10.4); Platelet Count 295 10^3/uL (130-400); Red Cell Dist. Width 24.5 % (11.5-14.5); White Blood Cell Count 17.5 10^3/uL (4.8-10.8)
[2024-10-18 03:59] LABS: Blood Urea Nitrogen 12 mg/dl (7-17); Calcium 7.7 mg/dl (8.4-10.2); Carbon Dioxide 23 mmol/L (22-30); Chloride 107 mmol/L (98-107); Estimated Creatinine Clearance 80 ml/min; Glucose 244 mg/dl (70-99); Potassium 2.9 mmol/L (3.5-5.1); Sodium 138 mmol/L (135-145); eGFR > 60.00
[2024-10-18 04:38] LABS: B.E. -1.1 mmol/L; HCO3 21.6 mmol/L (21-28); O2 Saturation % 99.6 % (94-98); PCO2 29 mmHg (32-35); PO2 122 mmHg (83-108); pH 7.48 (7.35-7.45)
[2024-10-18 04:40] LABS: O2 Therapy ASV 100%/30%
--- NOTE | 2024-10-18 04:54 | PTCARENOTE ---
AM care provided. Labs sent and resulted. Will replete K. Pt resting comfortably. Will monitor.
[2024-10-18] MEDS: KCL 100 IV (05:04)
[2024-10-18 05:28] LABS: Glucose - Point of Care 148 mg/dl (70-99)
[2024-10-18] MEDS: NOVOLOG FLEXPEN-HIGH RESISTANCE SC ×2 (05:29→12:00)
[2024-10-18] MEDS: NOVOLOG FLEXPEN SC ×2 (05:29→12:00)
[2024-10-18] MEDS: ATROVENT NEBULES 0.5 MG INH ×4 (07:19→21:04)
[2024-10-18] MEDS: XOPENEX 1.25 MG INHALANT SOLUTION INH ×3 (07:19→21:00)
[2024-10-18] MEDS: FLOVENT 110 MCG INHALER 4 PUFF INH ×2 (07:20→21:03)
[2024-10-18] MEDS: VIBRAMYCIN 260 MG IV ×2 (07:34→21:07)
[2024-10-18] MEDS: MIRALAX 17 GRAMS TUBE (07:36)
[2024-10-18] MEDS: LOW STRENGTH ASPIRIN 81 MG TUBE (07:37)
[2024-10-18] MEDS: DIOVAN 20 MG TUBE ×2 (07:37→21:05)
[2024-10-18] MEDS: LOPRESSOR 12.5 MG TUBE (07:37)
[2024-10-18 07:42] LABS: Glucose - Point of Care 132 mg/dl (70-99)
[2024-10-18 08:16] LABS: Urine Albumin Trace (Neg - Trace); Urine Bilirubin Negative (Negative); Urine Character Clear (Clear); Urine Color Yellow; Urine Glucose 2+ (Negative); Urine Ketone Negative (Negative); Urine Leukocyte Negative (Negative); Urine Nitrite Negative (Negative); Urine Occult Blood 1+ (Negative); Urine Urobilinogen Negative (Neg - 1+)
--- NOTE | 2024-10-18 08:26 | W.PN.INTV ---
Today's Communication / Plan
Recommendations
Minimize sedation
Consider transition to CPAP
Follow white count
Discontinue Piedra
Add doxycycline
Continue heparin therapy
Protonix twice daily
Assessment
-
Assessment: 49-year-old F with no known PMHx who presented to OSH at [facility] on 10/13/2024 with several days of SOB, nausea, fatigue and body aches. HPI obtained from medical records as pt is intubated. She had chest pain this past Thursday, but thought
it was gas and it subsided. Her SOB and nausea persisted though. She came to the ER and EKG showed anterolateral ST elevations with Q-waves, with ST elevations in inferior leads with LA-depressions. Ct chest ruled out esophageal tear. Labs
showed an elevated troponin to 2400, WBC 33, platelet 700 and chemistry showed evidence of DKA with acidosis (pH 7 on VBG). She's been having polyuria and polydipsia x 2 weeks as well. She denies a personal or family Hx of diabetes. Of note, she
vomited blood clots on day of ER arrival as well. Stat echo in the ER at [facility] showed depressed LVEF around 35% with severely hypokinetic anteroseptal, anterior, apical segments. Contrast echo showed a mural apical thrombus. She was Dx with a late
presentation anterior SC, and was TRX here to [place] for cardiac intervention. Prior to TRX she was given 325mg ASA and started on heparin gtt. Given a NS bolus and insulin gtt also started.
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
Impression:
#ACS with late presentation anterolateral STEMI
#DKA without history of diabetes -DKA now resolved
#Pseudohyponatremia due to DKA with hyperglycemia - pseudohyponatremia now resolved
#Severe metabolic acidosis -now resolved s/p bicarb drip
#Acute respiratory failure with hypercapnia (undercompensation in the setting of metabolic acidosis) now on mechanical ventilation (intubated for left heart cath on 10/13/2024)
#Left lower lobe pneumonia
#Apical LV mural thrombus (reported from outside hospital echo)
#Leukocytosis
#Anemia with reported bloody emesis at H
#Thrombocytosis (likely reactive) - resolved
#Transaminitis
#Elevated troponin due to ACS as above in the setting of HANNA � peaked at 38.6 on 10/13/2024
#ICM with LVEF: 30-35% without current evidence of left-sided heart failure (PCWP: 12mmHg per [facility] today)
Plan/recommendations:
At this time, patient remains critically ill, mechanical ventilation, ventilator dependent
Secretions seem to be improved over last 24 hours
Minimal wheezing noted
Elevated blood sugars noted, insulin has been adjusted
Remains off fentanyl since morning of 10/18, received multiple boluses of fentanyl 50 mcg overnight
Remains on cefepime. Vancomycin discontinued 10/17
Moving forward
Continue with volume-cycled ventilation, remains on ASV
ABG with adequate ventilation
Would like to minimize sedation, transition to CPAP as able
Wheezing and rhonchi appear to be improved
Continue Xopenex, increase Atrovent to every 6 hours, Flovent
Persistent secretions noted
MSSA infection noted, still positive
Persistent white count
Add doxycycline, continue cefepime
Repeat cultures, send UA
Discontinue Piedra
Reviewed cardiology correspondence
Plan to continue heparin drip for now
Patient received 3 units of blood, presently stable
Remains on aspirin, statin, Coreg
Director Corporate 10/13/2024 reviewed. 100% thrombotic occlusion in mid LAD.
No benefit in opening up LAD lesion, per discussion with cardiology
Echo 10/14/2024 EF 35%, apical thrombus present, PA pressure 35
Maintained on Protonix drip. Changed to twice daily at GI recommendation
Hemoglobin stable
EGD report reviewed
GI has signed off
Trend her leukocytosis
Chest x-ray per my review with mild patchy infiltrate bilaterally
Difficult to differentiate between heart failure and pneumonia
Sputum culture positive for MSSA
Remains on cefepime, doxycycline, started this morning
Adjust as able
Repeat cultures
Blood sugars noted
Off insulin drip at this time
Now receiving high resistance dosing, standing dose increased
Hemoglobin A1c 13.3 on admission
Appreciate input of diabetic PROGRAM SERVICES PLANNER
Follow electrolytes
Follow blood sugars
GI prophylaxis: Remains on Protonix twice daily per GI
DVT prophylaxis: Remains on heparin drip
Updated and mother at bedside
Critical care statement: A total of 34 minutes of critical care time was provided for this patient today. This includes management of unstable vital signs, evaluation of the patient at bedside, reviewing the patient's pertinent medical records
including radiographs, microbiology, laboratory evaluations, and discussion with primary team, consultants, pharmacy, nutrition, physical therapy, case management, charge nurse, critical care nursing, and respiratory therapy.
Data:
Outside Hospital TTE 10/13/2024:
LVEF: 30-35%; Multiple segmental abnormalities exist. Mild eccentric LVH; moderately decreased LV systolic function; grade II diastolic dysfunction, pseudonormal pattern; Laminated mural thrombus of the LV apex suggested on contrast images; normal
RV size and function; Normal LA by volume index and normal RA by area; Mild MR; RAP is 3mmHg with estimated RVSP: 17mmHg. No prior studies available for comparison.
CXR 10/13/2024:
1. Endotracheal tube terminating 1.2 cm proximal to the ramin.
2. Nasogastric tube terminating in the stomach.
3. No radiographic evidence for acute pulmonary edema or pleural effusion.
CXR 10/15/2024: Cannot exclude some left basilar opacification such as subsegmental atelectasis and/or pneumonia.
CXR 10/16/2024: Worsening left basilar pneumonia
Subjective Dataa
Subjective Data
Date of Service:
Date of Service: October 18, 2024
Chief Complaint: Electric Meter Technician Follow Up
Subjective:
Patient remains critically ill. Remains on volume-cycled relation, for some reason received multiple doses of fentanyl through the night for agitation/pain. This morning appears to be comfortable. Secretions seem to be improved according to
nursing this morning. Patient denies chest pain, nausea, abdominal pain
Objective Data
Data Reviewed
Vital Signs / I&O / Oxygen:
Vital Signs
Temp Pulse Resp BP Pulse Ox
99.7 F 88 14 130/80 99
10/18/24 04:53 10/18/24 08:00 10/18/24 08:00 10/18/24 08:00 10/18/24 08:00
Intake and Output
10/17/24 10/18/24 10/19/24
06:59 06:59 06:59
Intake Total 2352.7 / 2493.7 1790.5 / 1860.5 240 / 240
Output Total 2360 / 2360 1835 / 1860 75 / 75
Balance -7.3 / 133.7 -44.5 / 0.5 165 / 165
SaO2 [ASV] 99
SaO2 [A/C] 100
SaO2 99
Physical Exam
General: Comfortable
HEENT: Normocephalic, Anicteric and Other (ETT in place)
Cardiovascular: S1-S2, Regular Rhythm, Murmur (n), Rub (n) and Peripheral Edema (negative)
Respiratory: Wheeze (few), Crackles (few), Rhonchi (few rt), Non-Labored Respirations, Stridor (negative) and ET Tube (Mechanical breath sounds heard bilaterally)
GI: Soft, Non Distended, Non Tender and Normal Bowel Sounds
Neurology: Lethargic (Easily arousable, follows commands. Able to lift head up)
Skin: Warm, Dry, Cyanosis (negative) and Jaundice (negative)
Labs/Micro/Reports
Lab Data
10/18/24 02:49
Laboratory Results
10/17/24 10/17/24 10/18/24
12:57 19:43 02:49
APTT 58.4 H 83.1 H 76.0 H
pH
pCO2
pO2
HCO3
O2 Delivery Level
10/18/24
04:25
APTT
pH 7.48 H
pCO2 29 L
pO2 122 H
HCO3 21.6
O2 Delivery Level Asv 100%/30%
Microbiology
10/15/24 16:09 Endotracheal Respiratory Culture - Preliminary
Staphylococcus aureus
10/15/24 16:09 Endotracheal Gram Stain - Preliminary
10/14/24 00:17 Blood/Venous Blood Culture - Preliminary
No Growth in 4 days- Final report to follow
10/15/24 13:48 Nose MRSA Screen - Final
No Methicillin Resistant Staphylococcus aureus isolated.
10/14/24 13:22 Endotracheal Respiratory Culture - Final
S aureus-Methicillin Sensitive
10/14/24 13:22 Endotracheal Gram Stain - Final
--- NOTE | 2024-10-18 08:35 | PTCARENOTE ---
Pt remains intubated with copious amount of thick ibrahim/blood tinged secretions. PRN sedation as needed. All sedative drips off. Opens eyes to voice, follow simple commands, drifts back to sleep. generalized weakness. Temp 100.1 core. NSR on monitor,
BP stable. Heparin and Protonix gtts as ordered, PTT therapeutic. #[id number], vent settings as ordered. Rhonchi throughout bilaterally. NPO since midnight for ultrasound of ABD in AM. Piedra draining clear yellow urine.
[2024-10-18 09:02] LABS: Vitamin B1, Whole Blood 147 nmol/L (70-180)
[2024-10-18] MEDS: LANTUS SC (09:18)
--- NOTE | 2024-10-18 09:57 | PN.DE.MGMTRT ---
Insulin Management
- -
10/18/2024: Diabetes Management Consult Follow up
Patient presented to OSH at [facility] on 10/13/2024 with several days of SOB, nausea, fatigue and body aches.
EKG in the ER showed anterolateral ST elevations with Q-waves, with ST elevations in inferior leads with RI-depressions. Contrast echo showed a mural apical thrombus and pt was Dx with a late presentation anterior AR, and was TRX to for cardiac
intervention. BMP showed evidence of DKA and pt was started on DKA protocol, later transitioned to glycemic protocol when GAP closed.
Of note, pt denied personal and/or family Hx of diabetes. A1C was 13.3% on admission. Cr 0.8 eGFR >60.
Pt intubated, lightly sedated, unable to interview at this time. and Mom at bedside.
Patient received BID lantus 25 units and novolog standing dose, increased to 10 units Q 6 hours with moderate corrective insulin. Glucose range 239 to 287. Fasting glucose this AM 148.
Pt is NPO, Tube feeds on HOLD this AM for further testing. Will stop AM Lantus and continue HS lantus 25 units.
AM glucose 148, discussed with nurse to hold the Q 6 hour standing novolog dose of 10 unit until tube feeds have resumed. May receive corrective insulin if needed.
Pt is newly dx with T2DM. Will provide glucose monitor and Insulin instructions when medically stable and ready for education.
Diabetes History
- -
Type of Diabetes: 2
Pre-Admission Diabetes Regimen
10/18/24
02:49
Creatinine 0.8
Lab Results
Hemoglobin A1c 13.3 % (4.0-5.6) H 10/13/24 15:55
Insulin Pump Settings
IP Diabetes Regimen
10/17/24 10/17/24 10/17/24
11:55 17:32 23:43
Glucose
POC Glucose 239 H 250 H 270 H
10/18/24 10/18/24 10/18/24
02:49 05:17 07:30
Glucose 244 H
POC Glucose 148 H 132 H
Patient Education
--- NOTE | 2024-10-18 09:59 | W.PN.CARDCBS ---
Today's Communication / Plan
-
Remains on a ventilator
Volume status reasonable and wedge pressure was normal at 12 at the time of catheterization
Continue IV heparin for LV thrombus with eventual change to Eliquis
Change Lopressor to Coreg with reduced ejection fraction
Continue Diovan
Eventual possible Entresto when taking p.o.
Impression / Plan
-
.
Hydroelectric Mechanic: None, seen initially at [facility]
Impression:
Late presentation anterior [place]
Ischemic cardiomopathy LVEF 30-35%
Failed PCI attempt proximal LAD occlusion
Apical mural thrombus of LV
Acute DKA, newly diagnosed diabetes
Erosive esophagitis mid and distal esophagus
Acute on chronic microcytic anemia
HANNA
Acute Transaminitis
Stat echo performed in the emergency department showed moderately depressed LV function with EF around 35-40%. Anteroseptum, anterior, apical segments appear severely hypokinetic. Contrast echo views show mural apical LV thrombus. Mild TR
10/13/24: CTA chest
1. No definite CT evidence for esophageal rupture. No evidence of pneumomediastinum.
2. 1.4 cm ovoid structure interposed between the distal esophagus and aorta. This likely represents a paraesophageal lymph node. A small extraluminal collection from the distal esophagus cannot be entirely excluded. If clinical symptoms persist
consider barium swallow /esophagram, as a follow-up
3. Fatty infiltration of the liver
4. Cholelithiasis
Left and right Cath Oct 13 2024:
HEMODYNAMICS : (mmHg)
RA (m) : 8
RV (s/d,m) : 41/8, 11
PA (s/d, m) : 33/18, 25
PCWP (m) : 12
PA saturation: 73.2% on 40% FiO2
AO saturation: 99.5% on 40% FiO2
RA saturation: 75.1% on 40% FiO2
Cardiac Output : 4.70 L/min by Franny calculation
Cardiac Index : 2.94 L/min/m-2 by Franny calculation
Systemic vascular resistance: 1404 dsc^(-5)
Pulmonary vascular resistance: 2.72 burroughs unit
Heart rate: 109 bpm
AO (s/d) : 111/75
LV pressures were not measured with known left ventricular thrombus on echocardiogram at [facility].
CORONARY FINDINGS
DOMINANCE: Right
LEFT MAIN: The left main artery is a large-caliber vessel, short which gives rise to the left anterior descending artery and the left circumflex artery. There is minimal luminal irregularities.
LEFT ANTERIOR DESCENDING: The left into descending artery is a large-caliber vessel which gives rise to multiple small caliber diagonal branches. There is 100% thrombotic occlusion in the mid LAD with PAUL 0 flow. Proximal LAD has a large burden
of what appears to be organized nonocclusive thrombus, with 95% stenosis.
CIRCUMFLEX: The left circumflex artery is a medium to large caliber vessel which gives rise to 2 major obtuse marginal branches, moderately tortuous, there is minimal luminal irregularities.
RIGHT CORONARY ARTERY: The right coronary artery is a large caliber, dominant, moderately tortuous vessel which is rise to the right posterior descending artery and the right posterolateral system. There is minimal luminal irregularities.
CONCLUSIONS
1. Late presenting anterolateral ST elevation [place] with There is 100% thrombotic occlusion in the mid LAD with PAUL 0 flow. Proximal LAD has a large burden of what appears to be organized nonocclusive thrombus, with 95% stenosis. No significant
improvement in flow despite multiple passes of mechanical aspiration thrombectomy, balloon angioplasty and vasodilators.
2. Normal right and left-sided filling pressures with normal cardiac output.
Impression/plan:
VDRF
Wean vent as per oyster opener
Transferred from [facility] as late presentation anterior STEMI, LVEF 30-35% with LAD territory wall motion abnormality and LV thrombus
R/LHC 10/13/24 with 95% pLAD and 100% mLAD and attempts to restore coronary flow were unsuccessful
Continue medical management of CAD:
Cont ASA 81mg daily, hold on additional anti-platelet agent given transfusion dependent anemia
Cont high intensity statin, Crestor
Change Lopressor to Coreg through tube
Cont Diovan
Ischemic cardiomyopathy
Remains euvolemic, monitor wts closely.
PCWP was 12 mmHg at time of R/LHC
Cont Lopressor and Diovan and eventual consideration to transition to Entresto
Cont to monitor wt which decreased 3 pounds in the past 24-hour
LV apical thrombus:
Continue heparin gtt
Eventual transition to OAC when able
Transfusion depend anemia
Status post 2 units of blood
DKA
HbA1c elevated on admit
Tx as per primary service
Discussed with nursing, and family at bedside including mother and .
CCT: 34 minutes
Progress Note - Hydroelectric Mechanic
Subjective
Date of Service: October 18, 2024
Sedate on the ventilator
Objective
Labs:
10/18/24 02:49
Labs
Hgb 10.2 g/dL (12.0-16.0) L 10/18/24 02:49
Hct 32.0 % (37.0-47.0) L 10/18/24 02:49
Plt Count 295 10^3/uL (130-400) 10/18/24 02:49
PT 18.3 Sec (11.4-14.6) H 10/13/24 17:53
INR 1.50 10/13/24 17:53
APTT 76.0 Sec (23.4-35.0) H 10/18/24 02:49
Sodium 138 mmol/L (135-145) 10/18/24 02:49
Potassium 2.9 mmol/L (3.5-5.1) L 10/18/24 02:49
BUN 12 mg/dl (7-17) 10/18/24 02:49
Creatinine 0.8 mg/dL (0.6-1.0) 10/18/24 02:49
Glucose 244 mg/dl (70-99) H 10/18/24 02:49
Vital Signs and I&O:
Vital Signs
Temp Pulse Resp BP Pulse Ox
100 F 83 15 126/78 98
10/18/24 08:00 10/18/24 09:00 10/18/24 09:00 10/18/24 09:00 10/18/24 09:00
Vital Signs
Temp Pulse Resp BP Pulse Ox
100 F 83 15 126/78 98
10/18/24 08:00 10/18/24 09:00 10/18/24 09:00 10/18/24 09:00 10/18/24 09:00
Intake & Output
10/16/24 10/17/24 10/18/24 10/19/24
06:59 06:59 06:59 06:59
Intake Total 3978.3 / 4088.7 2352.7 / 2493.7 1790.5 / 1860.5 530 / 530
Output Total 2470 / 2470 2360 / 2360 1835 / 1860 75 / 75
Balance 1508.3 / 1618.7 -7.3 / 133.7 -44.5 / 0.5 455 / 455
Physical Exam
Physical Exam
General: Sedate on the ventilator
Neck: Supple, no JVD, HJR, carotids +2 B/L, no bruits bilaterally.
Heart: Non displaced PMI, RRR, no murmurs, No S3, S4, no rubs.
Lungs: Scattered rhonchi
Extremities: No clubbing, cyanosis or edema bilaterally.
Neuro: Sedate on the ventilator
[2024-10-18 10:15] LABS: Urine Mucus Moderate
[2024-10-18 10:16] LABS: Urine Amorphous Seen; Urine Squamous Cell 0-2 /LPF (Few)
[2024-10-18 10:17] LABS: Urine Granular Cast 0-2 /LPF (0)
[2024-10-18 10:18] LABS: Urine Red Blood Cell 0-2 /HPF (0-2); Urine White Cell 0-2 /HPF (0-5)
[2024-10-18 11:55] LABS: Glucose - Point of Care 133 mg/dl (70-99)
[2024-10-18] MEDS: HEPARIN 25000 UNITS/250 ML IV (11:58)
--- NOTE | 2024-10-18 12:30 | PTCARENOTE ---
Assessment unchanged. Pt continues to be lethargic but follows commands. Piedra removed and purwick applied.
[2024-10-18 13:32] LABS: Blood Urea Nitrogen 13 mg/dl (7-17); Carbon Dioxide 23 mmol/L (22-30); Chloride 108 mmol/L (98-107); Estimated Creatinine Clearance 90 ml/min; Glucose 134 mg/dl (70-99); Potassium 3.5 mmol/L (3.5-5.1); Sodium 138 mmol/L (135-145); eGFR > 60.00
[2024-10-18] MEDS: KCL ELIXIR 40 MEQ TUBE (14:23)
--- NOTE | 2024-10-18 15:18 | W.PN.HOSP.TC ---
Today's Communication/Plan
-
possible attempt at PS today
pradhan dc
add doxy
f/u cultures, cont abx
hep ggt
Assessment / Plan
Assessment / Plan
Gen: NAD, NCAT
CV: continues to remain RRR, +S1/S2, no m/r/g.
Resp: remains CTAB anteriorly, no rales, wheezes, or rhonchi.
Abd: continues to remain +BS, soft, NT, ND
Skin: No rashes.
Neuro: sedated
Psych: calm
10/14/24 13:22 Endotracheal Respiratory Culture - Final
S aureus-Methicillin Sensitive
10/14/24 13:22 Endotracheal Gram Stain - Final
10/14/24 00:17 Blood/Venous Blood Culture - Preliminary
No Growth in 48 hours- Final report to follow
10/14/24 12:07 Nasal Swab Influenza Types A & B (DOREEN) - Final
Negative for Influenza A & B, NAAT
Negative results must be combined with clinical observations
and patient history.
Nucleic Acid Amplification test (NAAT)performed on the
[employer] NOW platform.
[facility] 10/13/24:
1. Late presenting anterolateral ST elevation [place] with 100% thrombotic occlusion in the mid LAD with PAUL 0 flow. Proximal LAD has a large burden of what appears to be organized nonocclusive thrombus, with 95% stenosis. No significant improvement
in flow despite multiple passes of mechanical aspiration thrombectomy, balloon angioplasty and vasodilators.
2. Normal right and left-sided filling pressures with normal cardiac output.
Bedside EGD 10/14/24: LA Grade C erosive esophagitis in the mid and distal
esophagus with no bleeding.
- Few, small linear and superficial, well-healed
esophageal ulcers with no bleeding and no stigmata of
recent bleeding found in the distal esophagus.
- Otherwise normal proximal esophagus.
- Mild amount of nasogastric tube trauma present in
stomach.
- Otherwise, normal stomach on direct and retroflexion
views
- Normal examined duodenum up to the third portion
- The examination was otherwise normal without any old
or fresh blood or other bleeding lesions throughout
the examined upper GI tract.
- No specimens collected.
#Acute hypoxic respiratory failure
� Secondary to left lower lobe pneumonia
� Weaned off sedation
� Maintain ASV, pressure support once more awake; copious secretions more than likely preclude extubation at this time
-Will likely attempt pressure support today if possible
Acute anterolateral STEMI:
-transfer from [facility]
-RHC/C 10/13/24 as above, 95% prox LAD occlusion, 100% mid LAD occlusion, unable to restore flow
-cont heparin gtt, transition to OAC once extubated and tolerating PO
-cont ASA/statin/BB
-trop 38.6, trended down
-cards following
-currently intubated (ACMV 400/18/5/35%) sedated with propofol/fentanyl
ICM/Acute HFrEF:
-Echo: LVEF 30-35% with LAD territory wall motion abnormality and LV thrombus
-on heparin gtt
-cont BB/ARB
#LV apical thrombus:
Continue heparin gtt for now
Eventual transition to OAC when stable
#Sepsis
#LLL Pneumonia
-currently on Cefepime; add doxy;
-Flu/COVID NEG
-follow Cxs, as above, resp Cx with MSSA
-dc vanc, mrsa negative
-CXR 10/15/24: Cannot exclude some left basilar opacification such as subsegmental atelectasis and/or pneumonia.
-fever is possibly due to PNA (CXR is equivocal) and therefore this would qualify as sepsis due to LLL PNA
-f/u cultures
Acute DKA:
-Switch to subcutaneous insulin
-note, lactic acid normal
Acute blood loss anemia:
-bedside EGD above and notable for erosive esophagitis, well-healed esophageal ulcers without bleeding or stigmata of recent bleeding
-cont PPI gtt x 72 hours
-s/p 3U pRBCs
-trend Hb
-appreciate GI who has signed off
#Transaminitis
� I suspect secondary to antibiotics versus congestive hepatopathy
� Continue to monitor trend
� Complete abdominal ultrasound
Other problems:
HANNA: resolved with IVFs
Hypokalemia, replete
Hypophosphatemia, replete
Hypocalcemia, replete
Obesity due to excess calories
FULL/Heparin gtt
Total critical care time spent = 40 min
Anticipated Discharge: > 48 hours
Subjective/Interval History
-
Date of Service: October 18, 2024
lethargic, copious secretions
Objective Data
-
Labs:
Laboratory Results
10/18/24 10/18/24 10/18/24
02:49 04:25 12:37
WBC 17.5 H
Hgb 10.2 L
Hct 32.0 L
Plt Count 295
APTT 76.0 H
HCO3 21.6
Sodium 138 138
Potassium 2.9 L 3.5
Chloride 107 108 H
Carbon Dioxide 23 23
BUN 12 13
Creatinine 0.8 0.7
Glucose 244 H 134 H
Calcium 7.7 L 8.0 L
Vital Signs:
Vital Signs
Temp Pulse Resp BP Pulse Ox
100.1 F 96 19 129/72 98
10/18/24 11:16 10/18/24 15:00 10/18/24 15:00 10/18/24 15:00 10/18/24 15:16
I&O
10/17/24 10/18/24 10/19/24
06:59 06:59 06:59
Intake Total 2352.7 / 2493.7 1790.5 / 1860.5 910 / 910
Output Total 2360 / 2360 1835 / 1860 190 / 190
Balance -7.3 / 133.7 -44.5 / 0.5 720 / 720
Review of Systems
-
History Source: Patient
All other systems: Not reviewed unless documented
Data Reviewed
-
Diagnostic Radiology: Report Reviewed by me
Labs: Labs Reviewed by me
--- NOTE | 2024-10-18 16:02 | PTCARENOTE ---
Due to void met. CPAP trial continues. Pt remains lethargic, RASS-2. Following commands but drifts back to sleep.
--- NOTE | 2024-10-18 16:52 | W.PN.UPDATE ---
Update Note
Progress Note Update
Patient remains off sedation.
Transition to ASV 80%, tolerated throughout the day
Transition to CPAP, tolerating in the p.m.
Patient does appear to be more awake, able to lift head
Repeat sputum culture, blood culture pending, UA negative
Continue with CPAP mode 01/26
Maintained through the night. Would like to avoid sedation, minimize fentanyl, only use for pain
Discontinue drip, decrease dose to 25 mcg
ABG, chest x-ray in the a.m.
Hope for extubation tomorrow
Reviewed at length with critical care nursing, respiratory care, family members at bedside
[2024-10-18] MEDS: CRESTOR 20 MG TUBE (17:24)
[2024-10-18] MEDS: NOVOLOG FLEXPEN 10 UNITS SC (17:44)
[2024-10-18] MEDS: NOVOLOG FLEXPEN-HIGH RESISTANCE 4 UNITS SC (17:44)
[2024-10-18 17:53] LABS: Glucose - Point of Care 239 mg/dl (70-99)
--- NOTE | 2024-10-18 20:15 | PTCARENOTE ---
On assessment pt intubated with no sedation, PRN meds if needed see MAR, follows simple commands, generalized weakness, SR on the monitor, hep gtt infusing per orders, pt on CPAP mode on the vent and tolerating at this time, thick moderate ibrahim
secretions, purwick in place and pt has voided, rectal trumpet in place for diarrhea.
[2024-10-18] MEDS: COREG 3.125 MG TUBE (21:06)
[2024-10-18] MEDS: PROTONIX IV 40 MG IV (21:06)
[2024-10-18] MEDS: NSS (PRESERVATIVE FREE) 10 ML IV (21:06)
[2024-10-18] MEDS: LANTUS 0.25 UNITS SC (21:07)
[2024-10-18 21:08] LABS: Glucose - Point of Care 230 mg/dl (70-99)
[2024-10-18 23:50] LABS: Glucose - Point of Care 236 mg/dl (70-99)
[2024-10-19] VITALS (12 sets, daily range): BP systolic 136–152; BP diastolic 86–100; BMI 30.6
--- NOTE | 2024-10-19 | PTCARENOTE ---
pt tolerating CPAP settings, continues with increased ETT secretions, thick/ibrahim
[2024-10-19] MEDS: NOVOLOG FLEXPEN 10 UNITS SC ×2 (00:11→05:37)
[2024-10-19] MEDS: NOVOLOG FLEXPEN-HIGH RESISTANCE 4 UNITS SC ×2 (00:11→05:37)
[2024-10-19] MEDS: STERILE WATER FOR INJECTION 10 ML IV (02:30)
[2024-10-19] MEDS: MAXIPIME 2000 MG IV (02:30)
[2024-10-19 04:18] LABS: APTT 71.7 Sec (23.4-35.0)
[2024-10-19 04:29] LABS: Hematocrit 34.5 % (37.0-47.0); Hemoglobin 10.5 g/dL (12.0-16.0); Mean Corp Hgb Conc. 30.4 g/dL (33.0-37.0); Mean Corpuscular Hgb 21.9 pg (27.0-31.0); Mean Platelet Volume 9.5 fL (7.4-10.4); Platelet Count 349 10^3/uL (130-400); Red Blood Cell Count 4.79 10^6/uL (4.20-5.40); Red Cell Dist. Width 24.8 % (11.5-14.5); White Blood Cell Count 17.9 10^3/uL (4.8-10.8)
[2024-10-19 04:46] LABS: B.E. -2.9 mmol/L; HCO3 19.7 mmol/L (21-28); O2 Saturation % 98.3 % (94-98); PCO2 27 mmHg (32-35); PO2 82 mmHg (83-108); pH 7.47 (7.35-7.45)
[2024-10-19 04:57] LABS: O2 Therapy 30% CPAP 5/8
[2024-10-19 05:00] LABS: Blood Urea Nitrogen 15 mg/dl (7-17); Calcium 7.9 mg/dl (8.4-10.2); Carbon Dioxide 23 mmol/L (22-30); Chloride 107 mmol/L (98-107); Estimated Creatinine Clearance 91 ml/min; Glucose 224 mg/dl (70-99); Magnesium 2.2 mg/dl (1.6-2.3); Potassium 3.6 mmol/L (3.5-5.1); Sodium 138 mmol/L (135-145); Triglycerides 161 mg/dl (10-149); eGFR > 60.00
--- NOTE | 2024-10-19 05:28 | PTCARENOTE ---
pt nods appropriately, denies pain, remains on CPAP settings, pulse ox 97%
[2024-10-19 05:46] LABS: Glucose - Point of Care 247 mg/dl (70-99)
[2024-10-19] MEDS: FLOVENT 110 MCG INHALER 4 PUFF INH (07:18)
[2024-10-19] MEDS: ATROVENT NEBULES 0.5 MG INH (07:18)
[2024-10-19] MEDS: XOPENEX 1.25 MG INHALANT SOLUTION INH (07:23)
[2024-10-19] MEDS: NSS (PRESERVATIVE FREE) 10 ML IV (07:29)
[2024-10-19] MEDS: PROTONIX IV 40 MG IV (07:29)
[2024-10-19] MEDS: DIOVAN 20 MG TUBE (07:29)
[2024-10-19] MEDS: MIRALAX 17 GRAMS TUBE (07:29)
[2024-10-19] MEDS: COREG 3.125 MG TUBE (07:29)
[2024-10-19] MEDS: LOW STRENGTH ASPIRIN 81 MG TUBE (07:29)
[2024-10-19] MEDS: VIBRAMYCIN 260 MG IV (07:30)
--- NOTE | 2024-10-19 07:46 | W.PN.INTV ---
Today's Communication / Plan
Recommendations
Acute change on neuroexam noted
Head CT with large right occipital stroke, nonhemorrhagic
Plan for transfer to neurosurgery critical care to [address]
Reviewed neurology, neurosurgery
Blood pressure adequate at this time, systolic pressure 130s to 140s/80s to 90s
Continue to follow blood sugars
Continue heparin therapy, no bolus, remains therapeutic
Assessment
-
Assessment: 49-year-old F with no known PMHx who presented to OSH at [facility] on 10/13/2024 with several days of SOB, nausea, fatigue and body aches. HPI obtained from medical records as pt is intubated. She had chest pain this past Thursday, but thought
it was gas and it subsided. Her SOB and nausea persisted though. She came to the ER and EKG showed anterolateral ST elevations with Q-waves, with ST elevations in inferior leads with GA-depressions. Ct chest ruled out esophageal tear. Labs
showed an elevated troponin to 2400, WBC 33, platelet 700 and chemistry showed evidence of DKA with acidosis (pH 7 on VBG). She's been having polyuria and polydipsia x 2 weeks as well. She denies a personal or family Hx of diabetes. Of note, she
vomited blood clots on day of ER arrival as well. Stat echo in the ER at [facility] showed depressed LVEF around 35% with severely hypokinetic anteroseptal, anterior, apical segments. Contrast echo showed a mural apical thrombus. She was Dx with a late
presentation anterior NM, and was TRX here to [place] for cardiac intervention. Prior to TRX she was given 325mg ASA and started on heparin gtt. Given a NS bolus and insulin gtt also started.
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
Impression:
#ACS with late presentation anterolateral STEMI
#DKA without history of diabetes -DKA now resolved
#Pseudohyponatremia due to DKA with hyperglycemia - pseudohyponatremia now resolved
#Severe metabolic acidosis -now resolved s/p bicarb drip
#Acute respiratory failure with hypercapnia (undercompensation in the setting of metabolic acidosis) now on mechanical ventilation (intubated for left heart cath on 10/13/2024)
#Left lower lobe pneumonia
#Apical LV mural thrombus (reported from outside hospital echo)
#Leukocytosis
#Anemia with reported bloody emesis at [facility]
#Thrombocytosis (likely reactive) - resolved
#Transaminitis
#Elevated troponin due to ACS as above in the setting of HANNA � peaked at 38.6 on 10/13/2024
#ICM with LVEF: 30-35% without current evidence of left-sided heart failure (PCWP: 12mmHg per [facility] today)
Plan/recommendations:
At this time, patient remains critically ill, mechanical ventilation, ventilator dependent
I am concerned about the change in her neurostatus
Yesterday in the a.m. in the p.m., she was squeezing hands, lifting the knee up on both sides, and was able to look to the right ( was sitting on the right side and I examined on the right side)
However this morning, she has left gaze preference (does not cross the midline to the right), weaker on the left side, unable to lift the left leg
Blood pressures 130s to 140s over 80s to 90s
This morning,, systolic pressure 141 diastolic pressure 107
Heparin therapeutic, last PTT 72 as of this morning
Stat head CT was ordered
Heparin was held during transportation, resumed following completion of CT imaging
Head CT showed nonhemorrhagic large right cerebellar stroke, accompanying edema and mass effect upon the fourth ventricle
Neurology was consulted and evaluated
Neurosurgery consulted and evaluated
Repeat imaging later in the day
Reviewed at length with by phone and again at the bedside including mother at bedside
Given acute findings, will need to transfer to tertiary care center, neurology critical care
Remains off fentanyl since morning of 10/18
Remains on cefepime, doxycycline
Low-grade fever continues
Piedra catheter discontinued 10/18
UA unremarkable
Hold on plans for extubation
Transition back to CPAP 01/26
ABG this morning 7.47/ on CPAP 01/26, 30%
Chest x-ray of the morning with improved bilateral patchy infiltrates, ET tube appropriate
Wheezing and rhonchi appear to be improved
Continue Xopenex, increase Atrovent to every 6 hours, Flovent
Reviewed cardiology correspondence
Plan to continue heparin drip for now
Patient has been therapeutic since hospital stay
She did receive 3 units of blood, stable overall
Remains on aspirin, statin, Coreg
[employer]velties Sales Representative 10/13/2024 reviewed. 100% thrombotic occlusion in mid LAD.
No benefit in opening up LAD lesion, per discussion with cardiology
Echo 10/14/2024 EF 35%, apical thrombus present, PA pressure 35
Unfortunately, likely had embolic event, remains on heparin for now, no bolus
Plans for transfer to neurosurgery critical care at [place]
Maintained on Protonix changed to twice daily 10/18
Hemoglobin stable
EGD report reviewed
Received 3 units of blood
GI has signed off
Trend her leukocytosis
Chest x-ray per my review with mild patchy infiltrate bilaterally, improved
Difficult to differentiate between heart failure and pneumonia, favor the latter, PCWP 12 on recent catheterization
Sputum culture positive for MSSA
Remains on cefepime, doxycycline
Adjust as able
Repeat cultures
Blood sugars noted
Off insulin drip at this time
Now receiving high resistance dosing, standing dose increased
Hemoglobin A1c 13.3 on admission
Blood sugars this morning 224
admits to no prior history of diabetes, has not followed up preadmission
GI prophylaxis: Remains on Protonix twice daily per GI
DVT prophylaxis: Remains on heparin drip, no bolus
Updated and mother at bedside and by phone earlier this morning
Reviewed at length likely embolic event
Reviewed possibility of progressive stroke, progressive into hemorrhagic stroke, swelling of the brain and need for transfer
confirmed that patient was fine throughout yesterday during his visit
Typically I examine the patient on her right side and she was always able to turn her eyes towards me. This morning she was not.
Reviewed change in exam. 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
Critical care statement: A total of 76 minutes of critical care time was provided for this patient today. This includes management of unstable vital signs, evaluation of the patient at bedside, reviewing the patient's pertinent medical records
including radiographs, microbiology, laboratory evaluations, and discussion with primary team, consultants, pharmacy, nutrition, physical therapy, case management, charge nurse, critical care nursing, and respiratory therapy.
Data:
Outside Hospital TTE 10/13/2024:
LVEF: 30-35%; Multiple segmental abnormalities exist. Mild eccentric LVH; moderately decreased LV systolic function; grade II diastolic dysfunction, pseudonormal pattern; Laminated mural thrombus of the LV apex suggested on contrast images; normal
RV size and function; Normal LA by volume index and normal RA by area; Mild MR; RAP is 3mmHg with estimated RVSP: 17mmHg. No prior studies available for comparison.
CXR 10/13/2024:
1. Endotracheal tube terminating 1.2 cm proximal to the ramin.
2. Nasogastric tube terminating in the stomach.
3. No radiographic evidence for acute pulmonary edema or pleural effusion.
CXR 10/15/2024: Cannot exclude some left basilar opacification such as subsegmental atelectasis and/or pneumonia.
CXR 10/16/2024: Worsening left basilar pneumonia
Subjective Dataa
Subjective Data
Date of Service:
Date of Service: October 19, 2024
Chief Complaint: Obstetrics Gyn Follow Up
Subjective:
Patient remains critically ill, no major events overnight. Low-grade fever noted. Patient has been on CPAP since yesterday, 01/26. Adequate oxygenation, ventilation. Has not required any sedation, fentanyl, off for about 24 hours. Patient opens
eyes, lift head, nods appropriately
Objective Data
Data Reviewed
Vital Signs / I&O / Oxygen:
Vital Signs
Temp Pulse Resp BP Pulse Ox
97.8 F 90 18 144/100 99
10/19/24 07:37 10/19/24 06:00 10/19/24 06:00 10/19/24 06:00 10/19/24 07:25
Intake and Output
10/18/24 10/19/24 10/20/24
06:59 06:59 06:59
Intake Total 1790.5 / 1860.5 2130 / 2130
Output Total 1834 / 1859 1015 / 1015
Balance -44.5 / 0.5 1116 / 1116
SaO2 [CPAP] 98
SaO2 [ASV] 98
SaO2 [A/C] 100
SaO2 99
Physical Exam
General: Comfortable
HEENT: Normocephalic, Anicteric and Other (ETT in place)
Cardiovascular: S1-S2, Regular Rhythm, Murmur (n), Rub (n) and Peripheral Edema (negative)
Respiratory: Wheeze (few), Crackles (few), Rhonchi (few rt), Non-Labored Respirations, Stridor (negative) and ET Tube (Mechanical breath sounds heard bilaterally)
GI: Soft, Non Distended, Non Tender and Normal Bowel Sounds
Neurology: Lethargic (Arousable, lifts head. Squeezes hand on the right side, lifts right leg. However wiggles toes on the left but does not lift the leg up, has minimal level glass forming machine operator on the left. ), Other (Has a left gaze preference) and Other (Pupils
equal and reactive)
Skin: Warm, Dry, Cyanosis (negative) and Jaundice (negative)
Labs/Micro/Reports
Lab Data
10/19/24 03:47
10/19/24 03:47
Laboratory Results
10/19/24 10/19/24
03:47 04:39
APTT 71.7 H
pH 7.47 H
pCO2 27 L
pO2 82 L
HCO3 19.7 L
O2 Delivery Level 30% cpap 01/26
Microbiology
10/18/24 06:40 Blood/Venous Blood Culture - Preliminary
No Growth in 24 hours- Final report to follow
10/14/24 00:17 Blood/Venous Blood Culture - Final
No Growth - Final Report
10/15/24 16:09 Endotracheal Respiratory Culture - Final
S aureus-Methicillin Sensitive
10/15/24 16:09 Endotracheal Gram Stain - Final
10/18/24 06:40 Tracheal Aspirate Gram Stain - Preliminary
10/15/24 13:48 Nose MRSA Screen - Final
No Methicillin Resistant Staphylococcus aureus isolated.
10/14/24 13:22 Endotracheal Respiratory Culture - Final
S aureus-Methicillin Sensitive
10/14/24 13:22 Endotracheal Gram Stain - Final
--- NOTE | 2024-10-19 08:25 | CON.NEURO ---
Consultation
Order
Date of Consultation: 10/19/24
Requesting Provider: Angeles King MD
Reason for Consult: Left-sided weakness
Neurology Consultation Note.
HPI: This is a 49-year-old woman who transferred to [facility] from [facility] on 10/13/2024 with ACS and DKA.
Neurology consultation was requested for an evaluation and management of left-sided hemiparesis.
Ms. Osborn was noted to be moving her left side less than the right earlier today during critical care rounds.
According to patient's she was able to move her left side around 2:45 pm on 10/18/2024.
PDMP:none
Labs: Hemoglobin A1c�13.3, WBC�17.9, hemoglobin�10.5, normal platelets,
LDL 70
CT head wo contrast(10/19/24) large right cerebellar infarct with mass effect upon the fourth ventricle/mid brain/flavio with findings suggesting accompanying mild obstructive type hydrocephalus.
PMH: CAD(failed PCI attempt proximal LAD occlusion, intramural thrombus), BMI 30
PSH: 2 C-sections
SH: , has 3 children
FH: Mother�DM
All:NKDA
ROS: Unable due to intubation
General: Intubated, off sedation. Restrained. Generalized edema
Cardio: Regular rate and rhythm without murmur. Extremities are without cyanosis or edema.
Neuro:
Mental Status: Awakens to tactile stimuli. Follows simple requests (shows 2 fingers thumbs up, increased processing time.
Cranial Nerves: Left gaze preference. Pupils are 3 mm, reactive. Does not cross midline BTT BL. ation. No ptosis. No nystagmus. Hearing is preserved AU.
Motor: Normal bulk and tone. No pronator or arm drift. Strength 5/5 throughout. No clonus.
Reflexes: Limited exam due to body habitus. No clonus at the ankle
Sensory: grimaces to noxious stimuli bilaterally
Coordination: No tremors myoclonic movements.
Gait: Unable.
Assessment and Plan:
I. Acute R PICA/SCA stroke with mass effect upon the fourth ventricle/mid brain/flavoi. Likely etiology�embolic.
II. Mild obstructive type hydrocephalus
III. Encephalopathy (vascular, metabolic)
-STAT transfer for EVD/occipital craniotomy given the lack of the above capacity at [facility]
-STAT CTA head/neck to rule out basilar artery thrombosis
-ASA 81 mg QD
-No oral contraceptives
-Thrombophilia workup
-DVT prophylaxis.
-The case was discussed with neurosurgery, critical care as well as patient's mother and spouse present at baseline
I personally reviewed all radiology and labs along with past medical records pertinent to current medical problems. Total time spent in patient care is 60 minutes.
Thank you for allowing us to participate in the care of this patient. Please do not hesitate to contact us with any questions or concerns.
Subjective/Objective
Subjective Data
Date of Service: October 19, 2024
Objective Data
Vital Signs
Temp Pulse Resp BP Pulse Ox
36.6 C 90 18 144/100 99
10/19/24 07:37 10/19/24 06:00 10/19/24 06:00 10/19/24 06:00 10/19/24 07:25
Lab Results
10/19/24 03:47
10/19/24 03:47
PT 18.3 Sec (11.4-14.6) H 10/13/24 17:53
INR 1.50 10/13/24 17:53
APTT 71.7 Sec (23.4-35.0) H 10/19/24 03:47
Sodium 138 mmol/L (135-145) 10/19/24 03:47
Potassium 3.6 mmol/L (3.5-5.1) 10/19/24 03:47
BUN 15 mg/dl (7-17) 10/19/24 03:47
Glucose 224 mg/dl (70-99) H 10/19/24 03:47
Calcium 7.9 mg/dl (8.4-10.2) L 10/19/24 03:47
Phosphorus 2.1 mg/dl (2.5-4.5) L 10/17/24 03:40
Pdu-J-Sjqngctuxbu Pept 3640 pg/ml 10/17/24 03:40
LDL Cholesterol, Calc 70 mg/dl 10/14/24 06:36
Whole Bld Vitamin B1 147 nmol/L (70-180) 10/15/24 08:24
Vitamin B12 856 pg/ml (239-931) 10/14/24 06:36
Patient Allergies
No Known Allergies Allergy (Unverified 10/13/24 15:08)
Medications
-
Active Medications
Generic Name Dose Route Start Last Admin
Trade Name Freq PRN Reason Stop Dose Admin
Acetaminophen 650 mg 10/14/24 23:36 10/18/24 01:08
Acetaminophen (Oral Solution) 650 Mg/20.3 Ml Cup PO 11/11/24 23:35 650 mg
Q4HPRN PRN Administration
temp >100.3/mild pain
Aspirin 81 mg 10/14/24 11:00 10/19/24 07:29
Aspirin 81 Mg Chewable Tablet TUBE 11/11/24 10:59 81 mg
DAILY MORALES Administration
Carvedilol 3.125 mg 10/18/24 20:00 10/19/24 07:29
Carvedilol 3.125 Mg Tablet TUBE 11/15/24 19:59 3.125 mg
BID MORALES Administration
Cefepime HCl 2,000 mg 10/15/24 10:00 10/19/24 02:30
Cefepime Hcl 2,000 Mg/12.5 Ml Vial IV 2,000 mg
Q8H MORALES Administration
Dextrose 12.5 grams 10/15/24 10:27
Dextrose 50% (0.5 Grams/Ml) 50 Ml Syringe IV 11/12/24 10:26
[id number] PRN
BLOOD GLUCOSE < 70
Fentanyl Citrate 25 mcg 10/18/24 16:08
Fentanyl (50 Mcg/Ml) 100 Mcg/2 Ml Ampul IV 10/27/24 15:15
[id number] PRN
see protocol
Protocol
Fluticasone Propionate 4 puff 10/17/24 13:00 10/19/24 07:18
Fluticasone 110mcg Inhaler INH 11/14/24 12:59 4 puff
R BID MORALES Administration
Protocol
Heparin Sodium 25,000 units in 250 mls @ 0 mls/hr 10/14/24 03:00 10/18/24 11:58
Heparin 49700 Units/250 Ml IV 250 mls
PER PROTOCOL MORALES Administration
Protocol
Per Protocol
Doxycycline Hyclate 100 mg/ 260 mls @ 260 mls/hr 10/18/24 20:00 10/19/24 07:30
Sodium Chloride IV 260 mls
Q12H MORALES Administration
Insulin Glargine 30 units/ 0.3 mls @ 0 mls/hr 10/19/24 22:00
Device SC 11/16/24 21:59
HS MORALES
As Directed
Insulin Aspart 0 units 10/18/24 00:00 10/19/24 05:37
Insulin Aspart High Resistance 300 Units/3 Ml Pen.Injctr SC 11/15/24 00:00 4 units
Q6 MORALES Administration
Protocol
Insulin Aspart 15 units 10/19/24 12:00
Insulin Aspart (100 Units/Ml) 3 Ml Flexpen SC 11/16/24 11:59
Q6 MORALES
Ipratropium [place] 0.5 mg 10/17/24 13:00 10/19/24 07:18
Ipratropium Nebs 0.5 Mg/2.5 Ml Ampul INH 0.5 mg
R QID MORALES Administration
Protocol
Levalbuterol HCl 1.25 mg 10/15/24 14:00 10/19/24 07:23
Levalbuterol 1.25 Mg/3 Ml Ampul INH 1.25 mg
R TID MORALES Administration
Protocol
Pantoprazole Sodium 40 mg 10/18/24 20:00 10/19/24 07:29
Pantoprazole Sodium 40 Mg/10 Ml Vial IV 11/15/24 19:59 40 mg
BID MORALES Administration
Polyethylene Glycol 17 grams 10/14/24 08:00 10/19/24 07:29
Polyethylene Glycol Powder 17 Grams Packet TUBE 11/11/24 07:59 17 grams
DAILY MORALES Administration
Rosuvastatin Calcium 20 mg 10/14/24 18:00 10/18/24 17:24
Rosuvastatin (Crestor) 20 Mg Tablet TUBE 11/11/24 17:59 20 mg
QPM MORALES Administration
Sodium Chloride 0 flush 10/13/24 18:00
Sodium Chloride 0.9% (Flush) Syringe IV 11/10/24 17:59
PER PROTOCOL MORALES
Sodium Chloride 10 ml 10/18/24 20:00 10/19/24 07:29
Sodium Chloride 0.9% (Preservative Free) 10 Ml Vial IV 11/15/24 19:59 10 ml
BID MORALES Administration
Sterile Water 10 ml 10/15/24 10:00 10/19/24 02:30
Sterile Water For Injection 10 Ml Vial IV 11/12/24 09:59 10 ml
Q8H MORALES Administration
Valsartan 20 mg 10/14/24 20:00 10/19/24 07:29
Valsartan 40 Mg Tablet TUBE 11/11/24 19:59 20 mg
BID MORALES Administration
Home Medications
�Medication �Instructions �Recorded
cyclobenzaprine 10 mg tablet 10 mg PO HS 10/13/24
ibuprofen 600 mg tablet 600 mg PO TID PRN pain 10/13/24
norgestimate 0.18 mg/0.215 mg/0.25 1 tab PO DAILY 10/13/24
mg-ethinyl estradiol 25 mcg tablet
Vital Signs and Labs
-
Vital Signs and Labs:
Vital Signs
Temp Pulse Resp BP Pulse Ox
36.6 C 87 21 139/89 99
10/19/24 07:37 10/19/24 09:56 10/19/24 09:56 10/19/24 10:00 10/19/24 09:56
Lab Results
10/19/24 03:47
10/19/24 03:47
PT 18.3 Sec (11.4-14.6) H 10/13/24 17:53
INR 1.50 10/13/24 17:53
APTT Cancelled 10/19/24 10:30
Sodium 138 mmol/L (135-145) 10/19/24 03:47
Potassium 3.6 mmol/L (3.5-5.1) 10/19/24 03:47
BUN 15 mg/dl (7-17) 10/19/24 03:47
Glucose 224 mg/dl (70-99) H 10/19/24 03:47
Calcium 7.9 mg/dl (8.4-10.2) L 10/19/24 03:47
Phosphorus 2.1 mg/dl (2.5-4.5) L 10/17/24 03:40
Wak-T-Dqvrtweiuus Pept 3640 pg/ml 10/17/24 03:40
LDL Cholesterol, Calc 70 mg/dl 10/14/24 06:36
Whole Bld Vitamin B1 147 nmol/L (70-180) 10/15/24 08:24
Vitamin B12 856 pg/ml (239-931) 10/14/24 06:36
Home Medications
-
Home Medications
cyclobenzaprine 10 mg tablet 10 mg PO HS 10/13/24
ibuprofen 600 mg tablet 600 mg PO TID PRN pain 10/13/24
norgestimate 0.18 mg/0.215 mg/0.25 mg-ethinyl estradiol 25 mcg tablet 1 tab PO DAILY 10/13/24
--- NOTE | 2024-10-19 09:18 | W.PN.CARDCBS ---
Today's Communication / Plan
-
Transfer to [place] with acute right cerebellar infarct on heparin
Impression / Plan
-
.
Directory Assistance Operator: None, seen initially at [facility]
Impression:
Acute right cerebellar infarct
VDRF
Late presentation anterior CT
Ischemic cardiomopathy LVEF 30-35%
Failed PCI attempt proximal LAD occlusion
Apical mural thrombus of LV
Acute DKA, newly diagnosed diabetes
Erosive esophagitis mid and distal esophagus
Acute on chronic microcytic anemia
HANNA
Acute Transaminitis
Stat echo performed in the emergency department showed moderately depressed LV function with EF around 35-40%. Anteroseptum, anterior, apical segments appear severely hypokinetic. Contrast echo views show mural apical LV thrombus. Mild TR
10/13/24: CTA chest
1. No definite CT evidence for esophageal rupture. No evidence of pneumomediastinum.
2. 1.4 cm ovoid structure interposed between the distal esophagus and aorta. This likely represents a paraesophageal lymph node. A small extraluminal collection from the distal esophagus cannot be entirely excluded. If clinical symptoms persist
consider barium swallow /esophagram, as a follow-up
3. Fatty infiltration of the liver
4. Cholelithiasis
Left and right Cath Oct 13 2024:
HEMODYNAMICS : (mmHg)
RA (m) : 8
RV (s/d,m) : 41/8, 11
PA (s/d, m) : 33/18, 25
PCWP (m) : 12
PA saturation: 73.2% on 40% FiO2
AO saturation: 99.5% on 40% FiO2
RA saturation: 75.1% on 40% FiO2
Cardiac Output : 4.70 L/min by Franny calculation
Cardiac Index : 2.94 L/min/m-2 by Franny calculation
Systemic vascular resistance: 1404 dsc^(-5)
Pulmonary vascular resistance: 2.72 burroughs unit
Heart rate: 109 bpm
AO (s/d) : 111/75
LV pressures were not measured with known left ventricular thrombus on echocardiogram at [facility].
CORONARY FINDINGS
DOMINANCE: Right
LEFT MAIN: The left main artery is a large-caliber vessel, short which gives rise to the left anterior descending artery and the left circumflex artery. There is minimal luminal irregularities.
LEFT ANTERIOR DESCENDING: The left into descending artery is a large-caliber vessel which gives rise to multiple small caliber diagonal branches. There is 100% thrombotic occlusion in the mid LAD with PAUL 0 flow. Proximal LAD has a large burden
of what appears to be organized nonocclusive thrombus, with 95% stenosis.
CIRCUMFLEX: The left circumflex artery is a medium to large caliber vessel which gives rise to 2 major obtuse marginal branches, moderately tortuous, there is minimal luminal irregularities.
RIGHT CORONARY ARTERY: The right coronary artery is a large caliber, dominant, moderately tortuous vessel which is rise to the right posterior descending artery and the right posterolateral system. There is minimal luminal irregularities.
CONCLUSIONS
1. Late presenting anterolateral ST elevation CT with There is 100% thrombotic occlusion in the mid LAD with PAUL 0 flow. Proximal LAD has a large burden of what appears to be organized nonocclusive thrombus, with 95% stenosis. No significant
improvement in flow despite multiple passes of mechanical aspiration thrombectomy, balloon angioplasty and vasodilators.
2. Normal right and left-sided filling pressures with normal cardiac output.
Impression/plan:
She has new acute right cerebellar infarct despite being on IV heparin
Plan on transfer to [place] for further neurologic evaluation
Continue medical management of CAD:
Cont ASA 81mg daily, hold on additional anti-platelet agent given transfusion dependent anemia
Cont high intensity statin, Crestor
Change Lopressor to Coreg through tube
Cont Diovan
Ischemic cardiomyopathy
Remains euvolemic, monitor wts closely.
PCWP was 12 mmHg at time of R/LHC on October 13
Cont Lopressor and Diovan and eventual consideration to transition to Entresto
Cont to monitor wt which decreased 3 pounds in the past 24-hour
LV apical thrombus:
Continue heparin gtt
Eventual transition to OAC when able
Transfusion depend anemia
Status post 2 units of blood
DKA
HbA1c elevated on admit
Tx as per primary service
Discussed with nursing and family at bedside including mother and . Also discussed with neurology and computed tomography technician
Progress Note - Directory Assistance Operator
Subjective
Date of Service: October 19, 2024
Sedated at present
Objective
Labs:
10/19/24 03:47
10/19/24 03:47
Labs
Hgb 10.5 g/dL (12.0-16.0) L 10/19/24 03:47
Hct 34.5 % (37.0-47.0) L 10/19/24 03:47
Plt Count 349 10^3/uL (130-400) 10/19/24 03:47
PT 18.3 Sec (11.4-14.6) H 10/13/24 17:53
INR 1.50 10/13/24 17:53
APTT 71.7 Sec (23.4-35.0) H 10/19/24 03:47
Sodium 138 mmol/L (135-145) 10/19/24 03:47
Potassium 3.6 mmol/L (3.5-5.1) 10/19/24 03:47
BUN 15 mg/dl (7-17) 10/19/24 03:47
Creatinine 0.7 mg/dL (0.6-1.0) 10/19/24 03:47
Glucose 224 mg/dl (70-99) H 10/19/24 03:47
Vital Signs and I&O:
Vital Signs
Temp Pulse Resp BP Pulse Ox
97.8 F 81 20 137/91 99
10/19/24 07:37 10/19/24 09:00 10/19/24 09:00 10/19/24 09:00 10/19/24 09:00
Vital Signs
Temp Pulse Resp BP Pulse Ox
97.8 F 81 20 137/91 99
10/19/24 07:37 10/19/24 09:00 10/19/24 09:00 10/19/24 09:00 10/19/24 09:00
Intake & Output
10/17/24 10/18/24 10/19/24 10/20/24
06:59 06:59 06:59 06:59
Intake Total 2352.7 / 2493.7 1790.5 / 1860.5 2131 / 2212 173 / 173
Output Total 2360 / 2360 1835 / 1860 1015 / 1015
Balance -7.3 / 133.7 -44.5 / 0.5 1116 / 1197 173 / 173
Physical Exam
Physical Exam
General: Sedate
Neck: Supple, no JVD, HJR, carotids +2 B/L, no bruits bilaterally.
Heart: Non displaced PMI, RRR, no murmurs, No S3, S4, no rubs.
Lungs: Scattered rhonchi
Extremities: No clubbing, cyanosis or edema bilaterally.
Neuro: Sedate
--- NOTE | 2024-10-19 09:45 | W.PN.UPDATE ---
Update Note
Progress Note Update
asked to eval patient
Large right cerebellar stroke with brainstem compression/4th ventricle compression and obstructive hydrocephalus
we do not have the ability to place EVD or do suboccipital craniectomy at [place]
transfer patient to higher level of care
--- NOTE | 2024-10-19 09:49 | PTCARENOTE ---
Left sided weakness noted this AM on [facility] Supervisor's assessment. Pt to radiology for head CT. Large occlusive stroke found. Family informed.
--- NOTE | 2024-10-19 10:19 | PTCARENOTE ---
Report given to Belia. Pt to [employer] flight stretcher and pt off the floor at 10:20. VSS at time of departure
--- NOTE | 2024-10-19 10:44 | PN.DE.MGMTRT ---
Insulin Management
- -
10/19/2024: Diabetes Management Consult Follow up
Patient presented to OSH at [facility] on 10/13/2024 with several days of SOB, nausea, fatigue and body aches.
EKG in the ER showed anterolateral ST elevations with Q-waves, with ST elevations in inferior leads with NM-depressions. Contrast echo showed a mural apical thrombus and pt was Dx with a late presentation anterior UT, and was TRX to for cardiac
intervention. BMP showed evidence of DKA and pt was started on DKA protocol, later transitioned to glycemic protocol when GAP closed.
Of note, pt denied personal and/or family Hx of diabetes. A1C was 13.3% on admission. Cr 0.8 eGFR >60.
Pt intubated, no sedation, unable to interview at this time.
Fasting glucose this AM 247.
Patient glucose range 133 to 247 10/18. Lantus increased to 30 Units @ HS, first dose 10/19 @ 2200 and Q 6 hour novolog increased to 15 units first dose at 12:00.
Patient being transferred to [facility]
Diabetes History
- -
Type of Diabetes: 2 requiring insulin
Pre-Admission Diabetes Regimen
10/18/24 10/19/24
12:37 03:47
Creatinine 0.7 0.7
Lab Results
Hemoglobin A1c 13.3 % (4.0-5.6) H 10/13/24 15:55
Insulin Pump Settings
IP Diabetes Regimen
10/18/24 10/18/24 10/18/24
11:41 12:37 17:40
Glucose 134 H
POC Glucose 133 H 239 H
10/18/24 10/18/24 10/19/24
20:57 23:39 03:47
Glucose 224 H
POC Glucose 230 H 236 H
10/19/24
05:35
Glucose
POC Glucose 247 H
Patient Education
--- NOTE | 2024-10-19 13:04 | W.PN.HOSP.TC ---
Addendum entered and electronically signed by Arnol Greer MD 10/19/24 16:49:
[id number]
Original Note:
Today's Communication/Plan
-
hep ggt
asa
transfer to [facility] for neurocrit care intervention including placing EVD or do suboccipital craniectomy at [place]
Assessment / Plan
Assessment / Plan
Gen: NAD, NCAT
CV: continues to remain RRR, +S1/S2, no m/r/g.
Resp: remains CTAB anteriorly, no rales, wheezes, or rhonchi.
Abd: continues to remain +BS, soft, NT, ND
Skin: No rashes.
Neuro: sedated
Psych: calm
10/14/24 13:22 Endotracheal Respiratory Culture - Final
S aureus-Methicillin Sensitive
10/14/24 13:22 Endotracheal Gram Stain - Final
10/14/24 00:17 Blood/Venous Blood Culture - Preliminary
No Growth in 48 hours- Final report to follow
10/14/24 12:07 Nasal Swab Influenza Types A & B (DOREEN) - Final
Negative for Influenza A & B, NAAT
Negative results must be combined with clinical observations
and patient history.
Nucleic Acid Amplification test (NAAT)performed on the
[employer] platform.
RH/C 10/13/24:
1. Late presenting anterolateral ST elevation FL with 100% thrombotic occlusion in the mid LAD with PAUL 0 flow. Proximal LAD has a large burden of what appears to be organized nonocclusive thrombus, with 95% stenosis. No significant improvement
in flow despite multiple passes of mechanical aspiration thrombectomy, balloon angioplasty and vasodilators.
2. Normal right and left-sided filling pressures with normal cardiac output.
Bedside EGD 10/14/24: LA Grade C erosive esophagitis in the mid and distal
esophagus with no bleeding.
- Few, small linear and superficial, well-healed
esophageal ulcers with no bleeding and no stigmata of
recent bleeding found in the distal esophagus.
- Otherwise normal proximal esophagus.
- Mild amount of nasogastric tube trauma present in
stomach.
- Otherwise, normal stomach on direct and retroflexion
views
- Normal examined duodenum up to the third portion
- The examination was otherwise normal without any old
or fresh blood or other bleeding lesions throughout
the examined upper GI tract.
- No specimens collected.
#Acute CVA
-Large right cerebellar stroke with brainstem compression/4th ventricle compression and obstructive hydrocephalus
-Tx to [facility] for further intervention ->we do not have the ability to place EVD or do suboccipital craniectomy at [place]
-ASA, Hep ggt
#Acute hypoxic respiratory failure
� Secondary to left lower lobe pneumonia
� Weaned off sedation
� Maintain ASV, pressure support once more awake; copious secretions more than likely preclude extubation at this time
Acute anterolateral STEMI:
-transfer from [facility]
-RHC/LHC 10/13/24 as above, 95% prox LAD occlusion, 100% mid LAD occlusion, unable to restore flow
-cont heparin gtt, transition to OAC once extubated and tolerating PO
-cont ASA/statin/BB
-trop 38.6, trended down
-cards following
-currently intubated (ACMV 400/18/5/35%) sedated with propofol/fentanyl
ICM/Acute HFrEF:
-Echo: LVEF 30-35% with LAD territory wall motion abnormality and LV thrombus
-on heparin gtt
-cont BB/ARB
#LV apical thrombus:
Continue heparin gtt for now
Eventual transition to OAC when stable
#Sepsis
#LLL Pneumonia
-currently on Cefepime; add doxy;
-Flu/COVID NEG
-follow Cxs, as above, resp Cx with MSSA
-dc vanc, mrsa negative
-CXR 10/15/24: Cannot exclude some left basilar opacification such as subsegmental atelectasis and/or pneumonia.
-fever is possibly due to PNA (CXR is equivocal) and therefore this would qualify as sepsis due to LLL PNA
-f/u cultures
Acute DKA:
-Switch to subcutaneous insulin
-note, lactic acid normal
Acute blood loss anemia:
-bedside EGD above and notable for erosive esophagitis, well-healed esophageal ulcers without bleeding or stigmata of recent bleeding
-cont PPI gtt x 72 hours
-s/p 3U pRBCs
-trend Hb
-appreciate GI who has signed off
#Transaminitis
� I suspect secondary to antibiotics versus congestive hepatopathy
� Continue to monitor trend
� Complete abdominal ultrasound
Other problems:
HANNA: resolved with IVFs
Hypokalemia, replete
Hypophosphatemia, replete
Hypocalcemia, replete
Obesity due to excess calories
FULL/Heparin gtt
More than 30 minutes spent in discharge including
Final examination of the patient
Summarizing hospital stay
Instructions for continuing care to all relevant caregivers
Preparation of discharge records, prescriptions, and referral forms
Total time spent (50 in minutes):
Anticipated Discharge: Today
Subjective/Interval History
-
Date of Service: October 19, 2024
left gaze preference (does not cross the midline to the right), weaker on the left side, unable to lift the left leg -CT showing large right cerebellar stroke with brainstem compression/fourth ventricle compression obstructive hydrocephalus
Objective Data
-
Labs:
Laboratory Results
10/19/24 10/19/24 10/19/24
03:47 04:39 10:30
WBC 17.9 H
Hgb 10.5 L
Hct 34.5 L
Plt Count 349
APTT 71.7 H Cancelled
HCO3 19.7 L
Sodium 138
Potassium 3.6
Chloride 107
Carbon Dioxide 23
BUN 15
Creatinine 0.7
Glucose 224 H
Calcium 7.9 L
Vital Signs:
Vital Signs
Temp Pulse Resp BP Pulse Ox
97.8 F 87 21 139/89 99
10/19/24 07:37 10/19/24 09:56 10/19/24 09:56 10/19/24 10:00 10/19/24 09:56
I&O
10/18/24 10/19/24 10/20/24
06:59 06:59 06:59
Intake Total 1790.5 / 1860.5 2131 / 2212 173 / 173
Output Total 1835 / 1860 1015 / 1015
Balance -44.5 / 0.5 1116 / 1197 173 / 173
Review of Systems
-
History Source: Patient
All other systems: Not reviewed unless documented
Data Reviewed
-
Diagnostic Radiology: Report Reviewed by me
CT Scan: Report Reviewed by me
Labs: Labs Reviewed by me
--- NOTE | 2024-10-19 13:10 | W.DS.TRANS ---
DC Summary - Production Control Coordinator
-
Discharge Instructions:
Discharge Diagnosis/Procedures late STEMI, balloon and thrombectomy of LAD,
Diabetic ketoacidosis
Instructions:
Stand-Alone Forms: DC Instructions- Cath/EP Lab
Changes to Home Medications: No
Discharge Medications:
DC Medications w/original date entered in [employer]
cyclobenzaprine 10 mg tablet 10 mg PO HS 10/13/24
ibuprofen 600 mg tablet 600 mg PO TID PRN pain 10/13/24
norgestimate 0.18 mg/0.215 mg/0.25 mg-ethinyl estradiol 25 mcg tablet 1 tab PO DAILY 10/13/24
Home Medication Changes
tx
Pending Results: No
== END 2024-10-19 10:21 | disposition short-term general hospital (02) | DRG 250 ==
LOC: ICU 15:16
PROVIDERS: Internal Medicine; Internal Medicine Cardiovascular Disease; Internal Medicine Critical Care Medicine; Internal Medicine Interventional Cardiology; Nuclear Medicine Nuclear Cardiology; Nurse Practitioner; Nurse Practitioner Family; Nurse Practitioner Primary Care; Radiology Diagnostic Radiology; Radiology Vascular & Interventional Radiology; Surgery; ADMITTING PHYSICIAN Hospitalist; ATTENDING PHYSICIAN Internal Medicine; CONSULT PHYSICIAN Internal Medicine Critical Care Medicine; CONSULT PHYSICIAN Student in an Organized Health Care Education/Training Program; FAMILY PHYSICIAN Family Medicine
PROC: 0BH18EZ Insertion of Endotracheal Airway into Trachea, Via Natural or Artificial Opening Endoscopic (ICD-10-PCS; 2024-10-13)
PROC: 5A1955Z Respiratory Ventilation, Greater than 96 Consecutive Hours (ICD-10-PCS; 2024-10-13)
PROC: 4A023N6 Measurement of Cardiac Sampling and Pressure, Right Heart, Percutaneous Approach (ICD-10-PCS; 2024-10-13)
PROC: B211YZZ Fluoroscopy of Multiple Coronary Arteries using Other Contrast (ICD-10-PCS; 2024-10-13)
PROC: 02C03ZZ Extirpation of Matter from Coronary Artery, One Artery, Percutaneous Approach (ICD-10-PCS; 2024-10-13)
PROC: 0DJ08ZZ Inspection of Upper Intestinal Tract, Via Natural or Artificial Opening Endoscopic (ICD-10-PCS; 2024-10-14)
PROC: 30233N1 Transfusion of Nonautologous Red Blood Cells into Peripheral Vein, Percutaneous Approach (ICD-10-PCS; 2024-10-14)
PROC: 0DH67UZ Insertion of Feeding Device into Stomach, Via Natural or Artificial Opening (ICD-10-PCS; 2024-10-14)
PROC: 02H633Z Insertion of Infusion Device into Right Atrium, Percutaneous Approach (ICD-10-PCS; 2024-10-14)
DX: I21.09 ST elevation (STEMI) myocardial infarction involving other coronary artery of anterior wall (principal); A41.9 Sepsis, unspecified organism; E11.10 Type 2 diabetes mellitus with ketoacidosis without coma; J96.02 Acute respiratory failure with hypercapnia; I50.21 Acute systolic (congestive) heart failure; K22.11 Ulcer of esophagus with bleeding; N17.9 Acute kidney failure, unspecified; J18.9 Pneumonia, unspecified organism; J96.01 Acute respiratory failure with hypoxia; I63.89 Other cerebral infarction; D50.9 Iron deficiency anemia, unspecified; I25.5 Ischemic cardiomyopathy; D75.839 Thrombocytosis, unspecified; I25.10 Atherosclerotic heart disease of native coronary artery without angina pectoris; R74.01 Elevation of levels of liver transaminase levels; I51.3 Intracardiac thrombosis, not elsewhere classified; I10 Essential (primary) hypertension; D62 Acute posthemorrhagic anemia; G91.1 Obstructive hydrocephalus; E66.09 Other obesity due to excess calories; Z82.49 Family history of ischemic heart disease and other diseases of the circulatory system; Z68.30 Body mass index [BMI] 30.0-30.9, adult; Z99.11 Dependence on respirator [ventilator] status; Z11.52 Encounter for screening for COVID-19
CPT/HCPCS: 36600; 70450; 71045; 74018; 76700; 76937; 80048; 80053; 80061; 80076; 81003; 81015; 82010; 82607; 82728; 82746; 82805; 82947; 82962; 83036; 83540; 83550; 83605; 83735; 83880; 84100; 84132; 84145; 84425; 84478; 84484; 85014; 85018; 85025; 85027; 85347; 85610; 85730; 86850; 86900; 86901; 86920; 87040; 87070; 87147; 87186; 87205; 87502; 87811; 92941; 93005; 93306; 93456; 94002; 94003; 94640; 99152; 99153; C1725; C1757; C1894; J1327; J3480; P9016; Q9957; Q9967